=== PATIENT | male | born 1965 | race Caucasian/White ===

== ENCOUNTER 2018-11-30 13:08 | Emergency (ER) | payer OTHER ==
--- OUTSIDE RECORDS SUMMARY | 2018-11-30 13:11 | XMS REPORT | Continuity of Care Document ---
:1965 Author Organization [employer] Care Team Providers Name Role Phone [employer] Unavailable Unavailable Problems Problem Status Onset Classification Date Comments Source Date Reported SPONTANEOUS Active [facility] RIGHT 9 Medical HEMOTHORAX Center LARGE PLEURAL Active [facility] EFFUSION 9 Medical Center Pleural 10/08/2018 [facility] effusion, not Medical elsewhere Center classified PLEURAL Active [facility] EFFUSION, NOT Medical ELSEWHERE Center CLASSIFI Medications Medication Details Route Status Patient Ordering Order Source Instructions Provider Date naproxen 500 mg 500 mg=1 tab, Active [facility] oral tablet PO, BID, PRN 2019 Medical Pain, X 10 day, Center # 20 tab, 0 Refill(s), Pharmacy: [place] [id number] Acetaminophen 1,000 mg=2 tab, Active [place] 500 MG Oral PO, Q6H, 0 2018 Medical Tablet Refill(s) [place] Alprazolam 0.5 0.5 mg, 1 tab, No Longer [facility] MG Oral Tablet Route: PO, Drug Active 2018 Medical form: TAB, TID, Center Dosing Weight 90.455, kg, PRN as needed for anxiety, Start date: 10/02/18 13:43:00 CDT, Duration: 30 day, Stop date: 11/01/18 13:42:00 CDTNotes: With food or milk (Same as: Xanax) Naproxen 500 mg, 1 tab, No Longer [facility] Route: PO, Drug Active 2018 Medical form: TAB, Center Q12H, kg, Start date: 10/02/18 9:00:00 CDT, Duration: 30 day, Stop date: 10/31/18 21:00:00 CDTNotes: (Same as: Naprosyn) Take with food. gabapentin 300 mg, 1 cap, No Longer [facility] Route: PO, Drug Active 2018 Medical form: CAP, Q8H, Center kg, Start date: 10/02/18 8:00:00 CDT, Duration: 30 day, Stop date: 11/01/18 0:00:00 CDTNotes: (Same as: Neurontin) Iohexol 100 mL, Route: Inactive [facility] IVP, Drug Form: 2019 Medical SOLN, Dosing Center Weight 90.455, kg, ONCALL, STAT, Start date: 10/01/18 18:50:00 CDT, Duration: 1 doses or times, Dose=2.2ml/kg, Max fivc=150po -- "To be infused by Radiology Staff ONLY" Albuterol 0.833 3 mL, Route: No Longer [facility] MG/ML / NEB, Drug Form: Active 2019 Medical Ipratropium SOLN, Dosing Center [place] 0.167 Weight 90.455, MG/ML Inhalant kg, RQID, STAT, Solution Start date: [DuoNeb] 10/01/18 16:47:00 CDT, Duration: 30 day, Stop date: 10/31/18 15:00:00 CDTNotes: (Same as: Duoneb) Fentanyl 100 microgram, Inactive [facility] Route: IV, 2019 Medical ONCE, Dosing Center Weight 90.455, kg, Start date: 10/01/18 12:32:00 CDT, Stop date: 10/01/18 12:32:00 CDT Versed 4 mg, Route: Inactive [facility] IVP, ONCE, 2019 Medical Dosing Weight Center 90.455, kg, Start date: 10/01/18 12:32:00 CDT, Stop date: 10/01/18 12:32:00 CDT Lovenox 40 mg, 0.4 mL, No Longer [facility] Route: SUB-Q, Active 2019 Medical Drug form: INJ, Center [id number], Dosing Weight 90.455, kg, Start date: 09/30/18 17:00:00 CDT, Duration: 30 day, Stop date: 10/29/18 12:00:00 CDTNotes: (Same as: Lovenox) Albuterol 0.833 3 ml, Route: No Longer [place] MG/ML / NEB, Drug Form: Active 2019 Medical Ipratropium SOLN, Dosing Center [place] 0.167 Weight 90.455, MG/ML Inhalant kg, PRN, PRN Solution Respiratory [DuoNeb] Pathway, Start date: 09/30/18 16:16:00 CDT, Duration: 30 day, Stop date: 10/30/18 16:15:00 CDTNotes: (Same as: Duoneb) remove patch 1 patch, Route: No Longer [facility] TOP, Daily, Active 2018 Medical Drug form: [place] ERFILM, Start date: 09/30/18 13:00:00 CDT, Duration: 30 day, Stop date: 10/29/18 13:00:00 CDTNotes: Remove patch 12 hours after application each day. celecoxib 200 mg, 1 cap, No Longer [place] Route: PO, Drug Active 2019 Medical form: CAP, Center Q12H, kg, For patients LESS than 75 years old. Hold in all patients if CrCl Notes: NSAID. Please check indication. Not for seizure. (Same As: CeleBREX) Acetaminophen 1,000 mg, 2 No Longer [place] tab, Route: PO, Active 2019 Medical Drug form: TAB, Center Q6H, kg, Start date: 09/30/18 6:00:00 CDT, Duration: 30 day, Stop date: 10/30/18 0:00:00 CDTNotes: Max acetaminophen 4000 mg/day (4 gm/day). (Same as: Tylenol Extra Strength) Iohexol 75 mL, Route: Inactive [place] IVP, Drug Form: 2019 Medical SOLN, , Center ONCALL, STAT, Start date: 09/30/18 1:17:00 CDT, Duration: 1 doses or times, Dose=2.2ml/kg, Max chno=384pd -- "To be infused by Radiology Staff ONLY" Lidocaine 1 patch, Route: No Longer [place] Hydrochloride TOP, Q24H, Drug Active 2019 Medical 0.05 MG/MG form: FILM, Center Transdermal Start date: Patch 09/30/18 [Lidoderm] 1:00:00 CDT, Duration: 30 day, Stop date: 10/29/18 1:00:00 CDTNotes: . (Same as: Lidoderm) "Remove old patch before application of new patch" Enoxaparin 30 mg, 0.3 mL, Inactive [facility] Route: SUB-Q, 2019 Medical Drug form: INJ, Center [id number], , Start date: 09/30/18 1:00:00 CDT, Duration: 30 day, Stop date: 10/29/18 13:00:00 CDTNotes: (Same as: Lovenox) pregabalin 100 mg, 1 cap, No Longer [facility] Route: PO, Drug Active 2018 Medical form: CAP, Q8H, [facility], Priority: NOW, Start date: 09/30/18 0:01:00 CDT, Duration: 48 hr, Stop date: 10/02/18 0:00:00 CDTNotes: (Same as: Lyrica) Tramadol 100 mg, 2 tab, No Longer [facility] Route: PO, Drug Active 2018 Medical form: TAB, Q6H, [facility], Priority: NOW, Start date: 09/30/18 0:01:00 CDT, Duration: 30 day, Stop date: 10/30/18 0:00:00 CDTNotes: Not to exceed 400mg/day. (Same As: Ultram) Oxycodone 5 mg, 1 tab, No Longer [facility] Hydrochloride 5 Route: PO, Drug Active 2018 Medical MG Oral Tablet form: TAB, Q4H, [facility], PRN Pain Score 4-6, Start date: 09/30/18 0:01:00 CDT, Duration: 30 day, Stop date: 10/30/18 0:00:00 CDTNotes: (Same as: Roxicodone) Ketorolac 30 mg, Route: Inactive [facility] IVP, ONCE, , 2019 Medical Start date: [place] 09/30/18 0:01:00 CDT, Stop date: 09/30/18 0:01:00 CDT Allergies, Adverse Reactions, Alerts Substance Category Reaction Severity Reaction Status Date Comments Source type Reported No Known Assertion Drug [facility] Medication allergy Medical Allergies Center Immunizations No Data Provided for This Section Results Order Name Results Value Reference Date Interpretation Comments Source Range HEMATOLOGY Hct 35.9 42.0 - 10/03 [facility] 54.0 /2019 Medical Center HEMATOLOGY Hgb 11.9 14.0 - 10/03 [facility] 18.0 /2019 [facility] HEMATOLOGY WBC 12.5 3.7 - 10.4 10/02 [facility] HEMATOLOGY MCHC 33.6 32.0 - 10/02 [place] 36.0 [facility] HEMATOLOGY MCH 31.0 27.0 - 10/02 [place] 31.0 [facility] HEMATOLOGY Hgb 11.6 14.0 - 10/02 [place] 18.0 [facility] HEMATOLOGY RBC 3.76 4.70 - 10/02 [place] 6.10 [facility] HEMATOLOGY MCV 92.1 80.0 - 10/02 [place] 94.0 2019 [facility] HEMATOLOGY Hct 34.6 42.0 - 10/02 [place] 54.0 [facility] HEMATOLOGY Platelet 359 133 - 450 10/02 [facility] HEMATOLOGY RDW 13.1 11.5 - 10/02 [place] 14.5 [facility] HEMATOLOGY MPV 8.2 7.4 - 10.4 10/02 [facility] HEMATOLOGY Eosinophils 1.0 0.0 - 0.5 10/02 [facility] HEMATOLOGY Neutrophils 8.9 1.5 - 8.1 10/02 [facility] HEMATOLOGY Basophils 0.6 0.0 - 1.0 10/02 [facility] HEMATOLOGY Lymphocytes 15.1 20.0 - 10/02 [facility] 40.0 [facility] HEMATOLOGY Segs 71.0 45.0 - 10/02 [place] 75.0 [facility] HEMATOLOGY Monocytes 5.6 2.0 - 12.0 10/02 /2018 [facility] HEMATOLOGY Basophils # 0.1 0.0 - 0.2 10/02 [facility] HEMATOLOGY Monocytes # 0.7 0.0 - 0.8 10/02 /2018 [facility] HEMATOLOGY Lymphocytes 1.9 1.0 - 5.5 10/02 [facility] /2018 [facility] HEMATOLOGY Eosinophils 7.7 0.0 - 4.0 10/02 [facility]2018 [facility] HEMATOLOGY Segs 77.8 45.0 - 10/01 [place] 75.0 2019 [facility] HEMATOLOGY Lymphocytes 13.6 20.0 - 10/01 [place] 40.0 /2019 [facility] HEMATOLOGY Lymphocytes 2.6 1.0 - 5.5 10/01 [facility] /2019 [facility] HEMATOLOGY Basophils 0.4 0.0 - 1.0 10/01 [facility] HEMATOLOGY Eosinophils 2.3 0.0 - 4.0 10/01 [facility] HEMATOLOGY Basophils # 0.1 0.0 - 0.2 10/01 [facility] HEMATOLOGY Eosinophils 0.4 0.0 - 0.5 10/01 [place] # /2018 [facility] HEMATOLOGY Monocytes 5.9 2.0 - 12.0 10/01 [facility] HEMATOLOGY Neutrophils 15.0 1.5 - 8.1 10/01 [place] # /2019 [facility] HEMATOLOGY Monocytes # 1.1 0.0 - 0.8 10/01 [facility] HEMATOLOGY Hct 38.4 42.0 - 10/01 [place] 54.0 [facility] HEMATOLOGY MPV 8.6 7.4 - 10.4 10/01 [facility] HEMATOLOGY Hgb 12.8 14.0 - 10/01 [place] 18.0 [facility] HEMATOLOGY Platelet 443 133 - 450 10/01 [facility] HEMATOLOGY RDW 13.2 11.5 - 10/01 [place] 14.5 [facility] HEMATOLOGY RBC 4.15 4.70 - 10/01 [place] 6.10 [facility] HEMATOLOGY MCHC 33.4 32.0 - 10/01 [place] 36.0 2019 [facility] HEMATOLOGY MCH 30.9 27.0 - 10/01 [place] 31.0 [facility] HEMATOLOGY MCV 92.5 80.0 - 10/01 [place] 94.0 [facility] HEMATOLOGY WBC 19.2 3.7 - 10.4 10/01 [facility] [place] [id number] 09/30 [facility] BODY FLUIDS Nucleated 775 09/30 [facility] Cells BF /2018 [facility] BODY FLUIDS Lymph BF 12 09/30 [facility] BODY FLUIDS Neutrophils 86 09/30 [place] BF [facility] BODY FLUIDS Clarity BF Marked Clear 09/30 [place] *ABN* /2018 [facility] (09/30/18 5:48 AM) Center BODY FLUIDS CellCnt BF Pleural 09/30 [place] Type (09/30/18 5:48 AM) [facility] BODY FLUIDS Color BF Red Colorless 09/30 [place] *ABN* /2018 Medical (09/30/18 5:48 AM) Center BODY FLUIDS Eos BF 1 09/30 [facility] BODY FLUIDS Macrophage 1 09/30 [facility] BF [facility] BODY FLUIDS Supernat BF Red Colorless 09/30 [facility] *ABN* [facility] (09/30/18 5:48 AM) [place] BODY FLUIDS Alb BF Type Pleural 09/30 [facility] *NA* [facility] (09/30/18 5:48 AM) [place] BODY FLUIDS Albumin BF 2.1 09/30 [facility] BODY FLUIDS Prot BF Type Pleural 09/30 [facility] *NA* [facility] (09/30/18 5:48 AM) [place] BODY FLUIDS Protein BF 4.9 09/30 [facility] BODY FLUIDS pH BF 8.00 09/30 [facility] BODY FLUIDS pH BF Type Pleural 09/30 [facility] (09/30/18 5:48 AM) [facility] BODY FLUIDS LDH BF 2891 09/30 [facility] BODY FLUIDS LDH BF Type Pleural 09/30 [facility] (09/30/18 5:48 AM) [facility] BODY FLUIDS Glucose BF 121 09/30 [facility] BODY FLUIDS Gluc BF Type Pleural 09/30 [facility] *NA* [facility] (09/30/18 5:48 AM) [place] Gram Stain Gram Stain 09/30 [facility] Report Medical By: [facility] Culture: No Growth 09/30 [facility] Aspirate/ [facility] Fluid/Tissue CHEM PANEL Total 7.6 6.4 - 8.4 09/30 [facility] CHEM PANEL LDH 433 98 - 192 09/30 [place] [facility] CHEM PANEL eGFR 99 09/30 Result Comment: The Medical eGFR is Center calculated using the CKD-EPI formula. In most young, healthy individuals the eGFR will be >90 mL/min/1.73m2 . The eGFR declines with age. An eGFR of 60-89 may be normal in some populations, particularly the elderly, for whom the CKD-EPI formula has not been extensively validated. Use of the eGFR is not recommended in the following populations:< br/>
Yana viduals with unstable creatinine concentration s, including patients and those with serious co-morbid conditions.<b r/>
Patie nts with extremes in muscle mass or diet.

The data above are obtained from the National Kidney Disease Education Program (NKDEP) which additionally recommends that when the eGFR is used in patients with extremes of body mass index for purposes of drug dosing, the eGFR should be multiplied by the estimated BMI. CHEM PANEL Potassium 4.7 3.5 - 5.1 09/30 [facility] Lvl /2018 [facility] CHEM PANEL Chloride Lvl 105 95 - 109 09/[address] CHEM PANEL CO2 24 24 - 32 09/[address] CHEM PANEL Calcium Lvl 9.0 8.5 - 10.5 09/[address] CHEM PANEL Glucose Lvl 174 70 - 99 09/[address] CHEM PANEL AGAP 15.7 10.0 - 09/30 [facility] 20.0 [facility] CHEM PANEL BUN 16 7 - 22 09/[address] CHEM PANEL Creatinine 0.84 0.50 - 09/30 [facility] Lvl 1.40 [facility] CHEM PANEL Sodium Lvl 140 135 - 145 09/30 [facility]2018 [facility] HEMATOLOGY MCHC 33.6 32.0 - 09/30 [facility] 36.0 [facility] HEMATOLOGY MCH 31.2 27.0 - 09/30 [facility] 31.0 [facility] HEMATOLOGY WBC 18.3 3.7 - 10.4 09/30 [facility]2018 [facility] HEMATOLOGY MCV 92.8 80.0 - 09/30 [facility] 94.0 [facility] HEMATOLOGY RBC 4.31 4.70 - 09/30 [facility] 6.10 [facility] HEMATOLOGY MPV 8.5 7.4 - 10.4 09/[address] HEMATOLOGY Platelet 363 133 - 450 09/[address] HEMATOLOGY RDW 13.1 11.5 - 09/30 [facility] 14.5 [facility] Pathology Reports No Data Provided for This Section Diagnostic Reports Report Value Date Source Chest 1view DX EXAM: XR CHEST 1 VIEW 10/03/2018 [facility] Medical DATE: 10/03/2018 0035 hours Center INDICATION: - CT removal COMPARISON: Chest radiograph 10/02/2018. TECHNIQUE: AP chest. FINDINGS: Lines, tubes and hardware: None. Lungs and pleura: Bilateral hazy airspace opacities. Right pleural effusion. Small right apical pneumothorax, stable. Heart and mediastinum: The heart size is normal for technique. The mediastinal contours are normal. Pulmonary venous hypertension and interstitial pulmonary edema are present. Upper: Abdomen: No abnormally dilated bowel loops are seen in the included portion of the upper abdomen. Bones: No acute abnormality. IMPRESSION: 1. No significant change from prior study. Bilateral hazy opacities which likely represent comminution atelectasis and interstitial pulmonary edema. Superimposed infection cannot be excluded. 2. Small right pleural effusion. 3. Small right apical pneumothorax, stable. Chest 1view DX EXAM: XR CHEST 1 VIEW 10/02/2018 [facility] [place] [facility] DATE: 10/02/2018 4:15 PM CDT Center INDICATION: - 4H post CT removal COMPARISON: 10/02/2018 TECHNIQUE: AP chest FINDINGS/IMPRESSION: Compared to the prior examination there remains a tiny right apical pneumothorax. There is bilateral pulmonary opacities compatible with pneumonia or pulmonary edema. Chest 1view DX EXAM: XR CHEST 1 VIEW 10/02/2018 [facility] [place] [facility] DATE: 10/02/2018 0358 hours. Center INDICATION: Cough. COMPARISON: Chest radiograph 10/01/2018 TECHNIQUE: AP chest. FINDINGS: Lines, tubes and hardware: Chest tube projects over the right hemithorax and is unchanged from prior study. Lungs and pleura: Bilateral patchy and hazy airspace opacities are seen. Trace right apical pneumothorax is unchanged. Heart and mediastinum: The heart size is normal for technique. The mediastinal contours are normal. Pulmonary vascularity is normal. Upper: Abdomen: No abnormally dilated bowel loops are seen in the included portion of the upper abdomen. Bones: No acute abnormality. IMPRESSION: 1. Interval improvement in the bilateral patchy and hazy airspace opacities. These likely represent a combination of atelectasis, pulmonary edema , aspiration, and/or infection. 2. Trace right apical pneumothorax, stable. Chest Pulmonary EXAM: CTA CHEST WITH CONTRAST 10/01/2018 [facility] [place] [facility] Embolism CTA DATE: 10/01/2018 17:56 CDT Center INDICATION: - hypoxia COMPARISON: 09/30/2018 TECHNIQUE: Volumetric CT acquisition of the chest, during pulmonary arterial phase, after intravenous contrast. Axial, sagittal, coronal, and oblique MIP reconstructions are created at the acquisition workstation. IV Contrast: 80 mL of Omnipaque 350 DLP: 720 mGy-cm FINDINGS: Lines, tubes and hardware: A right approach chest tube is seen within the right hemithorax within a small pneumothorax. Lower neck: Mildly enlarged 1.2 cm left supraclavicular lymph node is noted. Axilla: Expected subcutaneous emphysema secondary to chest tube placement in the right chest wall. No enlarged lymph nodes. Airway: Patent. Lungs and pleura: * Moderate paraseptal and centrilobular emphysema left greater than right with an upper lobe predominance. * A 2.5 x 3.0 cm solid, round, well-defined mass with adjacent groundglass opacities is seen in the anterior and inferior aspect of the right upper lobe ( series 7, image 81). * A 1 cm, round, solid pulmonary nodule seen in the lateral aspect of the apical segment of the right upper lobe (series 7, image 45). * And the previously seen large area of heterogeneously enhancing consolidation that occupies a large portion of the right lower lobe and part of the right middle lobe with air bronchograms has improve d compared to the previous study suggestive of improving infectious process. * Diffuse groundglass opacity seen in the left upper and lower lobes which may represent inflammatory or infectious etiology, slightly improved compared to previous study. * Trace right hydropneumothorax is present, increased compared to previous study. Mediastinum, milagros and intrathoracic lymph nodes: Large paratracheal mildly enhancing lymph node that measures 2.2 x 2.2 cm is seen on image 74 of series 7. A 1.6 x 1.5 cm enlarged lymph node in the AP w indow seen on image 73 series 7. Multiple hilar and mediastinal subcentimeter lymph nodes are also seen. Heart, pericardium and great vessels: The heart is normal in size. No pericardial effusion. Ascending aorta is ectatic, the pulmonary trunk is at the upper limits of normal. Minimal aortic and coronary calcifications are seen. Measurements and appearance of the thoracic aorta are normal. At the same level where the ascending aorta measures 3.6 cm the pulmonary trunk measures 3.0 cm. There is no pulmonary embolus. Upper abdomen: Adrenal glands are unremarkable. Bones: No acute abnormality. Age-related degenerative findings. Soft tissues: Normal. IMPRESSION: 1. No pulmonary embolism. No CT evidence of right heart strain. 2. Interval decrease in the size of the small right hydropneumothorax with chest tube in place. 3. Stable right upper lobar solid pulmonary lesions, highly concerning for neoplastic process either primary or secondary. 4. No new lung nodules identified. 5. Interval improvement in the right lung consolidative changes and left lung groundglass opacities suggestive of improving infectious or inflammatory changes. 6. Mediastinal lymphadenopathy is present, with large right paratracheal lymph node measuring up to 2.2 cm in diameter with globular shape. 7. Moderate paraseptal and centrilobular emphysema left greater than right with an upper lobe predominance. 8. Scattered aortic and coronary artery calcifications. Chest 1view DX EXAM: XR CHEST 1 VIEW 10/01/2018 [facility] [place] [facility] DATE: 10/01/2018 16:45 [facility] Center INDICATION: - shortness of breath s/p lung biopsy COMPARISON: 10/01/2018 TECHNIQUE: AP chest. FINDINGS: Sidehole of right chest tube remains overlying the subcutaneous and should be advanced. Stable small right hydropneumothorax. Background of emphysema. Alveolar opacity projecting over the right midlung corresponds right upper lobe mass concerning for malignancy better seen on prior CT. Patchy opacities bilaterally with bibasilar predominance may represent infectious/inflammatory etiology or edema, unchanged. Stable cardiac mediastinal silhouette. IMPRESSION: 1. Overall findings are stable since prior chest radiograph as described above. 2. The sidehole of right chest tube remains overlying subcutaneous and should be advanced. 3. Stable small right hydropneumothorax. Chest 1view DX EXAM: XR CHEST 1 VIEW 10/01/2018 [facility] [place] [facility] DATE: 10/01/2018 10:58 T Center INDICATION: - shortness of breath COMPARISON: 09/30/2018 TECHNIQUE: AP chest. FINDINGS: Sidehole of right chest tube remains overlying the subcutaneous and should be advanced. Small right hydropneumothorax. Low lung volumes. Background of emphysema. Nodular opacity projecting over the right midlung corresponds to right upper lobe mass concerning for malignancy better seen on CT chest 09/30/2018. Patchy opa cities bilaterally with bibasilar predominance may represent infectious/ inflammatory etiology or edema. Stable cardiomediastinal silhouette. Partially imaged subcutaneous emphysema in the right chest wall. IMPRESSION: 1. Stable right upper lobe mass concerning for malignancy. Please refer to prior CT. 2. Patchy opacities bilaterally are stable and may represent infectious/ inflammatory etiology or edema. 3. Sidehole of right chest tube remains overlying the subcutaneous and should be advanced. Small right hydropneumothorax is unchanged. Chest 1view DX EXAM: Chest 1view DX 09/30/2018 [facility] [place] [facility] DATE: 09/30/2018 3:20 CDT Center INDICATION: - pleural effusion with chest tube ADDITIONAL HISTORY: Spontaneous hemothorax. COMPARISON: Chest 1 view 09/29/2018 at 2306 hours. TECHNIQUE: Portable AP semierect chest with a total of 1 image(s). FINDINGS: Lines, tubes, devices: Again seen is a right mid chest tube now with the distal side port just outside of the rib cage level. Lungs: The lung volumes are diminished with patchy and groundglass opacities at the right lung base and throughout the left lung. Pleura: There is a small right pleural effusion/hemothorax. There is a small right apical pneumothorax that is grossly unchanged. Heart and mediastinum: The heart size is normal for technique. The pulmonary vasculature is obscured. The mediastinal contours are normal. Bones: No acute bony abnormality is identified. Soft Tissue: Again seen is subcutaneous emphysema along the right lower lateral chest wall. IMPRESSION: 1. No change in the small right apical pneumothorax. 2. Right mid chest tube position with the distal side port just outside the rib cage level. 3. No change in patchy and groundglass opacities at the right lung base and throughout the left lung. Chest w contrast CT EXAM: CT CHEST WITH CONTRAST 09/30/2018 [facility] [place] [facility] DATE: 09/30/2018 0115 hours Center INDICATION: - Pleural effusion of unknown etiology COMPARISON: Chest radiograph 09/29/2018 at 2306 hours. TECHNIQUE: Volumetric CT of the chest is acquired following intravenous administration of contrast. Axial, coronal and sagittal images are provided. Axial MIPS images are provided. IV Contrast: 75 mL Omnipaque 350. DLP: 734 mGy-cm FINDINGS: Lines, tubes and hardware: A right approach chest tube is seen within the right hemithorax within a small pneumothorax. Lower neck: Mildly enlarged 1.2 cm left supraclavicular lymph node is noted. Axilla: Expected subcutaneous emphysema secondary to chest tube placement in the right chest wall. No enlarged lymph nodes. Airway: Patent. Lungs and pleura: * Moderate paraseptal and centrilobular emphysema left greater than right with an upper lobe predominance. * A 2.5 x 3.0 cm solid, round, well-defined mass with adjacent groundglass opacities is seen in the anterior and inferior aspect of the right upper lobe ( series 4, image 80). * A 1 cm, round, solid pulmonary nodule seen in the lateral aspect of the right upper lobe. * Large area of heterogeneously enhancing consolidation that occupies a large portion of the right lower lobe and part of the right middle lobe with air bronchograms present that likely represents an infectious etiology. * Diffuse groundglass opacity seen in the left upper and lower lobes which may represent inflammatory or infectious etiology. * Small right hydropneumothorax is present. Mediastinum, milagros and intrathoracic lymph nodes: Large paratracheal mildly enhancing lymph node that measures 2.2 x 2.2 cm is seen on image 71 of series 4. A 1.3 x 1.3 cm enlarged lymph node in the AP w indow seen on image 64 series 4. Multiple hilar and mediastinal subcentimeter lymph nodes are also seen. Heart, pericardium and great vessels: The heart is normal in size. No pericardial effusion. Ascending aorta is ectatic, the pulmonary trunk is at the upper limits of normal. Minimal aortic and coronary calcifications are seen. Upper abdomen: Mild hepatomegaly. Adrenal glands are unremarkable. Bones: No acute abnormality. Age-related degenerative findings. Soft tissues: Normal. IMPRESSION: 1. Small right hydropneumothorax with chest tube in place. 2. A 2.5 x 3.0 cm solid, irregular mass with adjacent groundglass opacities is seen in the anterior and inferior aspect of the right upper lobe (series 4, image 80). This is concerning for malignancy. An additional 1 cm round solid pulmonary nodules seen in the lateral aspect of the left upper lobe and is concerning for a primary malignancy or metastases. 3. Mediastinal lymphadenopathy is present, with large right paratracheal lymph node measuring 2.4 x 2.3 cm on series 4 image 67. 4. Large area of heterogeneously enhancing consolidation that occupies a large portion of the right lower lobe and part of the right middle lobe with air bronchograms present that likely represents a c ombination of atelectasis and infectious etiology. Superimposed hemorrhage not excluded. 5. Diffuse groundglass opacity seen in the left upper and lower lobes which is nonspecific but could represent edema, infection and/or pneumonitis. 6. Moderate paraseptal and centrilobular emphysema left greater than right with an upper lobe predominance. 7. Scattered aortic and coronary artery calcifications. Chest 1view DX EXAM: XR CHEST 1 VIEW 09/29/2018 [facility] DATE: 09/29/2018 at 2306 hours Center INDICATION: - SOB, after chest tube placement ADDITIONAL INFORMATION: 'tx from [facility] for spontaneous RIGHT sided hemothorax. chest tube in place since 1644 with total 2500ml output.' COMPARISON: Chest 1 view 09/29/2018 at 1803 hours TECHNIQUE: AP semierect chest with a total of 2 images. UT SECTION: ER FINDINGS: Lines, tubes and hardware: The right-sided chest tube has been advanced medially with the distal side port just inside the rib cage level. Lungs and pleura: A small apical pneumothorax on the right persists. Hazy opacities are seen in the lower lungs bilaterally. There is a small right-sided pleural effusion/hemothorax. Heart and mediastinum: The heart size is normal for technique. The mediastinal contours are normal. Bones: No acute abnormality. Soft tissues: There is subcutaneous emphysema along the right lower lateral chest wall adjacent to the chest tube. IMPRESSION: 1. Persistent small right apical pneumothorax with repositioning of the right-sided chest tube. 2. Hazy opacities in the lower lungs bilaterally may represent any combination of pulmonary contusion, atelectasis, inflammation or edema. Consultation Notes No Data Provided for This Section Discharge Summaries No Data Provided for This Section History and Physicals No Data Provided for This Section Vital Signs Vital Sign Value Date Comments Source Temperature Oral (F) 98.6 F 10/07/2018 [facility] Respitory Rate 18 10/07/2018 [facility] Respitory Rate 18 10/06/2018 [facility] Systolic (mm Hg) 124 10/06/2018 [facility] Diastolic (mm Hg) 86 10/06/2018 [facility] Heart Rate 101 10/06/2018 [facility] Temperature Oral (F) 98.2 F 10/06/2018 [facility] Respitory Rate 17 10/06/2018 [facility] Systolic (mm Hg) 130 10/06/2018 [facility] Diastolic (mm Hg) 88 10/06/2018 [facility] Heart Rate 99 10/06/2018 [facility] Temperature Oral (F) 99.1 F 10/06/2018 [facility] Heart Rate 98 10/06/2018 [facility] Systolic (mm Hg) 152 10/06/2018 [facility] Diastolic (mm Hg) 78 10/06/2018 [facility] Height 185.42 cm 09/30/2018 [facility] Weight 90.455 09/30/2018 [facility] BMI Calculated 26.31 09/30/2018 [facility] Encounters Location Location Encounter Encounter Reason Attending ADM DC Status Source Details Type Number For Provider Date Date Visit [facility] [id number] Josias Chong 09/29 10[facility] Procedures No Data Provided for This Section Assessment and Plan Assessment and Plan Date Source Extracted from:Title: Pulmonology Initital Consult Note 10/07/2018 [facility] Author: Abbey Meyers MD Date: 10/01/18 53 year old male with PMH of lung nodules being followed by PCP, current tobacco use (19 pack year) transferred from OSH for right hemothorax s/p chest tube placement at outside hospital with 2.5 L of s erosanguinous output initially. Denies any trauma other thanrightsided rib pain after picking up heav toolbox [address] Chest with findings of 2.5 x 3.0 cm solid irregular mass as well as additiona l 1 cm round solid pulmonary nodules seen in the lateral aspect of the left upper lobe and mediastinal lymphadenopathy with large right paratracheal lymph node measuring 2.4 x 2.3 cm. Pulmonary team consulted for biopsy. Problem List Right upper lobe mass (2.5 x 3.0 cm) andlymphadenopathy 1 cm pulmonary nodule in lateral right upper lobe Right sided hemothorax s/p chest tube Emphysema on CT Chest Tobacco use Recommendations -Given spontaneous hemothorax + findings of lung mass/nodule + tobacco history , concerning formalignancy.Will proceed with EBUS with biopsy. Patient has been consented. -Management of chest tube per trauma surgery Thank you for this interesting consult. Patient was seen and plan discussed with pulmonology attending, Dr. Ayala. Abbey Meyers MD PGY-2, Internal Medicine [facility] Pulmonary/Critical Care Attending Note I have seen and evaluated the patient. I have reviewed Dr. Meyers's note on and agree with their exam, assessment and plan with exceptions noted below. I have personally reviewed the CXR and labs. 53M with current tobacco dependence, history of pulmonary nodules who presented with hemothorax. CT chest right lung mass, pulmonary nodules and mediastinal lymphadenopathy. Imaging findings are concern ing for malignancy. Will proceed with diagnostic bronchoscopy with interventional service crew supervisor. Extracted from:Title: History and Physical Author: Yaya Frausto MD Date: 09/30/18 1.Hemothorax(J94.2) - s/p chest tube. Poor output, can likely be pulled tomorrow. - Gram stain negative. - Pulm consulted, will see tomorrow. 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 3.Emphysema/COPD(J43.9) - arlette prn - pfts outpt [facility] home Plan of Care No Data Provided for This Section Social History Social History Date Source Social History TypeResponse 09/30/2018 [facility] Smoking Status Never smoker; Exposure to Tobacco Smoke None; Cigarette Smoking Last 365 Days No; Reg Smoking Cessation Counseling No entered on: 09/30/18 Family History No Data Provided for This Section Advance Directives No Data Provided for This Section Functional Status No Data Provided for This Section
--- OUTSIDE RECORDS SUMMARY | 2018-11-30 13:12 | XMS REPORT ---
:1965 [facility] [address] [place] [address] [address]. [address] [place] [address] Care Team Providers Name Role Phone Unavailable Unavailable Unavailable Problems This patient has no known problems. Allergies, Adverse Reactions, Alerts This patient has no known allergies or adverse reactions. Medications This patient has no known medications. Encounters Start End Encounter Admission Attending Care Care Encounter Date/Time Date/Time Type Type Clinicians Facility Department ID 2018-10-02 2018-09-30 Inpatient [facility] [id number] 10:10:00 00:06:00
[2018-11-30] MEDS ORDERED: CEFTRIAXONE/SWI 1gm 1 GM/10 ML SYR ONE (13:46)
[2018-11-30] MEDS ORDERED: NA CHLORIDE 0.9% 1,000 ML ONE ×2 (13:46→16:08)
[2018-11-30] MEDS ORDERED: ACETAMINOPHEN 325 MG TABLET ONE ×2 (13:48→14:15)
[2018-11-30 14:06] LABS: Arterial Blood Carboxyhemoglob 1.7 % (0-1.5); Blood Gas Oxyhemoglobin 95.3 % (94-97); Blood O2 Saturation 97.7 % (92-98.5)
[2018-11-30 14:08] LABS: Urine Bacteria NONE SEEN /HPF (NONE SEEN); Urine Culture Reflex Order NOT NEEDED; Urine RBC <5 /HPF (NONE SEEN)
[2018-11-30 14:09] LABS: Urine Amorphous Sediment 2+ /HPF (NONE SEEN); Urine Mucus LIGHT /HPF (NONE SEEN)
[2018-11-30 14:27] LABS: Absolute Lymphocytes (CBC) 1.6 K/uL (0.7-4.9); Basophils % 0.4 % (0-1.3); Hematocrit 30.3 % (39.6-49.0); Lymphocytes % 6.2 % (15.3-44.8); MPV 7.8 fL (7.6-11.3); RBC Red Blood Cell Count 3.48 M/uL (4.33-5.43)
[2018-11-30 14:30] LABS: Protime INR 1.61
[2018-11-30 14:47] LABS: ALT/SGPT 25 U/L (12-78); AST/SGOT 17 U/L (15-37); Albumin 1.7 g/dL (3.4-5.0); Alkaline Phosphatase 131 U/L (45-117); BUN Blood Urea Nitrogen 13 mg/dL (7-18); Bicarbonate 27 mmol/L (21-32); Bilirubin Direct 0.4 mg/dL (0-0.2); Creatine Phosphokinase 63 U/L (39-308); Glucose Level 152 mg/dL (74-106); Lipase 135 U/L (73-393); Potassium 3.8 mmol/L (3.5-5.1); Protein, Total 7.5 g/dL (6.4-8.2); Sodium Level 137 mmol/L (136-145); Troponin (Emerg Dept Use Only) < 0.02 ng/mL (0.0-0.045)
[2018-11-30 15:20] LABS: Urine Blood NEGATIVE (NEG); Urine Glucose NEGATIVE (NEG); Urine Protein 1+ (NEG)
[2018-11-30 15:38] LABS: Blood Morphology Comment NOT SEEN (NOT SEEN); Platelet Estimate ADEQ
--- NOTE | 2018-11-30 16:04 | RAD REPORT ---
EXAM DESCRIPTION: CT - Head Brain W/Wo Con - 11/30/2018 3:25 pm CLINICAL HISTORY: Seizure COMPARISON: None. TECHNIQUE: Computed axial tomography of the head was obtained. Unenhanced and enhanced images obtain ed. 50 cc Isovue-[address] scans are performed using dose optimization technique as appropriate and may include automated exposure control or mA/KV adjustment according to patient size. FINDINGS: Approximately 20 hemorrhagic lesions within the cerebellum and cerebral bilaterally The lesions vary in size from a few millimeters to 2 centimeters. Moderate vasogenic edema surrounds several lesions. Shift of the midline structures 3 millimeters to the right. The left lateral ventric le is compressed No extra-axial fluid collection is noted. Fluid within the sinuses/ mastoids is not seen. IMPRESSION: Hemorrhagic metastases. Exam discussed with Dr. Burgess in the Emergency Room 3:55 p.m. [facility] 2018
[2018-11-30] MEDS ORDERED: CEFEPIME 1 GM/100 ML BAG IV ONE (16:08)
[2018-11-30] MEDS ORDERED: dexAMETHasone 10 MG/ML VIAL ONE (16:08)
[2018-11-30] MEDS ORDERED: levETIRAcetam 1,500 MG in NA CHLORIDE 0.9% 100 ML IV ONE (16:15)
--- NOTE | 2018-11-30 16:48 | ER ---
Nurse's Notes [facility] Name: Kwadwo Polo Age: 53 yrs Sex: Male : 1965 Arrival Date: 11/30/2018 Time: 13:15 Bed 8 Private MD: Diagnosis: Epilepsy and recurrent seizures;Secondary malignant neoplasm of brain Presentation: 11/30 13:16 Presenting complaint: EMS states: Fever 104, malaise, family on scene reports seizure hb activity x 2. Pt has Stage 3 CA[facility] Transition of care: patient was not received from another setting of care. Onset of symptoms was November 30, 2018. Risk Assessment: Do you want to hurt yourself or someone else? Patient reports no desire to harm self or others. Initial Sepsis Screen: Does the patient meet any 2 criteria? RR > 20 per min. Temp <36.0*C (96.8*F)) or > 38.3*C (100.9*F). HR > 90 bpm. Yes Does the patient have a suspected source of infection? No. Patient's initial sepsis screen is negative. Care prior to arrival: Medication(s) given: Normal saline infusion, 500 mL, IV initiated. 18 GA, in the left antecubital area. 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 - Social history:: Smoking status: Patient/guardian denies using tobacco. - Ebola Screening: : No symptoms or risks identified at this time. Screenin:25 Abuse screen: Denies threats or abuse. Denies injuries from another. Nutritional hb screening: No deficits noted. Tuberculosis screening: No symptoms or risk factors identified. Fall Risk Total Iraheta Fall Scale indicates Low Risk Score (25-44 pts). Fall prevention measures have been instituted. Side Rails Up X 2 Frequent Obs/Assesments occuring Family Present and informed to notify staff if they need to leave bedside As available Patient and Family Educated on Fall Prevention Program and strategies. Assessment: 13:30 General: Appears in no apparent distress. ill, Behavior is calm, cooperative. Pain: hb Pain currently is 6 out of 10 on a pain scale. Neuro: Level of Consciousness is awake, alert, obeys commands, Oriented to person, place, time, situation. Cardiovascular: Heart tones S1 S2 present Capillary refill < 3 seconds Patient's skin is warm and dry. Respiratory: Airway is patent Respiratory effort is even, unlabored, Respiratory pattern is regular, symmetrical, Breath sounds are clear bilaterally. GI: No signs and/or symptoms were reported involving the gastrointestinal system. : No signs and/or symptoms were reported regarding the genitourinary system. EENT: No signs and/or symptoms were reported regarding the EENT system. Derm: Skin is pink, warm \T\ dry. Musculoskeletal: No signs and/or symptoms reported regarding the musculoskeletal system. 14:30 Reassessment: Patient appears in no apparent distress at this time. No changes from previously documented assessment. Patient and/or family updated on plan of care and expected duration. Pain level reassessed. Patient is alert, oriented x 3, equal unlabored respirations, skin warm/dry/pink. 15:30 Reassessment: Patient appears in no apparent distress at this time. Patient and/or hb family updated on plan of care and expected duration. Pain level reassessed. Patient is alert, oriented x 3, equal unlabored respirations, skin warm/dry/pink. 16:30 Reassessment: Patient appears in no apparent distress at this time. No changes from hb previously documented assessment. Patient and/or family updated on plan of care and expected duration. Pain level reassessed. Patient is alert, oriented x 3, equal unlabored respirations, skin warm/dry/pink. 17:05 Reassessment: Report called to Sheri TRAMMELL at [facility]. 17:46 Reassessment: Patient appears in no apparent distress at this time. No changes from previously documented assessment. Patient and/or family updated on plan of care and expected duration. Pain level reassessed. Patient is alert, oriented x 3, equal unlabored respirations, skin warm/dry/pink. 18:15 Reassessment: Patient appears in no apparent distress at this time. Patient and/or hb family updated on plan of care and expected duration. Pain level reassessed. Patient is alert, oriented x 3, equal unlabored respirations, skin warm/dry/pink. Awaiting transport to [facility] at this time. Vital Signs: 13:16 BP 115 / 78; Pulse 131; Resp 33; Temp 102.4(O); Pulse Ox 98% on 3 lpm NC; Weight 81.65 hb kg; Height 6 ft. 1 in. (185.42 cm); Pain 6/10; 14:00 BP 109 / 78; Pulse 130; Resp 30; Pulse Ox 97% on R/A; hb 15:00 BP 106 / 76; Pulse 115; Resp 29; Temp 100.1; Pulse Ox 98% on 3 lpm NC; hb 16:19 BP 117 / 93; Pulse 104; Resp 21; Pulse Ox 96% 3 lpm ; Pain 0/10; hb 17:15 BP 108 / 82; Pulse 99; Resp 29; Pulse Ox 100% on 3 lpm NC; hb 18:16 BP 121 / 90; Pulse 104; Resp 18; Pulse Ox 98% 3 lpm ; hb 18:34 BP 111 / 83; Pulse 97; Resp 22; Pulse Ox 95% ; sv 13:16 Body Mass Index 23.75 (81.65 kg, 185.42 cm) hb ED Course: 13:15 Patient arrived in ED. hb 13:16 Kishor Burgess MD is Attending Physician. gs 13:18 Triage completed. hb 13:18 Arm band placed on. hb 13:30 Patient has correct armband on for positive identification. Placed in gown. Bed in low hb position. Call light in reach. Side rails up X2. 13:45 Ying Ross, RN is Primary Nurse. hb 14:24 Chest Single View XRAY In Process Unspecified. EDMS 15:25 CT completed. Patient tolerated procedure well. Patient moved back from CT. mw3 15:25 Head Brain W/Wo Con In Process Unspecified. EDMS 16:51 CT Chest Wo Con In Process Unspecified. EDMS 18:54 No provider procedures requiring assistance completed. Patient transferred, IV remains hb in place. Administered Medications: 14:13 Drug: NS 0.9% 1000 ml Route: IV; Rate: 1 bolus; Site: left antecubital; hb 14:14 Drug: Tylenol 650 mg Route: PO; hb 14:30 Drug: Rocephin - (cefTRIAXone) 1 grams Route: IVPB; Infused Over: 30 mins; Site: left hb antecubital; 15:56 CANCELLED (Duplicate Order): Keppra 1000 mg IV at 1000 bolus once gs 16:19 Drug: Cefepime 1 grams Route: IVPB; Rate: 200 ml/hr; Infused Over: 30 mins; Site: left hb antecubital; 16:19 Drug: Decadron - Dexamethasone 10 mg Route: IVP; Site: left antecubital; hb 17:03 Drug: Keppra 1500 mg Route: IV; Rate: 1 bolus; Site: left antecubital; hb Outcome: 16:47 ER care complete, transfer ordered by . gs 18:54 Transferred by [facility] to [facility]. hb 18:54 Condition: stable 18:54 Instructed on the need for transfer, Demonstrated understanding of instructions. 18:55 Patient left the ED. hb Signatures: Dispatcher [employer] EDNuvia Bridges RN RN Ying Ross RN RN Kishor Burgess MD MD gs Willis, Michelle mw3 Corrections: (The following items were deleted from the chart) 13:45 13:16 BP 115 / 78; Pulse 131bpm; Resp 33bpm; Pulse Ox 98% 3 lpm Nasal Cannula; sv hb 16:20 14:00 BP 116 / 76; Pulse 115bpm; Resp 29bpm; Pulse Ox 98% 3 lpm Nasal Cannula; hb hb 16:20 16:20 BP 117 / 93; Pulse 107bpm; Resp 26bpm; Pulse Ox 96%; sv hb 16:32 14:00 BP 106 / 76; Pulse 115bpm; Resp 29bpm; Pulse Ox 98% 3 lpm Nasal Cannula; hb hb 16:33 16:19 BP 117 / 93; Pulse 104bpm; Pulse Ox 96% 3 lpm; Temp 37F; Pain 0/10; hb hb 18:16 17:15 BP 108 / 82; Pulse 99bpm; Resp 29bpm; Pulse Ox 100% RA; hb hb
--- NOTE | 2018-11-30 16:48 | EDPHYS ---
Physician Documentation [facility] Name: Kwadwo Polo Age: 53 yrs Sex: Male : 1965 Arrival Date: 11/30/2018 Time: 13:15 Bed 8 Private MD: ED Physician Kishor Burgess HPI: 11/30 16:20 This 53 yrs old Unknown Male presents to ER via EMS with complaints of Fever, Possible gs Seizure. 16:20 Onset: The symptoms/episode began/occurred gradually, 2 day(s) ago. Modifying factors: gs there are no obvious modifying factors. Associated signs and symptoms: Pertinent positives: seizure x 2 one 3 days ago and one today. says 1st was shaking rue extremity only, today shaking all over bit tongue, no confusion. Severity of symptoms: At their worst the symptoms were severe in the emergency department the symptoms are unchanged. The patient has not experienced similar symptoms in the past. 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 - Social history:: Smoking status: Patient/guardian denies using tobacco. - Ebola Screening: : No symptoms or risks identified at this time. ROS: 16:20 Constitutional: Positive for fatigue, fever, malaise. gs 16:30 Respiratory: Positive for cough. gs 16:30 Neuro: Positive for seizure activity. 16:30 All other systems are negative. Exam: 16:30 Head/Face: Normocephalic, atraumatic. Eyes: Pupils equal round and reactive to light, gs extra-ocular motions intact. Lids and lashes normal. Conjunctiva and sclera are non-icteric and not injected. Cornea within normal limits. Periorbital areas with no swelling, redness, or edema. Neck: Trachea midline, no thyromegaly or masses palpated, and no cervical lymphadenopathy. Supple, full range of motion without nuchal rigidity, or vertebral point tenderness. No Meningismus. 16:30 Chest/axilla: Normal chest wall appearance and motion. Nontender with no deformity. No lesions are appreciated. Respiratory: Lungs have equal breath sounds bilaterally, clear to auscultation and percussion. No rales, rhonchi or wheezes noted. No increased work of breathing, no retractions or nasal flaring. 16:30 Constitutional: The patient appears alert, awake, in obvious distress, severely distressed. 16:30 ENT: Mouth: Tongue: has a laceration. 16:30 Cardiovascular: Rate: tachycardic, Rhythm: regular, Pulses: no pulse deficits are appreciated. 16:30 Abdomen/GI: Palpation: abdomen is soft and non-tender. 16:30 Back: pain, is absent. 16:30 Musculoskeletal/extremity: Circulation is intact in all extremities. 16:30 Skin: Appearance: Color: pale. 16:30 Neuro: Orientation: to person, place, time \T\ situation. Cranial nerves: CN II- XII are normal as tested, Motor: moves all fours, Sensation: no obvious gross deficits. Vital Signs: 13:16 BP 115 / 78; Pulse 131; Resp 33; Temp 102.4(O); Pulse Ox 98% on 3 lpm NC; Weight 81.65 hb kg; Height 6 ft. 1 in. (185.42 cm); Pain 6/10; 14:00 BP 109 / 78; Pulse 130; Resp 30; Pulse Ox 97% on R/A; hb 15:00 BP 106 / 76; Pulse 115; Resp 29; Temp 100.1; Pulse Ox 98% on 3 lpm NC; hb 16:19 BP 117 / 93; Pulse 104; Resp 21; Pulse Ox 96% 3 lpm ; Pain 0/10; hb 17:15 BP 108 / 82; Pulse 99; Resp 29; Pulse Ox 100% on 3 lpm NC; hb 18:16 BP 121 / 90; Pulse 104; Resp 18; Pulse Ox 98% 3 lpm ; hb 18:34 BP 111 / 83; Pulse 97; Resp 22; Pulse Ox 95% ; sv 13:16 Body Mass Index 23.75 (81.65 kg, 185.42 cm) hb MDM: 13:34 Patient medically screened. gs 16:30 Differential diagnosis: viral Infection, bacterial infection, sepsis, metastasis. Data gs reviewed: vital signs, nurses notes, lab test result(s), EKG, radiologic studies. Counseling: I had a detailed discussion with the patient and/or guardian regarding: the historical points, exam findings, and any diagnostic results supporting the discharge/admit diagnosis, the need to transfer to another facility. Response to treatment: the patient's symptoms have mildly improved after treatment. 11/30 13:43 Order name: Basic Metabolic Panel; Complete Time: 15:41 11/30 13:43 Order name: Blood Culture Adult (2) 11/30 13:43 Order name: CBC with Diff; Complete Time: 15:41 11/30 13:43 Order name: CPK; Complete Time: 15:41 11/30 13:43 Order name: Lactate; Complete Time: 15:41 11/30 13:43 Order name: LFT's; Complete Time: 15:41 11/30 13:43 Order name: Lipase; Complete Time: 15:41 11/30 13:43 Order name: Procalcitonin; Complete Time: 15:41 11/30 13:43 Order name: Protime (+inr); Complete Time: 15:41 11/30 13:43 Order name: Troponin (emerg Dept Use Only); Complete Time: 15:41 11/30 13:43 Order name: Urine Microscopic Only; Complete Time: 15:41 11/30 13:43 Order name: ABG; Complete Time: 15:41 11/30 15:17 Order name: Urine Dipstick--Ancillary (enter results); Complete Time: 15:41 11/30 13:43 Order name: Chest Single View XRAY; Complete Time: 17:27 11/30 13:43 Order name: Accucheck; Complete Time: 14:13 11/30 13:43 Order name: Cardiac monitoring; Complete Time: 14:13 11/30 13:43 Order name: EKG - Nurse/Tech; Complete Time: 14:13 11/30 13:43 Order name: IV Saline Lock - Large Bore; Complete Time: 14:13 11/30 14:12 Order name: Head Brain W/Wo Con; Complete Time: 16:49 EDMS 11/30 15:38 Order name: Manual Differential; Complete Time: 15:41 EDMS 11/30 15:59 Order name: CT Chest Wo Con; Complete Time: 17:27 11/30 13:43 Order name: Labs collected and sent; Complete Time: 14:13 11/30 13:43 Order name: O2 Per Protocol; Complete Time: 14:13 11/30 13:43 Order name: O2 Sat Monitoring; Complete Time: 14:13 11/30 13:43 Order name: Urine Dipstick-Ancillary (obtain specimen); Complete Time: 14:13 11/30 13:43 Order name: Misc. Order: temp; Complete Time: 14:13 Administered Medications: 14:13 Drug: NS 0.9% 1000 ml Route: IV; Rate: 1 bolus; Site: left antecubital; hb 14:14 Drug: Tylenol 650 mg Route: PO; hb 14:30 Drug: Rocephin - (cefTRIAXone) 1 grams Route: IVPB; Infused Over: 30 mins; Site: left hb antecubital; 15:56 CANCELLED (Duplicate Order): Keppra 1000 mg IV at 1000 bolus once gs 16:19 Drug: Cefepime 1 grams Route: IVPB; Rate: 200 ml/hr; Infused Over: 30 mins; Site: left hb antecubital; 16:19 Drug: Decadron - Dexamethasone 10 mg Route: IVP; Site: left antecubital; hb 17:03 Drug: Keppra 1500 mg Route: IV; Rate: 1 bolus; Site: left antecubital; hb Disposition: 11/30/18 16:47 Transfer ordered to [facility]. Diagnosis are Epilepsy and recurrent seizures, Secondary malignant neoplasm of brain. - Reason for transfer: Higher level of care. - Accepting physician is hanny. - Condition is Stable. - Problem is new. - Symptoms have improved. Critical care time excluding procedures: 16:30 Critical care time: Bedside Care: 20 minutes, Consultation: 10 minutes, Family gs Intervention: 10 minutes. Total time: 40 minutes Signatures: Dispatcher [employer] EDMS Ying Ross RN RN hb Starr, Gregory, MD MD Corrections: (The following items were deleted from the chart) 14:12 13:45 Head Brain W Cont+CT.RAD.BRZ ordered. EDMS EDMS 15:37 14:30 CBC Smear Scan ordered. EDMS EDMS 15:56 15:55 Keppra 1000 mg IV at 1000 bolus once ordered. [facility] 18:55 16:47 11/30/2018 16:47 Transfer ordered to [facility]. Diagnosis is hb Epilepsy and recurrent seizures; Secondary malignant neoplasm of brain. Reason for transfer: Higher level of care. Accepting physician is hanny. Condition is Stable. Problem is new. Symptoms have improved. gs
--- NOTE | 2018-11-30 17:20 | RAD REPORT ---
EXAM DESCRIPTION: CT - Thorax Wo Con - 11/30/2018 4:51 pm CLINICAL HISTORY: Lung cancer COMPARISON: November 13, 2018 pet scan TECHNIQUE: Computed axial tomography of the chest was obtained. Contrast was not requested. All CT scans are performed using dose optimization technique as appropriate and may include automated exposure control or mA/KV adjustment according to patient size. FINDINGS: The evaluation of mediastinum, milagros and vessels is limited secondary to lack of IV contras t administration. Development of mild ground-glass opacities within the left lower lobe Right lung mass, mediastinal lymphadenopathy and pleural masses again demonstrated IMPRESSION: Mild ground-glass opacities within left lower lobe have the appearance of a mild pneumon itis
--- NOTE | 2018-11-30 17:22 | RAD REPORT ---
EXAM DESCRIPTION: [place] Single View11/30/2018 2:22 pm CLINICAL HISTORY: Fever COMPARISON: November 13, 2018 pet scan FINDINGS: Right lung mass, mediastinal lymphadenopathy and right pleural effusion again demonstrated Mild haziness of the left base may indicate pneumonitis.
--- NOTE | 2018-12-01 10:01 | EKG ---
Test Date: 2018-11-30 Test Time: 13:17:28 Sausage Wrapper: [place] MEASUREMENT RESULTS: Intervals: Rate: 129 DE: 132 QRSD: 72 QT: 280 QTc: 410 [place]: P: 5 DE: 132 QRS: 28 T: 20 INTERPRETIVE STATEMENTS: Sinus tachycardia Nonspecific ST abnormality Abnormal ECG No previous ECG available for comparison Electronically Signed On 12-01-18 10:00:11 CDT by Santos Andujar
== END 2018-11-30 18:55 | disposition short-term general hospital (02) ==
LOC: ER 13:08
DX: C79.31 Secondary malignant neoplasm of brain (principal); Z85.89 Personal history of malignant neoplasm of other organs and systems
CPT/HCPCS: 93005; 87040 ×2; 85025; 80048; 36415; 82550; 87205; 85610; 80076; 83605; 84484; 83690; 84145; 71250; 71045; 82805; J1100; J1953; J0696; J0692; J7030 ×2; 81003; 81015

== ENCOUNTER 2018-12-26 17:36 | Inpatient (IN) | payer OTHER ==
--- OUTSIDE RECORDS SUMMARY | 2018-12-26 17:40 | XMS REPORT ---
:1965 [facility] [address] [place] [address] Care Team Providers Name Role Phone RENZO ISIDRO Unavailable Unavailable Problems This patient has no known problems. Allergies, Adverse Reactions, Alerts This patient has no known allergies or adverse reactions. Medications This patient has no known medications. Encounters Start End Encounter Admission Attending Care Care Encounter Date/Time Date/Time Type Type Clinicians Facility Department ID 2018-10-02 2018-09-30 Inpatient [facility] [id number] 10:10:00 00:06:00 Results Test Description Test Time Test Comments Text Results Atomic Results Result Comments BLOOD CULTURE 2018-12-06 02:00:00 Test Item Value Reference Range Comments CULTURE (BEAKER) (test mjjr=5357) No growth in 5 days BLOOD [id number] 02:00:00 Test Item Value Reference Range Comments CULTURE (BEAKER) (test sonp=6434) No growth in 5 days BASIC METABOLIC [id number] 07:07:00 Test Item Value Reference Range Comments SODIUM (BEAKER) (test 137 meq/L 136-145 fgvh=240) POTASSIUM (BEAKER) (test 4.2 meq/L 3.5-5.1 pxmd=340) CHLORIDE (BEAKER) (test 104 meq/L 98-107 spnu=704) CO2 (BEAKER) (test 26 meq/L 22-29 xjyw=310) BLOOD UREA NITROGEN 10 mg/dL 7-21 (BEAKER) (test sjji=126) CREATININE (BEAKER) (test 0.57 mg/dL 0.57-1.25 fbhf=053) GLUCOSE RANDOM (BEAKER) 142 mg/dL 70-105 (test pvvw=949) CALCIUM (BEAKER) (test 9.1 mg/dL 8.4-10.2 ovvb=665) EGFR (BEAKER) (test 148 mL/min/1.73 sq m ESTIMATED GFR IS NOT wdqj=6635) ACCURATE CREATININE CLEARANCE IN PREDICTING GLOMERULAR FILTRATION RATE. ESTIMATED GFR IS NOT APPLICABLE FOR DIALYSIS PATIENTS. VANCOMYCIN LEVEL, [id number] 06:51:00 Test Item Value Reference Range Comments VANCOMYCIN TROUGH (BEAKER) (test dzzb=828) 4.7 ug/mL 10.0-20.0 Draw 30 min prior to scheduled dose, HOLD if level > 20 mcg/mL, inform MD.CBC W/PLT COUNT & AUTO [id number] 05:15:00 Test Item Value Reference Range Comments WHITE BLOOD CELL COUNT (BEAKER) (test waqt=277) 35.1 K/ L 3.5-10.5 RED BLOOD CELL COUNT (BEAKER) (test wrid=801) 3.25 M/ L 4.63-6.08 HEMOGLOBIN (BEAKER) (test bldw=248) 9.1 GM/DL 13.7-17.5 HEMATOCRIT (BEAKER) (test edoa=243) 29.8 % 40.1-51.0 MEAN CORPUSCULAR VOLUME (BEAKER) (test lvdo=926) 91.7 fL 79.0-92.2 MEAN CORPUSCULAR HEMOGLOBIN (BEAKER) (test 28.0 pg 25.7-32.2 sxrc=903) MEAN CORPUSCULAR HEMOGLOBIN CONC (BEAKER) (test 30.5 GM/DL 32.3-36.5 qmew=523) RED CELL DISTRIBUTION WIDTH (BEAKER) (test 13.9 % 11.6-14.4 bbrm=363) PLATELET COUNT (BEAKER) (test pcbb=465) 518 K/CU MM 150-450 MEAN PLATELET VOLUME (BEAKER) (test kamz=424) 9.8 fL 9.4-12.4 NUCLEATED RED BLOOD CELLS (BEAKER) (test 0 /100 WBC 0-0 cory=190) NEUTROPHILS RELATIVE PERCENT (BEAKER) (test 87 % utvd=682) LYMPHOCYTES RELATIVE PERCENT (BEAKER) (test 6 % khxu=375) MONOCYTES RELATIVE PERCENT (BEAKER) (test 4 % adqz=151) EOSINOPHILS RELATIVE PERCENT (BEAKER) (test 0 % wqtt=357) BASOPHILS RELATIVE PERCENT (BEAKER) (test 0 % jmis=649) NEUTROPHILS ABSOLUTE COUNT (BEAKER) (test 30.59 K/ L 1.78-5.38 cvcu=771) LYMPHOCYTES ABSOLUTE COUNT (BEAKER) (test 2.14 K/ L 1.32-3.57 awcy=974) MONOCYTES ABSOLUTE COUNT (BEAKER) (test 1.38 K/ L 0.30-0.82 eutz=818) EOSINOPHILS ABSOLUTE COUNT (BEAKER) (test 0.02 K/ L 0.04-0.54 mrwd=924) BASOPHILS ABSOLUTE COUNT (BEAKER) (test 0.06 K/ L 0.01-0.08 bgue=246) IMMATURE GRANULOCYTES-RELATIVE PERCENT (BEAKER) 3 % 0-1 (test erqq=0321) POCT-GLUCOSE [id number] 21:41:00 Test Item Value Reference Range Comments POC-GLUCOSE METER (BEAKER) 243 mg/dL 70-110 TESTED AT [facility] [address] (test hshy=3968) [facility] [address] BASIC METABOLIC [id number] 06:17:00 Test Item Value Reference Range Comments SODIUM (BEAKER) (test 138 meq/L 136-145 ttop=025) POTASSIUM (BEAKER) (test 4.1 meq/L 3.5-5.1 iyil=261) CHLORIDE (BEAKER) (test 105 meq/L 98-107 coae=079) CO2 (BEAKER) (test 26 meq/L 22-29 bkoi=856) BLOOD UREA NITROGEN 11 mg/dL 7-21 (BEAKER) (test afgh=478) CREATININE (BEAKER) (test 0.58 mg/dL 0.57-1.25 cvtk=991) GLUCOSE RANDOM (BEAKER) 122 mg/dL 70-105 (test qart=490) CALCIUM (BEAKER) (test 8.8 mg/dL 8.4-10.2 cckl=763) EGFR (BEAKER) (test 145 mL/min/1.73 sq m ESTIMATED GFR IS NOT lbbo=8150) ACCURATE CREATININE CLEARANCE IN PREDICTING GLOMERULAR FILTRATION RATE. ESTIMATED GFR IS NOT APPLICABLE FOR DIALYSIS PATIENTS. CBC W/PLT COUNT & AUTO [id number] 05:35:00 Test Item Value Reference Range Comments WHITE BLOOD CELL COUNT (BEAKER) (test lqyj=298) 32.3 K/ L 3.5-10.5 RED BLOOD CELL COUNT (BEAKER) (test hvcm=929) 3.28 M/ L 4.63-6.08 HEMOGLOBIN (BEAKER) (test wyrk=580) 9.2 GM/DL 13.7-17.5 HEMATOCRIT (BEAKER) (test wwqz=063) 29.9 % 40.1-51.0 MEAN CORPUSCULAR VOLUME (BEAKER) (test ypdj=151) 91.2 fL 79.0-92.2 MEAN CORPUSCULAR HEMOGLOBIN (BEAKER) (test 28.0 pg 25.7-32.2 etfx=677) MEAN CORPUSCULAR HEMOGLOBIN CONC (BEAKER) (test 30.8 GM/DL 32.3-36.5 fbzb=538) RED CELL DISTRIBUTION WIDTH (BEAKER) (test 13.7 % 11.6-14.4 fvte=033) PLATELET COUNT (BEAKER) (test jabx=535) 506 K/CU MM 150-450 MEAN PLATELET VOLUME (BEAKER) (test qubi=877) 9.7 fL 9.4-12.4 NUCLEATED RED BLOOD CELLS (BEAKER) (test 0 /100 WBC 0-0 iidv=913) NEUTROPHILS RELATIVE PERCENT (BEAKER) (test 90 % okhf=111) LYMPHOCYTES RELATIVE PERCENT (BEAKER) (test 5 % ihgv=395) MONOCYTES RELATIVE PERCENT (BEAKER) (test 3 % tguu=998) EOSINOPHILS RELATIVE PERCENT (BEAKER) (test 0 % snjt=840) BASOPHILS RELATIVE PERCENT (BEAKER) (test 0 % wish=183) NEUTROPHILS ABSOLUTE COUNT (BEAKER) (test 29.05 K/ L 1.78-5.38 zusq=464) LYMPHOCYTES ABSOLUTE COUNT (BEAKER) (test 1.65 K/ L 1.32-3.57 vqkw=326) MONOCYTES ABSOLUTE COUNT (BEAKER) (test 0.93 K/ L 0.30-0.82 pbji=335) EOSINOPHILS ABSOLUTE COUNT (BEAKER) (test 0.01 K/ L 0.04-0.54 fknf=210) BASOPHILS ABSOLUTE COUNT (BEAKER) (test 0.05 K/ L 0.01-0.08 okve=088) IMMATURE GRANULOCYTES-RELATIVE PERCENT (BEAKER) 2 % 0-1 (test nfch=2585) POCT-GLUCOSE [id number] 21:13:00 Test Item Value Reference Range Comments POC-GLUCOSE METER (BEAKER) 167 mg/dL 70-110 TESTED AT [address] (test ggwu=4559) [facility] [address] RAD, SHOULDER, COMPLETE (MIN 2 VIEWS), [id number] 14:32:00Reason for exam:-& gt;concern for rotator cuff injuryFINAL REPORT RAD, SHOULDER, COMPLETE (MIN 2 VIEWS), LEFT INDICATION: concern for rotator cuff injury COMPARISON: None TECHNIQUE: AP, lateral and oblique radiographs of the left shoulder FINDINGS/IMPRESSION:Increased distance and sclerosis at the acromioclavicular joint, which may indicate prior infection and/or prior sprain. No elevation of the clavicle to suggest AC separation. Minimal glenohumeral joint space narrowing. Signed: Mandi Mahoney MDReport Verified Date/Time: 12/02/2018 14:32:19 Reading Location: [facility] Radiology Reading Room Electronically signed by: MANDI MAHONEY MD on 2018 02:32 PMPOCT-GLUCOSE [id number] 12:29:00 Test Item Value Reference Range Comments POC-GLUCOSE METER (BEAKER) 178 mg/dL 70-110 TESTED AT [address] (test almo=4912) [place] [id number] POCT-GLUCOSE [id number] 12:29:00 Test Item Value Reference Range Comments POC-GLUCOSE METER (BEAKER) 185 mg/dL 70-110 TESTED AT [address] (test hwuj=8214) [place] [address] VANCOMYCIN LEVEL, [id number] 12:22:00 Test Item Value Reference Range Comments VANCOMYCIN TROUGH (BEAKER) (test gsmi=149) 7.4 ug/mL 10.0-20.0 Draw 30 min prior to scheduled dose, HOLD if level > 20 mcg/mL, inform .CBC W/PLT COUNT & AUTO [id number] 10:34:00 Test Item Value Reference Range Comments WHITE BLOOD CELL COUNT (BEAKER) (test gzng=284) 33.1 K/ L 3.5-10.5 RED BLOOD CELL COUNT (BEAKER) (test gbis=879) 3.32 M/ L 4.63-6.08 HEMOGLOBIN (BEAKER) (test ncdb=500) 9.2 GM/DL 13.7-17.5 HEMATOCRIT (BEAKER) (test gyiz=960) 30.2 % 40.1-51.0 MEAN CORPUSCULAR VOLUME (BEAKER) (test gsri=661) 91.0 fL 79.0-92.2 MEAN CORPUSCULAR HEMOGLOBIN (BEAKER) (test 27.7 pg 25.7-32.2 bcji=031) MEAN CORPUSCULAR HEMOGLOBIN CONC (BEAKER) (test 30.5 GM/DL 32.3-36.5 gdmd=807) RED CELL DISTRIBUTION WIDTH (BEAKER) (test 13.7 % 11.6-14.4 isvu=942) PLATELET COUNT (BEAKER) (test takp=932) 525 K/CU MM 150-450 MEAN PLATELET VOLUME (BEAKER) (test olhq=018) 9.5 fL 9.4-12.4 NUCLEATED RED BLOOD CELLS (BEAKER) (test 0 /100 WBC 0-0 ljxd=737) (CELLAVISION MANUAL DIFF)2018-12-02 10:34:00 Test Item Value Reference Range Comments NEUTROPHILS - REL (CELLAVISION)(BEAKER) (test 95 % pazx=2807) LYMPHOCYTES - REL (CELLAVISION)(BEAKER) (test 5 % knps=8531) NEUTROPHILS - ABS (CELLAVISION)(BEAKER) (test 31.45 K/ul 1.78-5.38 pulv=5125) LYMPHOCYTES - ABS (CELLAVISION)(BEAKER) (test 1.66 K/ul 1.32-3.57 gusu=9089) TOTAL COUNTED (BEAKER) (test sjwd=0438) 100 WBC MORPHOLOGY (BEAKER) (test ajds=751) Normal LARGE PLT(BEAKER) (test reqd=4741) Present ANISOCYTOSIS (BEAKER) (test erql=384) 1+ few MICROCYTES (BEAKER) (test ktea=623) 1+ few POIKILOCYTES (BEAKER) (test fmjn=387) 1+ few SPHEROCYTES (BEAKER) (test gdqs=934) 1+ few ELLIPTOCYTES (BEAKER) (test tmoz=647) 1+ few OVALOCYTES (BEAKER) (test xtsu=601) 1+ few ARTIFACT (CELLAVISION)(BEAKER) (test ullz=6454) Present PLATELET CONCENTRATION (CELLAVISION)(BEAKER) Increased (test lrvw=2722) Received comment: User comments: Slide comments:URINALYSIS W/ REFLEX URINE [id number] 09:54:00 Test Item Value Reference Range Comments COLOR (BEAKER) (test cysd=295) Yellow CLARITY (BEAKER) (test wcls=205) Clear SPECIFIC GRAVITY UA (BEAKER) (test ycmt=688) 1.016 1.001-1.035 PH UA (BEAKER) (test lwtr=259) 6.5 5.0-8.0 PROTEIN UA (BEAKER) (test foic=671) Negative Negative GLUCOSE UA (BEAKER) (test kdwe=576) Negative Negative KETONES UA (BEAKER) (test pmwt=530) Negative Negative BILIRUBIN UA (BEAKER) (test vmdi=805) Negative Negative BLOOD UA (BEAKER) (test mqry=626) Negative Negative NITRITE UA (BEAKER) (test meyn=871) Negative Negative LEUKOCYTE ESTERASE UA (BEAKER) (test dnmt=096) Negative Negative UROBILINOGEN UA (BEAKER) (test xmuc=391) 2.0 mg/dL 0.2-1.0 RBC UA (BEAKER) (test xfrs=782) 0 /HPF WBC UA (BEAKER) (test ukwk=378) 1 /HPF MUCUS (BEAKER) (test hjqe=5500) Occasional SOURCE(BEAKER) (test wrnb=3693) MR, BRAIN, [id number] 09:26:00FINAL REPORT MR, BRAIN , WITH \T\ WITHOUT CONTRAST INDICATION: Neoplasm: head,metastatic TECHNIQUE: Multiplanar, multisequence MR imaging of the brain was obtained before and after uneventful administration of gadolinium contrast. COMPARISON: None FINDINGS:There are innumerable partially hemorrhagic metastases throughout the brain parenchyma involving all lobes and both cerebellar hemispheres as well as the vermis. Contrast enhancement is relatively heterogeneous and predominantly peripheral in location. The brainstem, cerebral and cerebellar peduncles are spared. Larger lesions are associated with vasogenic edema. Mild mass effect is present without midline shift or effacement of the ventricular CSF spaces. No recent infarct or extra-axial hemorrhage is detected. Referencelesions are as follows:*Left occipital lobe 24 x 28 x 31 mm;*Right superior frontal gyrus posteriorly 17 x 15 x 11 mm; right cerebellar hemisphere 13 x 11 x 12 mm. No abnormal signal characteristics are detected within the calvarium or skull base. There are no cerebral erosive changes. No layering fluid is present in the paranasal sinuses. Orbital contents are unremarkable. IMPRESSION: Extensive intracranial metastatic disease with innumerable heterogeneously enhancing and partially hemorrhagic foci as described. Signed: JR Gokul , Silvia Laura Verified Date/Time: 12/02/2018 09:26:37 Reading Location: [address] Neuro Reading Room BASIC METABOLIC [id number] 05:00:00 Test Item Value Reference Range Comments SODIUM (BEAKER) (test 138 meq/L 136-145 xeek=579) POTASSIUM (BEAKER) (test 4.0 meq/L 3.5-5.1 jouo=677) CHLORIDE (BEAKER) (test 105 meq/L 98-107 nudd=480) CO2 (BEAKER) (test 24 meq/L 22-29 xeoq=502) BLOOD UREA NITROGEN 12 mg/dL 7-21 (BEAKER) (test czfd=665) CREATININE (BEAKER) (test 0.60 mg/dL 0.57-1.25 gfej=120) GLUCOSE RANDOM (BEAKER) 137 mg/dL 70-105 (test qlfg=735) CALCIUM (BEAKER) (test 8.6 mg/dL 8.4-10.2 kwtf=047) EGFR (BEAKER) (test 140 mL/min/1.73 sq m ESTIMATED GFR IS NOT tmko=5227) ACCURATE CREATININE CLEARANCE IN PREDICTING GLOMERULAR FILTRATION RATE. ESTIMATED GFR IS NOT APPLICABLE FOR DIALYSIS PATIENTS. POCT-GLUCOSE [id number] 21:48:00 Test Item Value Reference Range Comments POC-GLUCOSE METER (BEAKER) 175 mg/dL 70-110 TESTED AT [facility] [address] (test lfhl=2140) [facility] [address] POCT-GLUCOSE [id number] 17:34:00 Test Item Value Reference Range Comments POC-GLUCOSE METER (BEAKER) 130 mg/dL 70-110 TESTED AT [facility] [address] (test mgbk=9091) [facility] [address] CBC W/PLT COUNT & AUTO [id number] 11:37:00 Test Item Value Reference Range Comments WHITE BLOOD CELL COUNT (BEAKER) (test vmcw=520) 28.7 K/ L 3.5-10.5 RED BLOOD CELL COUNT (BEAKER) (test ymbo=802) 3.24 M/ L 4.63-6.08 HEMOGLOBIN (BEAKER) (test jitk=016) 9.1 GM/DL 13.7-17.5 HEMATOCRIT (BEAKER) (test csys=789) 29.8 % 40.1-51.0 MEAN CORPUSCULAR VOLUME (BEAKER) (test eswe=780) 92.0 fL 79.0-92.2 MEAN CORPUSCULAR HEMOGLOBIN (BEAKER) (test 28.1 pg 25.7-32.2 clga=830) MEAN CORPUSCULAR HEMOGLOBIN CONC (BEAKER) (test 30.5 GM/DL 32.3-36.5 drgp=598) RED CELL DISTRIBUTION WIDTH (BEAKER) (test 13.7 % 11.6-14.4 lphb=784) PLATELET COUNT (BEAKER) (test kofs=476) 443 K/CU MM 150-450 MEAN PLATELET VOLUME (BEAKER) (test hwrl=916) 9.5 fL 9.4-12.4 NUCLEATED RED BLOOD CELLS (BEAKER) (test 0 /100 WBC 0-0 schw=060) (CELLAVISION MANUAL DIFF)2018-12-01 11:37:00 Test Item Value Reference Range Comments NEUTROPHILS - REL (CELLAVISION)(BEAKER) (test 83 % exiu=2726) LYMPHOCYTES - REL (CELLAVISION)(BEAKER) (test 13 % ublk=3081) MONOCYTES - REL (CELLAVISION)(BEAKER) (test 3 % zemt=6024) BANDS - REL (CELLAVISION)(BEAKER) (test 1 % 0-10 urjy=1528) NEUTROPHILS - ABS (CELLAVISION)(BEAKER) (test 23.82 K/ul 1.78-5.38 ytku=7939) LYMPHOCYTES - ABS (CELLAVISION)(BEAKER) (test 3.73 K/ul 1.32-3.57 whte=3922) MONOCYTES - ABS (CELLAVISION)(BEAKER) (test 0.86 K/uL 0.30-0.82 kaxa=9010) BANDS - ABS (CELLAVISION)(BEAKER) (test 0.29 K/uL 0.00-0.80 yjte=1516) TOTAL COUNTED (BEAKER) (test tddm=1600) 100 WBC MORPHOLOGY (BEAKER) (test nivv=277) Normal PLT MORPHOLOGY (BEAKER) (test nqxc=023) Normal ANISOCYTOSIS (BEAKER) (test xngf=621) 1+ few MICROCYTES (BEAKER) (test sxoy=367) 1+ few ARTIFACT (CELLAVISION)(BEAKER) (test juyu=3453) Present PLATELET CONCENTRATION (CELLAVISION)(BEAKER) Adequate (test uaye=5722) Received comment: User comments: Slide comments:RAD, CHEST, 1 VIEW, NON [id number] 09:38:00Reason for exam:->PneumoniaShould this be performed at the bedside?->YesFINAL REPORT INDICATION: Pneumonia COMPARISON: None TECHNIQUE: Single frontalview of the chest. FINDINGS: Lungs and pleura: Platelike atelectasis within the right midlung. Obscuration of the right hemidiaphragm at the CP angle, raising the possibility of a tiny right effusion. Heart and mediastinum: Normal heart size. Unremarkable mediastinal contours.Osseous structures: Noacute abnormality.Other: None. IMPRESSION: Platelike atelectasis within the right midlung. Trace effusion on the right. Signed: Mandi Mahoney MDRmike Verified Date/Time: 12/01/2018 09:38:12 Reading Location: [facility] Radiology Reading Room POCT-GLUCOSE [id number] 07:57:00 Test Item Value Reference Range Comments POC-GLUCOSE METER (BEAKER) 114 mg/dL 70-110 TESTED AT [facility] [address] (test qjsg=0861) [facility] [address] BASIC METABOLIC [id number] 06:35:00 Test Item Value Reference Range Comments SODIUM (BEAKER) (test 138 meq/L 136-145 idpd=705) POTASSIUM (BEAKER) (test 4.3 meq/L 3.5-5.1 siwb=913) CHLORIDE (BEAKER) (test 107 meq/L 98-107 buhy=997) CO2 (BEAKER) (test 25 meq/L 22-29 giqk=829) BLOOD UREA NITROGEN 13 mg/dL 7-21 (BEAKER) (test ptvc=271) CREATININE (BEAKER) (test 0.59 mg/dL 0.57-1.25 lyjc=374) GLUCOSE RANDOM (BEAKER) 137 mg/dL 70-105 (test eehm=065) CALCIUM (BEAKER) (test 8.5 mg/dL 8.4-10.2 kusy=688) EGFR (BEAKER) (test 143 mL/min/1.73 sq m ESTIMATED GFR IS NOT wqrn=3589) ACCURATE CREATININE CLEARANCE IN PREDICTING GLOMERULAR FILTRATION RATE. ESTIMATED GFR IS NOT APPLICABLE FOR DIALYSIS PATIENTS. COMPREHENSIVE METABOLIC [id number] 01:01:00 Test Item Value Reference Range Comments TOTAL PROTEIN (BEAKER) 7.5 gm/dL 6.0-8.3 (test qxun=324) ALBUMIN (BEAKER) (test 2.7 g/dL 3.5-5.0 bdqw=9470) ALKALINE PHOSPHATASE 129 U/L 40-150 (BEAKER) (test wxam=635) BILIRUBIN TOTAL (BEAKER) 0.8 mg/dL 0.2-1.2 (test qyga=683) SODIUM (BEAKER) (test 139 meq/L 136-145 xoso=897) POTASSIUM (BEAKER) (test 4.3 meq/L 3.5-5.1 davj=696) CHLORIDE (BEAKER) (test 104 meq/L 98-107 fejo=167) CO2 (BEAKER) (test 27 meq/L 22-29 uuug=575) BLOOD UREA NITROGEN 12 mg/dL 7-21 (BEAKER) (test iodm=974) CREATININE (BEAKER) (test 0.68 mg/dL 0.57-1.25 dkny=165) GLUCOSE RANDOM (BEAKER) 138 mg/dL 70-105 (test hmel=520) CALCIUM (BEAKER) (test 9.2 mg/dL 8.4-10.2 wkcn=318) AST (SGOT) (BEAKER) (test 15 U/L 5-34 dxbq=043) ALT (SGPT) (BEAKER) (test 19 U/L 6-55 ksad=540) EGFR (BEAKER) (test 121 mL/min/1.73 sq ESTIMATED GFR IS NOT gpza=9371) m ACCURATE CREATININE CLEARANCE IN PREDICTING GLOMERULAR FILTRATION RATE. ESTIMATED GFR IS NOT APPLICABLE FOR DIALYSIS PATIENTS.
--- OUTSIDE RECORDS SUMMARY | 2018-12-26 17:40 | XMS REPORT | Continuity of Care Document ---
:1965 Author Organization [email or web address] Care Team Providers Name Role Phone [email or web address] Unavailable Unavailable Problems Problem Status Onset Classification Date Comments Source Date Reported SPONTANEOUS Active [facility] RIGHT 9 Medical HEMOTHORAX Center LARGE PLEURAL Active [facility] EFFUSION 9 Medical Center Pleural 10/08/2018 [facility] effusion, not Medical elsewhere Center classified PLEURAL Active [facility] EFFUSION, NOT Medical ELSEWHERE Center CLASSIFI Medications Medication Details Route Status Patient Ordering Order Source Instructions Provider Date naproxen 500 mg 500 mg=1 tab, Active [facility] oral tablet PO, BID, PRN 2019 Medical Pain, X 10 day, Center # 20 tab, 0 Refill(s), Pharmacy: [place] [id number] Acetaminophen 1,000 mg=2 tab, Active [place] 500 MG Oral PO, Q6H, 0 2018 Medical Tablet Refill(s) [facility] Alprazolam 0.5 0.5 mg, 1 tab, No Longer [facility] MG Oral Tablet Route: PO, Drug Active 2018 Medical form: TAB, TID, Center Dosing Weight 90.455, kg, PRN as needed for anxiety, Start date: 10/02/18 13:43:00 CDT, Duration: 30 day, Stop date: 11/01/18 13:42:00 CDTNotes: With food or milk (Same as: Xanax) Naproxen 500 mg, 1 tab, No Longer [facility] Route: PO, Drug Active 2018 Medical form: TAB, Center Q12H, kg, Start date: 10/02/18 9:00:00 CDT, Duration: 30 day, Stop date: 10/31/18 21:00:00 CDTNotes: (Same as: Naprosyn) Take with food. gabapentin 300 mg, 1 cap, No Longer [facility] Route: PO, Drug Active 2018 Medical form: CAP, Q8H, Center kg, Start date: 10/02/18 8:00:00 CDT, Duration: 30 day, Stop date: 11/01/18 0:00:00 CDTNotes: (Same as: Neurontin) Iohexol 100 mL, Route: Inactive [facility] IVP, Drug Form: 2019 Medical SOLN, Dosing Center Weight 90.455, kg, ONCALL, STAT, Start date: 10/01/18 18:50:00 CDT, Duration: 1 doses or times, Dose=2.2ml/kg, Max [id number] -- "To be infused by Radiology Staff ONLY" Albuterol 0.833 3 mL, Route: No Longer [facility] MG/ML / NEB, Drug Form: Active 2019 Medical Ipratropium SOLN, Dosing Center [place] 0.167 Weight 90.455, MG/ML Inhalant kg, RQID, STAT, Solution Start date: [DuoNeb] 10/01/18 16:47:00 CDT, Duration: 30 day, Stop date: 10/31/18 15:00:00 CDTNotes: (Same as: Duoneb) Fentanyl 100 microgram, Inactive [facility] Route: IV, 2019 Medical ONCE, Dosing Center Weight 90.455, kg, Start date: 10/01/18 12:32:00 CDT, Stop date: 10/01/18 12:32:00 CDT Versed 4 mg, Route: Inactive [facility] IVP, ONCE, 2019 Medical Dosing Weight Center 90.455, kg, Start date: 10/01/18 12:32:00 CDT, Stop date: 10/01/18 12:32:00 CDT Lovenox 40 mg, 0.4 mL, No Longer [facility] Route: SUB-Q, Active 2019 Medical Drug form: INJ, Center [id number], Dosing Weight 90.455, kg, Start date: 09/30/18 17:00:00 CDT, Duration: 30 day, Stop date: 10/29/18 12:00:00 CDTNotes: (Same as: Lovenox) Albuterol 0.833 3 ml, Route: No Longer [facility] MG/ML / NEB, Drug Form: Active 2019 Medical Ipratropium SOLN, Dosing Center [place] 0.167 Weight 90.455, MG/ML Inhalant kg, PRN, PRN Solution Respiratory [DuoNeb] Pathway, Start date: 09/30/18 16:16:00 CDT, Duration: 30 day, Stop date: 10/30/18 16:15:00 CDTNotes: (Same as: Duoneb) remove patch 1 patch, Route: No Longer [facility] TOP, Daily, Active 2018 Medical Drug form: [facility] ERFILM, Start date: 09/30/18 13:00:00 CDT, Duration: 30 day, Stop date: 10/29/18 13:00:00 CDTNotes: Remove patch 12 hours after application each day. celecoxib 200 mg, 1 cap, No Longer [place] Route: PO, Drug Active 2019 Medical form: CAP, Center Q12H, kg, For patients LESS than 75 years old. Hold in all patients if CrCl Notes: NSAID. Please check indication. Not for seizure. (Same As: CeleBREX) Acetaminophen 1,000 mg, 2 No Longer [place] tab, Route: PO, Active 2019 Medical Drug form: TAB, Center Q6H, kg, Start date: 09/30/18 6:00:00 CDT, Duration: 30 day, Stop date: 10/30/18 0:00:00 CDTNotes: Max acetaminophen 4000 mg/day (4 gm/day). (Same as: Tylenol Extra Strength) Iohexol 75 mL, Route: Inactive [place] IVP, Drug Form: 2019 Medical SOLN, , Center ONCALL, STAT, Start date: 09/30/18 1:17:00 CDT, Duration: 1 doses or times, Dose=2.2ml/kg, Max [id number] -- "To be infused by Radiology Staff ONLY" Lidocaine 1 patch, Route: No Longer [place] Hydrochloride TOP, Q24H, Drug Active 2019 Medical 0.05 MG/MG form: FILM, Center Transdermal Start date: Patch 09/30/18 [Lidoderm] 1:00:00 CDT, Duration: 30 day, Stop date: 10/29/18 1:00:00 CDTNotes: . (Same as: Lidoderm) "Remove old patch before application of new patch" Enoxaparin 30 mg, 0.3 mL, Inactive [facility] Route: SUB-Q, 2019 Medical Drug form: INJ, Center [id number], , Start date: 09/30/18 1:00:00 CDT, Duration: 30 day, Stop date: 10/29/18 13:00:00 CDTNotes: (Same as: Lovenox) pregabalin 100 mg, 1 cap, No Longer [facility] Route: PO, Drug Active 2018 Medical form: CAP, Q8H, [facility], Priority: NOW, Start date: 09/30/18 0:01:00 CDT, Duration: 48 hr, Stop date: 10/02/18 0:00:00 CDTNotes: (Same as: Lyrica) Tramadol 100 mg, 2 tab, No Longer [facility] Route: PO, Drug Active 2018 Medical form: TAB, Q6H, [facility], Priority: NOW, Start date: 09/30/18 0:01:00 CDT, Duration: 30 day, Stop date: 10/30/18 0:00:00 CDTNotes: Not to exceed 400mg/day. (Same As: Ultram) Oxycodone 5 mg, 1 tab, No Longer [facility] Hydrochloride 5 Route: PO, Drug Active 2018 Medical MG Oral Tablet form: TAB, Q4H, [facility], PRN Pain Score 4-6, Start date: 09/30/18 0:01:00 CDT, Duration: 30 day, Stop date: 10/30/18 0:00:00 CDTNotes: (Same as: Roxicodone) Ketorolac 30 mg, Route: Inactive [facility] IVP, ONCE, , 2019 Medical Start date: [facility] 09/30/18 0:01:00 CDT, Stop date: 09/30/18 0:01:00 CDT Allergies, Adverse Reactions, Alerts Substance Category Reaction Severity Reaction Status Date Comments Source type Reported No Known Assertion Drug [facility] Medication allergy Medical Allergies Center Immunizations No Data Provided for This Section Results Order Name Results Value Reference Date Interpretation Comments Source Range HEMATOLOGY Hct 35.9 42.0 - 10/03 [facility] 54.0 /2019 Medical Center HEMATOLOGY Hgb 11.9 14.0 - 10/03 [facility] 18.0 /2019 [facility] HEMATOLOGY WBC 12.5 3.7 - 10.4 10/02 [facility] HEMATOLOGY MCHC 33.6 32.0 - 10/02 [place] 36.0 [facility] HEMATOLOGY MCH 31.0 27.0 - 10/02 [place] 31.0 [facility] HEMATOLOGY Hgb 11.6 14.0 - 10/02 [place] 18.0 [facility] HEMATOLOGY RBC 3.76 4.70 - 10/02 [place] 6.10 [facility] HEMATOLOGY MCV 92.1 80.0 - 10/02 [place] 94.0 2019 [facility] HEMATOLOGY Hct 34.6 42.0 - 10/02 [place] 54.0 [facility] HEMATOLOGY Platelet 359 133 - 450 10/02 [facility] HEMATOLOGY RDW 13.1 11.5 - 10/02 [place] 14.5 [facility] HEMATOLOGY MPV 8.2 7.4 - 10.4 10/02 [facility] HEMATOLOGY Eosinophils 1.0 0.0 - 0.5 10/02 [facility] HEMATOLOGY Neutrophils 8.9 1.5 - 8.1 10/02 [facility] HEMATOLOGY Basophils 0.6 0.0 - 1.0 10/02 [facility] HEMATOLOGY Lymphocytes 15.1 20.0 - 10/02 [facility] 40.0 [facility] HEMATOLOGY Segs 71.0 45.0 - 10/02 [place] 75.0 [facility] HEMATOLOGY Monocytes 5.6 2.0 - 12.0 10/02 /2018 [facility] HEMATOLOGY Basophils # 0.1 0.0 - 0.2 10/02 [facility] HEMATOLOGY Monocytes # 0.7 0.0 - 0.8 10/02 /2018 [facility] HEMATOLOGY Lymphocytes 1.9 1.0 - 5.5 10/02 [facility] /2018 [facility] HEMATOLOGY Eosinophils 7.7 0.0 - 4.0 10/02 [facility]2018 [facility] HEMATOLOGY Segs 77.8 45.0 - 10/01 [place] 75.0 2019 [facility] HEMATOLOGY Lymphocytes 13.6 20.0 - 10/01 [place] 40.0 /2019 [facility] HEMATOLOGY Lymphocytes 2.6 1.0 - 5.5 10/01 [facility] /2019 [facility] HEMATOLOGY Basophils 0.4 0.0 - 1.0 10/01 [facility] HEMATOLOGY Eosinophils 2.3 0.0 - 4.0 10/01 [facility] HEMATOLOGY Basophils # 0.1 0.0 - 0.2 10/01 [facility] HEMATOLOGY Eosinophils 0.4 0.0 - 0.5 10/01 [place] # /2018 [facility] HEMATOLOGY Monocytes 5.9 2.0 - 12.0 10/01 [facility] HEMATOLOGY Neutrophils 15.0 1.5 - 8.1 10/01 [place] # /2019 [facility] HEMATOLOGY Monocytes # 1.1 0.0 - 0.8 10/01 [facility] HEMATOLOGY Hct 38.4 42.0 - 10/01 [place] 54.0 [facility] HEMATOLOGY MPV 8.6 7.4 - 10.4 10/01 [facility] HEMATOLOGY Hgb 12.8 14.0 - 10/01 [place] 18.0 [facility] HEMATOLOGY Platelet 443 133 - 450 10/01 [facility] HEMATOLOGY RDW 13.2 11.5 - 10/01 [place] 14.5 [facility] HEMATOLOGY RBC 4.15 4.70 - 10/01 [place] 6.10 [facility] HEMATOLOGY MCHC 33.4 32.0 - 10/01 [place] 36.0 2019 [facility] HEMATOLOGY MCH 30.9 27.0 - 10/01 [place] 31.0 [facility] HEMATOLOGY MCV 92.5 80.0 - 10/01 [place] 94.0 [facility] HEMATOLOGY WBC 19.2 3.7 - 10.4 10/01 [facility] [place] [address] 09/30 [facility] BODY FLUIDS Nucleated 775 09/30 [facility] Cells BF /2018 [facility] BODY FLUIDS Lymph BF 12 09/30 [facility] BODY FLUIDS Neutrophils 86 09/30 [place] BF [facility] BODY FLUIDS Clarity BF Marked Clear 09/30 [place] *ABN* /2018 [facility] (09/30/18 5:48 AM) Center BODY FLUIDS CellCnt BF Pleural 09/30 [place] Type (09/30/18 5:48 AM) [facility] BODY FLUIDS Color BF Red Colorless 09/30 [place] *ABN* /2018 Medical (09/30/18 5:48 AM) Center BODY FLUIDS Eos BF 1 09/30 [facility] BODY FLUIDS Macrophage 1 09/30 [facility] BF [facility] BODY FLUIDS Supernat BF Red Colorless 09/30 [facility] *ABN* [facility] (09/30/18 5:48 AM) [facility] BODY FLUIDS Alb BF Type Pleural 09/30 [facility] *NA* [facility] (09/30/18 5:48 AM) [facility] BODY FLUIDS Albumin BF 2.1 09/30 [facility] BODY FLUIDS Prot BF Type Pleural 09/30 [facility] *NA* [facility] (09/30/18 5:48 AM) [facility] BODY FLUIDS Protein BF 4.9 09/30 [facility] BODY FLUIDS pH BF 8.00 09/30 [facility] BODY FLUIDS pH BF Type Pleural 09/30 [facility] (09/30/18 5:48 AM) [facility] BODY FLUIDS LDH BF 2891 09/30 [facility] BODY FLUIDS LDH BF Type Pleural 09/30 [facility] (09/30/18 5:48 AM) [facility] BODY FLUIDS Glucose BF 121 09/30 [facility] BODY FLUIDS Gluc BF Type Pleural 09/30 [facility] *NA* [facility] (09/30/18 5:48 AM) [facility] Gram Stain Gram Stain 09/30 [facility] Report Medical By: [facility] Culture: No Growth 09/30 [facility]/ [facility] Fluid/Tissue CHEM PANEL Total 7.6 6.4 - 8.4 09/30 [facility] CHEM PANEL LDH 433 98 - 192 09/30 [place] [facility] CHEM PANEL eGFR 99 09/30 Result Comment: [...] PANEL Potassium 4.7 3.5 - 5.1 09/30 [facility] Lvl /2018 [facility] CHEM PANEL Chloride Lvl 105 95 - 109 09/[address] CHEM PANEL CO2 24 24 - 32 09/[address] CHEM PANEL Calcium Lvl 9.0 8.5 - 10.5 09/[address] CHEM PANEL Glucose Lvl 174 70 - 99 09/[address] CHEM PANEL AGAP 15.7 10.0 - 09/30 [facility] 20.0 [facility] CHEM PANEL BUN 16 7 - 22 09/[address] CHEM PANEL Creatinine 0.84 0.50 - 09/30 [facility] Lvl 1.40 [facility] CHEM PANEL Sodium Lvl 140 135 - 145 09/30 [facility]2018 [facility] HEMATOLOGY MCHC 33.6 32.0 - 09/30 [facility] 36.0 [facility] HEMATOLOGY MCH 31.2 27.0 - 09/30 [facility] 31.0 [facility] HEMATOLOGY WBC 18.3 3.7 - 10.4 09/30 [facility]2018 [facility] HEMATOLOGY MCV 92.8 80.0 - 09/30 [facility] 94.0 [facility] HEMATOLOGY RBC 4.31 4.70 - 09/30 [facility] 6.10 [facility] HEMATOLOGY MPV 8.5 7.4 - 10.4 09/[address] HEMATOLOGY Platelet 363 133 - 450 09/[address] HEMATOLOGY RDW 13.1 11.5 - 09/30 [facility] 14.5 [facility] Pathology Reports No Data Provided for This Section Diagnostic Reports Report Value Date Source Chest 1view DX EXAM: XR CHEST 1 VIEW 10/03/2018 [facility] Medical DATE: 10/03/2018 0035 hours Center [...] DX EXAM: XR CHEST 1 VIEW 10/02/2018 [facility] DATE: 10/02/2018 4:15 PM CDT Center INDICATION: - 4H post CT removal COMPARISON: 10/02/2018 TECHNIQUE: AP chest FINDINGS/IMPRESSION: Compared to the prior examination there remains a tiny right apical pneumothorax. There is bilateral pulmonary opacities compatible with pneumonia or pulmonary edema. Chest 1view DX EXAM: XR CHEST 1 VIEW 10/02/2018 [facility] DATE: 10/02/2018 0358 hours. Center INDICATION: Cough. [...] Pulmonary EXAM: CTA CHEST WITH CONTRAST 10/01/2018 [facility] Embolism CTA DATE: 10/01/2018 17:56 CDT Center [...] DX EXAM: XR CHEST 1 VIEW 10/01/2018 [facility] DATE: 10/01/2018 16:45 [facility] Center INDICATION: - shortness of breath s/p [...] DX EXAM: XR CHEST 1 VIEW 10/01/2018 [facility] DATE: 10/01/2018 10:58 T Center INDICATION: - [...] 1view DX EXAM: Chest 1view DX 09/30/2018 [facility] DATE: 09/30/2018 3:20 CDT Center INDICATION: - [...] CT EXAM: CT CHEST WITH CONTRAST 09/30/2018 [facility] DATE: 09/30/2018 0115 hours Center INDICATION: - [...] DX EXAM: XR CHEST 1 VIEW 09/29/2018 [facility] Medical DATE: 09/29/2018 at 2306 hours Center INDICATION: - SOB, after chest tube placement ADDITIONAL INFORMATION: 'tx from [facility] for spontaneous RIGHT sided hemothorax. chest [...] Source Temperature Oral (F) 98.6 F 10/07/2018 [facility] Respitory Rate 18 10/07/2018 [facility] Respitory Rate 18 10/06/2018 [facility] Systolic (mm Hg) 124 10/06/2018 [facility] Diastolic (mm Hg) 86 10/06/2018 [facility] Heart Rate 101 10/06/2018 [facility] Temperature Oral (F) 98.2 F 10/06/2018 [facility] Respitory Rate 17 10/06/2018 [facility] Systolic (mm Hg) 130 10/06/2018 [facility] Diastolic (mm Hg) 88 10/06/2018 [facility] Heart Rate 99 10/06/2018 [facility] Temperature Oral (F) 99.1 F 10/06/2018 [facility] Heart Rate 98 10/06/2018 [facility] Systolic (mm Hg) 152 10/06/2018 [facility] Diastolic (mm Hg) 78 10/06/2018 [facility] Height 185.42 cm 09/30/2018 [facility] Weight 90.455 09/30/2018 [facility] BMI Calculated 26.31 09/30/2018 [facility] Encounters Location Location Encounter Encounter Reason Attending ADM DC Status Source Details Type Number For Provider Date Date Visit [facility] [id number] [facility] Procedures No Data Provided for This Section Assessment and Plan Assessment and Plan Date Source Extracted from:Title: Pulmonology Initital Consult Note 10/07/2018 [facility] Author: Abbey Meyers MD Date: 10/01/18 53 [...] Ayala. Abbey Meyers MD PGY-2, Internal Medicine [facility] Pulmonary/Critical Care Attending Note I have seen [...] Will proceed with diagnostic bronchoscopy with interventional job coaching. Extracted from:Title: History and Physical Author: Yaya [...] History Date Source Social History TypeResponse 09/30/2018 [facility] Smoking Status Never smoker; Exposure to Tobacco Smoke None; Cigarette Smoking Last 365 Days No; Reg Smoking Cessation Counseling No entered on: 09/30/18 Family History No Data Provided for This Section Advance Directives No Data Provided for This Section Functional Status No Data Provided for This Section
[2018-12-26 17:56] LABS: Arterial Blood Carboxyhemoglob 2.8 % (0-1.5); Blood Gas Oxyhemoglobin 83.3 % (94-97); Blood O2 Saturation 86.6 % (92-98.5)
[2018-12-26] MEDS ORDERED: NA CHLORIDE 0.9% 1,000 ML ONE ×2 (17:56→18:18)
[2018-12-26] MEDS ORDERED: ACETAMINOPHEN 500 MG TAB ONE (17:57)
[2018-12-26] MEDS ORDERED: LEVALBUTEROL 1.25 MG/3 ML NEB ONE (18:17)
[2018-12-26] MEDS ORDERED: MORPHINE 4 MG/ML SYR ONE (18:18)
[2018-12-26 18:20] LABS: Hematocrit 27.6 % (39.6-49.0); Lymphocytes % 3.5 % (15.3-44.8); MPV 8.5 fL (7.6-11.3); RBC Red Blood Cell Count 3.12 M/uL (4.33-5.43)
[2018-12-26] MEDS ORDERED: ACETAMINOPHEN 650MG/RECT SUPP PR ONE (18:29)
[2018-12-26 18:48] LABS: ALT/SGPT 38 U/L (12-78); AST/SGOT 48 U/L (15-37); Albumin 1.3 g/dL (3.4-5.0); Alkaline Phosphatase 204 U/L (45-117); BUN Blood Urea Nitrogen 32 mg/dL (7-18); Bicarbonate 22 mmol/L (21-32); Bilirubin Direct 1.5 mg/dL (0-0.2); Bilirubin Total 2.7 mg/dL (0.2-1.0); Glucose Level 252 mg/dL (74-106); Lipase 154 U/L (73-393); Potassium 5.4 mmol/L (3.5-5.1); Protein, Total 5.9 g/dL (6.4-8.2); Sodium Level 132 mmol/L (136-145); Troponin (Emerg Dept Use Only) < 0.02 ng/mL (0.0-0.045)
--- NOTE | 2018-12-26 18:56 | RAD REPORT ---
EXAM DESCRIPTION: RAD - Chest Single View - 12/26/2018 6:44 pm CLINICAL HISTORY: dyspnea, lung cancer Chest pain. COMPARISON: Chest Single View dated 11/30/2018 FINDINGS: Portable technique limits examination quality. Moderate bilateral pulmonary opacities are present compatible with pulmonary edema or pneumonia. Righ t hilar mass lesion again noted, unchanged. The heart is mildly enlarged in size.
--- NOTE | 2018-12-26 19:14 | ER ---
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 Transition of care: patient was not received from another setting of care. Onset of symptoms was December 26, 2018. Risk Assessment: Do you want to hurt yourself or someone else? Patient reports no desire to harm self or others. Initial Sepsis Screen: Does the patient meet any 2 criteria? No. Patient's initial sepsis screen is negative. Does the patient have a suspected source of infection? No. Patient's initial sepsis screen is negative. Care prior to arrival: Medication(s) given: Fentanyl, 100 mcg IVP IV initiated. 20 GA, in the right antecubital area, Oxygen administered. via nasal cannula. 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 - Social history:: Smoking status: unknown. - Ebola Screening: : No symptoms or risks identified at this time. - Family history:: not pertinent. - Hospitalizations: : Patient was recently seen at. Screenin:06 Abuse screen: Denies threats or abuse. Denies injuries from another. Nutritional ph screening: No deficits noted. Tuberculosis screening: No symptoms or risk factors identified. Fall Risk No fall in past 12 months (0 pts). Secondary diagnosis (15 points) impaired mobility, IV access (20 points). Ambulatory Aid- None/Bed Rest/Nurse Assist (0 pts). Gait- Weak (10 pts.). Mental Status- Overestimates/Forgets Limitations (15 pts.). Total Iraheta Fall Scale indicates High Risk Score (45 or more points). Fall prevention measures have been instituted. Side Rails Up X 2 Placed Close to Nursing Station Frequent Obs/Assessments Occuring Family Present and informed to notify staff if the need to leave the bedside As available patient and family educated on Fall Prevention Program and Strategies. Assessment: 18:05 Reassessment: Pt cleaned of stool, placed in clean brief, blood work drawn and sent to ph lab, Xray at bedside. 18:07 General: Appears uncomfortable, ill, slender, Behavior is cooperative, anxious, drowsy, ph listless. Pain: Complains of pain in "all over". Neuro: Level of Consciousness is awake, obeys commands, confused, listless, Oriented to person, place. Cardiovascular: Reports fatigue, shortness of breath, Capillary refill is sluggish in bilateral fingers Patient's skin is warm and dry. Rhythm is sinus tachycardia. Respiratory: Reports shortness of breath at rest labored breathing Airway is patent Respiratory effort is labored, gasping, with retractions, shallow, Respiratory pattern is tachypnea. GI: Reports diarrhea, Patient currently denies abdominal pain, nausea, vomiting. Derm: Skin is fragile, is thin, with poor turgor Skin is dusky, mottled, pale. Musculoskeletal: Circulation, motion, and sensation intact. Range of motion: intact in all extremities. 18:19 Reassessment: Pt anxious, unable to tolerate Bi-Pap mask, ERP notified will leave on NE.ph 19:30 Reassessment: Patient appears in no apparent distress at this time. Patient and/or aa1 family updated on plan of care and expected duration. Pain level reassessed. Neuro: Level of Consciousness is awake, obeys commands, confused, listless, Oriented to person, place, Facial symmetry appears normal, Pupils are PERRLA. Cardiovascular: Heart tones S1 S2 present Rhythm is regular. Respiratory: Airway is patent Respiratory effort is labored, gasping, Respiratory pattern is symmetrical, tachypnea Breath sounds are coarse bilaterally. the patient has moderate shortness of breath. GI: No signs and/or symptoms were reported involving the gastrointestinal system. : No signs and/or symptoms were reported regarding the genitourinary system. EENT: No signs and/or symptoms were reported regarding the EENT system. Derm: Skin is intact, is thin, with poor turgor Skin is dry, Skin is pale, Skin temperature is warm. Musculoskeletal: Circulation, motion, and sensation intact. Capillary refill < 3 seconds. 20:18 Reassessment: Patient appears in no apparent distress at this time. No changes from aa1 previously documented assessment. Patient and/or family updated on plan of care and expected duration. Pain level reassessed. Report given to Alan Everett RN. Vital Signs: 17:38 BP 98 / 56; Pulse 103; Resp 24; Temp 99.9(TE); Pulse Ox 95% on 6 lpm NC; Weight 68.04 ph kg; Height 6 ft. 1 in. (185.42 cm); 18:07 Pulse 143; Resp 28; Temp 100.8(R); ph 18:52 BP 104 / 71; Pulse 127; Resp 38; Pulse Ox 99% on 55% BiPAP; ph 19:30 BP 98 / 72; Pulse 125; Resp 38; Temp 97.2; Pulse Ox 98% on 50% BiPAP; aa1 20:11 BP 110 / 82; Pulse 122; Resp 38; Temp 98; Pulse Ox 98% on 50% BiPAP; aa1 17:38 Body Mass Index 19.79 (68.04 kg, 185.42 cm) ph ED Course: 17:31 Patient arrived in ED. ph 17:33 Chaim Bynum MD is Attending Physician. rn 17:38 Triage completed. ph 17:57 Flu Sent. jp3 17:58 Flu and/or RSV swab sent to lab. jp3 17:58 Patient has correct armband on for positive identification. Placed in gown. Bed in low jp3 position. Call light in reach. Side rails up X 1. Side rails up X2. Adult w/ patient. Warm blanket given. Verbal reassurance given. quality assurance monitor body on. Pulse ox on. NIBP on. 17:59 No provider procedures requiring assistance completed. Maintain EMS IV. Dressing mg2 intact. Good blood return noted. Site clean \\T\\ dry. Gauge \\T\\ site: 22 \\T\\ RAC. 18:06 Arm band placed on Patient placed in an exam room, on a stretcher, on oxygen, on ph cardiac catheterization technologist, on pulse oximetry. 18:19 Mel Doe, RN is Primary Nurse. ph 18:30 Radiology exam delayed due to per Nurse pt not ready to come down at this time. nj 18:44 Chest Single View XRAY In Process Unspecified. EDMS 18:51 Straight cath inserted, using sterile technique, 16 Fr. Specimen obtained. Returned ph danilo urine. Patient tolerated well. Patient admitted, IV remains in place. 19:03 CT Abd/Pelvis - Without Contrast In Process Unspecified. EDMS 19:12 Pauline Herzog MD is Hospitalizing Provider. rn 19:21 Attending Physician role handed off by Chaim Bynum MD [facility] 19:21 French Hoang MD is Attending Physician. lydia Administered Medications: 17:58 Drug: NS 0.9% 1000 ml Route: IV; Rate: 1000 ml; Site: right antecubital; mg2 20:38 Follow up: IV Status: Infusion continued upon admission; IV Intake: 800ml aa1 18:09 Drug: NS 0.9% 1000 ml Route: IV; Rate: 1000 ml; Site: right antecubital; mg2 20:38 Follow up: IV Status: Infusion continued upon admission; IV Intake: 600ml aa1 18:35 Drug: morphine 4 mg Route: IVP; Site: right antecubital; mg2 19:17 Follow up: Response: No adverse reaction; Pain is decreased; RASS: Drowsy (-1) ph 18:35 Drug: Xopenex 1.25 mg Route: Inhalation; mg2 19:17 Follow up: Response: No adverse reaction ph 18:51 Drug: Tylenol Suppository 650 mg Route: DC; ph 19:18 Follow up: Response: No adverse reaction ph 19:30 Drug: vancoMYCIN 1 grams Route: IVPB; Infused Over: 2 hrs; Site: right antecubital; aa1 20:38 Follow up: IV Status: Infusion continued upon admission aa1 20:54 Not Given (Vancomycin still infusing at time of admission to ICU; Zosyn given to ICU aa1 nurse to administer once vanc completed): Zosyn 3.375 grams IVPB once over 60 mins; (mix in NS 100 mL) Intake: 20:38 IV: 600ml; Total: 600ml. aa1 20:38 IV: 800ml; Total: 1400ml. aa1 Outcome: 19:13 Decision to Hospitalize by Provider. rn 20:38 Admitted to ICU accompanied by nurse, accompanied by tech, family with patient, via aa1 stretcher, room 1, with oxygen, on monitor, with chart, Report called to Alan Everett RN 20:38 Condition: stable 20:38 Discharge instructions given to patient, family, friend, Instructed on the need for admit, Demonstrated understanding of instructions. 20:39 Patient left the ED. mg2 Signatures: Dispatcher [employer] EDMS Celia Peres RN RN aa1 French Hoang MD MD cha Nieto, Roman, MD MD rn Hall, Patricia, RN RN ph Ignacio, Isaías Olivier RN RN mg2 Darin Alas jp3 Corrections: (The following items were deleted from the chart) 18:03 17:32 Acuity: TAPAN 3 ph ph
--- NOTE | 2018-12-26 19:14 | EDPHYS ---
Physician Documentation [facility] Name: Kwadwo Polo Age: 53 yrs Sex: Male : 1965 Arrival Date: 12/26/2018 Time: 17:31 Bed 2 Private MD: LINDSEY Physician French Hoang HPI: 12/26 17:50 This 53 yrs old Unknown Male presents to ER via EMS with complaints of Pain All Over. rn 17:50 The patient has shortness of breath at rest. Onset: The symptoms/episode began/occurred rn today. Duration: The symptoms are continuous. The patient's shortness of breath is aggravated by nothing, is alleviated by nothing. Severity of symptoms: At their worst the symptoms were moderate in the emergency department the symptoms are unchanged. The patient has not experienced similar symptoms in the past. Family member reports increased dyspnea, fever, began today. 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 Was supposed to start immunotherapy here at [facility], just finished radiation at [facility]. Is DNR/DNI. Not on hospice.. 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 - Social history:: Smoking status: unknown. - Ebola Screening: : No symptoms or risks identified at this time. - Family history:: not pertinent. - Hospitalizations: : Patient was recently seen at. ROS: 17:50 Constitutional: + fever Eyes: Negative for injury, pain, redness, and discharge, Neck: rn Negative for injury, pain, and swelling, Cardiovascular: Negative for chest pain, palpitations, and edema, Respiratory: + sob, negative for cough Abdomen/GI: + loose stool and abd pain MS/Extremity: Negative for injury and deformity, Skin: Negative for injury, rash, and discoloration, Neuro: Negative for headache, numbness, tingling, and seizure. Exam: 17:53 Constitutional: Thin male, + respiratory distress Head/Face: Normocephalic, rn atraumatic. ENT: dry MM, no stridor Cardiovascular: Tachycardic, regular, no murmur Respiratory: + diminished bilateral lung carreon with tachypnea and retractions. Abdomen/GI: soft, + mild periumbilical tenderness MS/ Extremity: Pulses equal, no cyanosis. Neuro: Awake, appears somnolent but awakens easily and answers shortly Vital Signs: 17:38 BP 98 / 56; Pulse 103; Resp 24; Temp 99.9(TE); Pulse Ox 95% on 6 lpm NC; Weight 68.04 ph kg; Height 6 ft. 1 in. (185.42 cm); 18:07 Pulse 143; Resp 28; Temp 100.8(R); ph 18:52 BP 104 / 71; Pulse 127; Resp 38; Pulse Ox 99% on 55% BiPAP; ph 19:30 BP 98 / 72; Pulse 125; Resp 38; Temp 97.2; Pulse Ox 98% on 50% BiPAP; aa1 20:11 BP 110 / 82; Pulse 122; Resp 38; Temp 98; Pulse Ox 98% on 50% BiPAP; aa1 17:38 Body Mass Index 19.79 (68.04 kg, 185.42 cm) ph MDM: 17:33 Patient medically screened. rn 18:45 Differential diagnosis: pneumonia, Sepsis UTI, urosepsis. Data reviewed: vital signs, rn nurses notes, lab test result(s), EKG, radiologic studies, plain films, and as a result, I will admit patient. 18:57 ED course: Pt with some improvement with fluids, getting 2L, and BIPAP, which he rn tolerated better after morphine. Pt is DNR/DNI, and pending CT abdomen given abd pain. Very little UOP on cath. . 19:11 Counseling: I had a detailed discussion with the patient and/or guardian regarding: the rn historical points, exam findings, and any diagnostic results supporting the discharge/admit diagnosis, lab results, radiology results, the need for further work-up and treatment in the hospital. Response to treatment: the patient's symptoms have mildly improved after treatment, and as a result, I will admit patient. 19:21 Patient medically screened. [facility] 12/26 17:47 Order name: ABG; Complete Time: 18:20 rn 12/26 17:47 Order name: Urine Culture rn 12/26 17:47 Order name: Basic Metabolic Panel; Complete Time: 19:13 rn 12/26 17:47 Order name: Blood Culture Adult (2) rn 12/26 17:47 Order name: CBC with Diff rn 12/26 17:47 Order name: Lactate; Complete Time: 18:44 rn 12/26 17:47 Order name: LFT's; Complete Time: 19:13 rn 12/26 17:47 Order name: Lipase; Complete Time: 19:13 rn 12/26 17:47 Order name: Procalcitonin; Complete Time: 19:13 rn 12/26 17:47 Order name: Troponin (emerg Dept Use Only); Complete Time: 19:13 rn 12/26 17:47 Order name: Urine Microscopic Only rn 12/26 17:48 Order name: Flu; Complete Time: 18:20 rn 12/26 18:29 Order name: Manual Differential EDMS 12/26 18:49 Order name: Urine Dipstick--Ancillary (enter results) ms 12/26 17:47 Order name: Chest Single View XRAY; Complete Time: 19:13 rn 12/26 19:28 Order name: CBC with Automated Diff EDMS 12/26 19:28 Order name: CBC with Automated Diff EDMS 12/26 19:29 Order name: Comprehensive Metabolic Panel EDMS 12/26 19:29 Order name: Comprehensive Metabolic Panel EDMS 12/26 19:29 Order name: Lipid Profile EDMS 12/26 19:29 Order name: Lipid Profile EDMS 12/26 19:29 Order name: Magnesium EDMS 12/26 19:29 Order name: Magnesium EDMS 12/26 19:29 Order name: Phosphorus EDMS 12/26 19:29 Order name: Phosphorus EDMS 12/26 19:29 Order name: Protime (+INR) EDMS 12/26 19:29 Order name: Protime (+INR) EDMS 12/26 19:29 Order name: PTT, Activated Partial Thromb EDMS 12/26 19:29 Order name: PTT, Activated Partial Thromb EDMS 12/26 20:22 Order name: Lactate aa1 12/26 17:47 Order name: Accucheck; Complete Time: 17:58 rn 12/26 17:47 Order name: Cardiac monitoring; Complete Time: 17:58 rn 12/26 17:47 Order name: EKG - Nurse/Tech; Complete Time: 18:11 rn 12/26 17:47 Order name: IV Saline Lock - Large Bore; Complete Time: 17:58 rn 12/26 17:47 Order name: Labs collected and sent; Complete Time: 17:58 rn 12/26 17:47 Order name: O2 Per Protocol; Complete Time: 17:58 rn 12/26 17:47 Order name: O2 Sat Monitoring; Complete Time: 17:58 rn 12/26 17:47 Order name: Urine Dipstick-Ancillary (obtain specimen); Complete Time: 18:50 rn 12/26 17:56 Order name: CT Abd/Pelvis - Without Contrast rn 12/26 18:08 Order name: BIPAP rn 12/26 19:28 Order name: NPO EDMS Administered Medications: 17:58 Drug: NS 0.9% 1000 ml Route: IV; Rate: 1000 ml; Site: right antecubital; mg2 20:38 Follow up: IV Status: Infusion continued upon admission; IV Intake: 800ml aa1 18:09 Drug: NS 0.9% 1000 ml Route: IV; Rate: 1000 ml; Site: right antecubital; mg2 20:38 Follow up: IV Status: Infusion continued upon admission; IV Intake: 600ml aa1 18:35 Drug: morphine 4 mg Route: IVP; Site: right antecubital; mg2 19:17 Follow up: Response: No adverse reaction; Pain is decreased; RASS: Drowsy (-1) ph 18:35 Drug: Xopenex 1.25 mg Route: Inhalation; mg2 19:17 Follow up: Response: No adverse reaction ph 18:51 Drug: Tylenol Suppository 650 mg Route: MA; ph 19:18 Follow up: Response: No adverse reaction ph 19:30 Drug: vancoMYCIN 1 grams Route: IVPB; Infused Over: 2 hrs; Site: right antecubital; aa1 20:38 Follow up: IV Status: Infusion continued upon admission aa1 20:54 Not Given (Vancomycin still infusing at time of admission to ICU; Zosyn given to ICU aa1 nurse to administer once vanc completed): Zosyn 3.375 grams IVPB once over 60 mins; (mix in NS 100 mL) Disposition: 12/26/18 19:13 Hospitalization ordered by Pauline Herzog for Inpatient Admission. Preliminary diagnosis are Pneumonia, Sepsis, Acute respiratory failure with hypoxia. - Bed requested for Intensive Care Unit. - Status is Inpatient Admission. mg2 - Condition is Serious. - Problem is new. - Symptoms have improved. UTI on Admission? No Signatures: Dispatcher [employer] [facility] Leida Hightower, RN RN Celia Peres RN RN aa1 French Hoang MD MD cha Nieto, Roman, MD MD rn Hall, Patricia, RN RN Isaías Townsend, VALERI RN mg2 Corrections: (The following items were deleted from the chart) 18:03 17:54 Abdomen 1 View (KUB)+RAD.RAD.BRZ ordered. [facility] 19:44 19:13 Hospitalization Ordered by Pauline Herzog MD for Inpatient Admission. Preliminary dw diagnosis is Pneumonia; Sepsis; Acute respiratory failure with hypoxia. Bed requested for Intensive Care Unit. Status is Inpatient Admission. Condition is Serious. Problem is new. Symptoms have improved. UTI on Admission? No. rn 20:39 19:44 12/26/2018 19:13 Hospitalization Ordered by Pauline Herzog MD for Inpatient mg2 Admission. Preliminary diagnosis is Pneumonia; Sepsis; Acute respiratory failure with hypoxia. Bed requested for Intensive Care Unit. Status is Inpatient Admission. Condition is Serious. Problem is new. Symptoms have improved. UTI on Admission? No. dw
--- NOTE | 2018-12-26 19:18 | RAD REPORT ---
EXAM DESCRIPTION: CT - Abdomen Pelvis Wo Contrast - 12/26/2018 6:59 pm CLINICAL HISTORY: Abdominal pain. ABD PAIN COMPARISON: Thorax Wo Con dated 11/30/2018; Ct Skull/Thigh dated 11/13/2018; Head Brain W/Wo Con dated 11/30/2018 TECHNIQUE: CT imaging of the abdomen and pelvis was performed without contrast. Solid organ, bowel a nd vascular assessment is limited due to lack of IV and oral contrast. All CT scans are performed using dose optimization technique as appropriate and may include automated exposure control or mA/KV adjustment according to patient size. FINDINGS: Small right pleural effusion is seen with airspace opacity in both lower lobes. Noncontrast assessment of the liver shows no focal mass or biliary dilatation. The spleen, pancreas a re unremarkable. Large 5 cm left adrenal mass noted. 3 cm right adrenal mass present, compatible with metastasis. No bowel obstruction, free air, free fluid or abscess. Moderate retained stool in the colon. The appe ndix is normal. The osseous structures are within normal limits. IMPRESSION: No acute intra-abdominal or pelvic findings. Bilateral adrenal masses compatible with metastases. A limited non-contrast examination was performed as detailed.
[2018-12-26 19:19] LABS: Anisocytosis SLIGHT; Blood Morphology Comment NOTED (NOT SEEN); Hypochromasia 1+; Platelet Estimate ADEQ; Platelets, Giant NOTED; Polychromasia 1+
[2018-12-26] MEDS ORDERED: ACETAMINOPHEN 500 MG TAB PO PRN (19:19)
[2018-12-26 19:23] LABS: Urine Amorphous Sediment 1+ /HPF (NONE SEEN); Urine Bacteria <20 /HPF (NONE SEEN); Urine Culture Reflex Order NOT NEEDED; Urine Mucus 2+ /HPF (NONE SEEN); Urine RBC 20-50 /HPF (NONE SEEN)
[2018-12-26 19:23] LABS: Urine Blood 2+ (NEG); Urine Glucose NEGATIVE (NEG); Urine Protein 1+ (NEG); Urine pH 5.5 (5.0-7.0)
[2018-12-26] MEDS ORDERED: VANCOMYCIN 1 GM/VIAL ONE (19:29)
[2018-12-26] MEDS ORDERED: NA CHLORIDE 0.9% 250 ML ONE (19:29)
[2018-12-26] MEDS ORDERED: Levofloxacin500mg IV 500 MG/100 ML BAG IV SCH (20:00)
[2018-12-26] MEDS: NA CHLORIDE 0.9% 1,000 ML IV SCH (20:00)
[2018-12-26] MEDS ORDERED: ALBUTEROL 2.5 MG/3 ML NEB SOL NEB SCH (20:00)
[2018-12-26] MEDS: IPRATROPIUM BROM 0.5MG/2.5ML NEB SCH (20:00)
[2018-12-26] MEDS: levETIRAcetam 500 MG TAB PO SCH (22:26)
[2018-12-26] MEDS ORDERED: FENTANYL CITR 100 MCG/2 ML IV PRN (23:20)
[2018-12-26] MEDS: PIPER/TAZO/NS 3.375gm 3.375 GM/100 ML BAG IVPB SCH (23:31)
[2018-12-27] MEDS: FENTANYL CITR 100 MCG/2 ML IV PRN ×3 (01:51→07:29)
[2018-12-27] MEDS ORDERED: LORazepam 2 MG/ML VIAL IV ONE (03:20)
[2018-12-27] MEDS: IPRATROPIUM BROM 0.5MG/2.5ML NEB SCH ×5 (04:00→14:59)
[2018-12-27] MEDS ORDERED: PIPERACIL/TAZO 3.375 GM VIAL IV ONE (04:36)
[2018-12-27] MEDS ORDERED: NA CHLORIDE 0.9% 100 ML ONE (04:36)
[2018-12-27] MEDS: PIPER/TAZO/NS 3.375gm 3.375 GM/100 ML BAG IVPB SCH (05:23)
[2018-12-27 05:29] VITALS: BMI 21.4
[2018-12-27] MEDS ORDERED: HYDROMORPHONE HCL 1 MG/ML INJ IV ONE ×2 (05:41→08:45)
[2018-12-27 06:05] LABS: Basophils % 0.2 % (0-1.3); Hematocrit 25.2 % (39.6-49.0); Lymphocytes % 4.4 % (15.3-44.8); MPV 8.9 fL (7.6-11.3); RBC Red Blood Cell Count 2.85 M/uL (4.33-5.43)
[2018-12-27 06:06] LABS: ALT/SGPT 43 U/L (12-78); AST/SGOT 52 U/L (15-37); Albumin 1.3 g/dL (3.4-5.0); Alkaline Phosphatase 192 U/L (45-117); BUN Blood Urea Nitrogen 34 mg/dL (7-18); Bicarbonate 22 mmol/L (21-32); Bilirubin Total 2.6 mg/dL (0.2-1.0); Glucose Level 215 mg/dL (74-106); HDL Cholesterol 40 mg/dL (40-60); LDL Cholesterol, Calculated 53 (<130); Magnesium 2.3 mg/dL (1.8-2.4); Phosphorus 4.7 mg/dL (2.5-4.9); Potassium 5.4 mmol/L (3.5-5.1); Protein, Total 5.4 g/dL (6.4-8.2); Sodium Level 137 mmol/L (136-145)
[2018-12-27 06:15] LABS: Protime INR 1.61
--- NOTE | 2018-12-27 08:02 | P.HP ---
Certification for Inpatient Patient admitted to: Inpatient With expected LOS: >2 Midnights Patient will require the following post-hospital care: None Practitioner: I am a practitioner with admitting privileges, knowledge of patient current condition, hospital course, and medical plan of care. Services: Services provided to patient in accordance with Admission requirements found in Title 42 Section 412.3 of the Code of Federal Regulations Patient History Date of Service: 12/26/18 Reason for admission: Metastatic lung disease History of Present Illness: Patient is a 53-year-old gentleman with a history of metastatic lung cancer. Patient has metastasis to the brain. Patient recently completed radiation therapy at the [facility] According to was he had 10 courses. He left but was still having extreme amount of pain. He was given hydrocodone at discharge. Patient states that he started becoming more short of breath and restless. She brought him into the hospital for further evaluation. In the ER the patient was placed on BiPAP. It was felt that he may have a pneumonia. Patient was admitted to the ICU. After admissions, I had a long discussion with the and she decided that she wants palliative care. Plan to do comfort measures only at this time. Will go ahead and transfer to general medical floor so family can stay with the patient. Patient's prognosis is poor and in my opinion patient is unexpected to survive no more than 48 hrs. Allergies No Known Allergies Allergy (Verified 12/26/18 21:01) Home Medications: Albuterol Neb [Proventil 0.083% Neb Soln] 2.5 mg IH Q4HP PRN 12/26/18 Albuterol Sulfate [Albuterol Sulfate Hfa] 2 puff IH Q4HP PRN 12/26/18 Hydrocodone Bit/Acetaminophen [Hydrocodon-Acetaminophn 10-325] 1 each PO Q6HP PRN 12/26/18 Ipratropium Neb [Atrovent Neb] 0.5 mg IH Q4HP PRN 12/26/18 Levetiracetam [Keppra] 2 tab PO Q12H 12/26/18 Omeprazole 20 mg PO ACB 12/26/18 dexAMETHasone [Dexamethasone] 4 mg PO Q6H 12/26/18 hydrOXYzine HCl [Atarax] 50 mg PO TIDP PRN 12/26/18 - Past Medical/Surgical History Has patient received pneumonia vaccine in the past: No Diabetic: Yes -: IDDM but recently stopped Insulin by doctors -: Lung Cancer with mets to the brain and bone, recent radiation 11/23 -: Htn -: Back Sx - Family History Father Family History: Reviewed- Non-Contributory - Social History Smoking Status: Former smoker Alcohol use: No CD- Drugs: No Caffeine use: Yes Place of Residence: Home Review of Systems 10-point ROS is otherwise unremarkable Physical Examination - Vital Signs Temperature: 99.8 F Blood Pressure: 98/57 Pulse: 127 Respirations: 38 Pulse Ox (%): 93 - Physical Exam General: Alert HEENT: Atraumatic, PERRLA, Mucous membr. moist/pink, EOMI, Sclerae nonicteric Neck: Supple, 2+ carotid pulse no bruit, No LAD, Without JVD or thyroid abnormality Respiratory: Diminished, Expiratory wheezes, Rhonchi/gurgles Cardiovascular: Regular rate/rhythm, Normal S1 S2, Systolic murmur Gastrointestinal: Normal bowel sounds, Soft and benign, Non-distended, No tenderness Musculoskeletal: No clubbing, No swelling, No tenderness Integumentary: No rashes Neurological: Sensation intact, Cranial nerves 3-12 intact, Normal affect, Abnormal gait, Abnormal speech, Abnormal strength Lymphatics: No axilla or inguinal lymphadenopathy - Studies Laboratory Data (last 24 hrs) 12/26/18 18:00: WBC 57.4 H*, Hgb 8.7 L, Hct 27.6 L, Plt Count 204 12/26/18 18:00: Sodium 132 L, Potassium 5.4 H, BUN 32 H, Creatinine 0.75, Glucose 252 H, Total Bilirubin 2.7 H, AST 48 H, ALT 38, Alkaline Phosphatase 204 H, Lipase 154 Microbiology Data (last 24 hrs): 12/26/18 17:52 Nasopharnyx Influenza Type A Antigen Screen - Final 12/26/18 17:52 Nasopharnyx Influenza Type B Antigen Screen - Final Assessment & Plan - Problems (Diagnosis) (1) Lung cancer metastatic to brain Current Visit: Yes Status: Acute (2) Postobstructive pneumonia Current Visit: Yes Status: Acute (3) Leukocytosis Current Visit: Yes Status: Acute (4) Hyperkalemia Current Visit: Yes Status: Acute (5) Hypoalbuminemia due to protein-calorie malnutrition Current Visit: Yes Status: Acute - Plan 1. Continue with IV antibiotics 2. Palliative care 3. Continue with nebs as needed 4. O2 per protocol 5. Continue with gentle hydration 6. GI and DVT prophylaxis Discharge Plan: Other (Palliative care) Plan to discharge in: 48 Hours - Advance Directives Does patient have a Living Will: Yes Does patient have a Durable POA for Healthcare: No - Code Status/Comfort Care Comfort Measures: Palliative Care Critical Care: No Time Spent Managing PTS Care (In Minutes): 50
[2018-12-27] MEDS ORDERED: ENOXAPARIN 40 MG/0.4 ML SQ SCH (09:00)
[2018-12-27] MEDS: levETIRAcetam 500 MG TAB PO SCH (09:00)
[2018-12-27] MEDS: NA CHLORIDE 0.9% 1,000 ML IV SCH ×2 (09:20→15:32)
[2018-12-27] MEDS: LORazepam 2 MG/ML VIAL IV PRN ×2 (10:11→15:23)
[2018-12-27] MEDS ORDERED: levETIRAcetam 1,500 MG in NA CHLORIDE 0.9% 100 ML IV SCH (10:30)
--- NOTE | 2018-12-27 11:53 | P.PN ---
Subjective Date of Service: 12/27/18 Chief Complaint: Metastatic lung disease Subjective: No new changes Patient seen and examined at bedside. No family at bedside. Chart reviewed and case discussed with nursing staff. Currently on palliative/comfort care Review of Systems 10-point ROS is otherwise unremarkable Physical Examination - Vital Signs Temperature: 99.8 F Blood Pressure: 167/67 Pulse: 130 Respirations: 31 Pulse Ox (%): 95 - Physical Exam General: Cachectic, Mild distress HEENT: Atraumatic, PERRLA, EOMI Neck: Supple, JVD not distended Respiratory: Other (Agonal breathing) Cardiovascular: Normal S1 S2 Gastrointestinal: Normal bowel sounds, No tenderness Musculoskeletal: No tenderness Integumentary: No rashes - Studies Laboratory Data (last 24 hrs) 12/26/18 18:00: WBC 57.4 H*, Hgb 8.7 L, Hct 27.6 L, Plt Count 204 12/26/18 18:00: Sodium 132 L, Potassium 5.4 H, BUN 32 H, Creatinine 0.75, Glucose 252 H, Total Bilirubin 2.7 H, AST 48 H, ALT 38, Alkaline Phosphatase 204 H, Lipase 154 Microbiology Data (last 24 hrs): 12/26/18 17:52 Nasopharnyx Influenza Type A Antigen Screen - Final 12/26/18 17:52 Nasopharnyx Influenza Type B Antigen Screen - Final Assessment And Plan - Current Problems (Diagnosis) (1) Hyperkalemia Current Visit: Yes Status: Acute (2) Hypoalbuminemia due to protein-calorie malnutrition Current Visit: Yes Status: Acute (3) Leukocytosis Current Visit: Yes Status: Acute (4) Lung cancer metastatic to brain Current Visit: Yes Status: Acute (5) Postobstructive pneumonia Current Visit: Yes Status: Acute - Plan Patient is currently comfort/palliative care. Will continue that. Patient has very poor prognosis and is expected to pass in 24-48 hr, in my opinion. Discussed with family regarding hospice care. Family agrees. Criss with a med contacted, she will talk to the family today. Patient currently pending a bed on the floor to be transferred out of the ICU. - Code Status/Comfort Care Code Status: Do Not Attempt Resuscitat Comfort Measures: Palliative Care Time Spent Managing PTS Care (In Minutes): 45
[2018-12-27] MEDS ORDERED: HYDROMORPHONE HCL 1 MG/ML INJ ONE (11:56)
[2018-12-27] MEDS: HYDROMORPHONE HCL 1 MG/ML INJ IV PRN ×3 (12:06→16:46)
[2018-12-27 12:58] VITALS: TEMP 100.2
[2018-12-27] MEDS ORDERED: PIPER/TAZO/NS 3.375gm 3.375 GM/100 ML BAG IVPB SCH (17:00)
--- NOTE | 2018-12-27 17:39 | P.DS ---
Admission Date: 12/26/18 Discharge Date: 12/27/18 Disposition: HOSPICE-MEDICAL FACILITY Reason for Admission: Metastatic lung disease - Problems (1) Hyperkalemia Status: Acute (2) Hypoalbuminemia due to protein-calorie malnutrition Status: Acute (3) Leukocytosis Status: Acute (4) Lung cancer metastatic to brain Status: Acute (5) Postobstructive pneumonia Status: Acute Brief History of Present Illness: Patient is a 53-year-old gentleman with a history of metastatic lung cancer. Patient has metastasis to the brain. Patient recently completed radiation therapy at the [facility]. According to was he had 10 courses. He left but was still having extreme amount of pain. He was given hydrocodone at discharge. Patient states that he started becoming more short of breath and restless. She brought him into the hospital for further evaluation. In the ER the patient was placed on BiPAP. It was felt that he may have a pneumonia. Patient was admitted to the ICU. After admissions, I had a long discussion with the and she decided that she wants palliative care. Plan to do comfort measures only at this time. Will go ahead and transfer to general medical floor so family can stay with the patient. Patient's prognosis is poor and in my opinion patient is unexpected to survive no more than 48 hrs. Hospital Course: Patient is currently comfort/palliative care. Will continue that. Patient has very poor prognosis and is expected to pass in 24-48 hr, in my opinion. Discussed with family regarding hospice care. Family agrees. Criss with [facility] contacted, family chose hospice care. Patient was transferred to inpatient hospice Vital Signs/Physical Exam: Temp Pulse Resp BP Pulse Ox 100.2 F 131 H 30 H 132/94 H 98 12/27/18 12:00 12/27/18 12:00 12/27/18 16:46 12/27/18 12:00 12/27/18 16:46 Laboratory Data at Discharge: WBC 45.0 K/uL (4.3-10.9) H* D 12/27/18 05:21 Hgb 8.2 g/dL (13.6-17.9) L 12/27/18 05:21 Hct 25.2 % (39.6-49.0) L 12/27/18 05:21 Plt Count 171 K/uL (152-406) 12/27/18 05:21 PT 18.7 SECONDS (9.5-12.5) H 12/27/18 05:21 INR 1.61 12/27/18 05:21 APTT 25.1 SECONDS (24.3-36.9) 12/27/18 05:21 Sodium 137 mmol/L (136-145) 12/27/18 05:21 Potassium 5.4 mmol/L (3.5-5.1) H 12/27/18 05:21 BUN 34 mg/dL (7-18) H 12/27/18 05:21 Creatinine 0.67 mg/dL (0.55-1.3) 12/27/18 05:21 Glucose 215 mg/dL (74-106) H 12/27/18 05:21 Phosphorus 4.7 mg/dL (2.5-4.9) 12/27/18 05:21 Magnesium 2.3 mg/dL (1.8-2.4) 12/27/18 05:21 Total Bilirubin 2.6 mg/dL (0.2-1.0) H 12/27/18 05:21 AST 52 U/L (15-37) H 12/27/18 05:21 ALT 43 U/L (12-78) 12/27/18 05:21 Alkaline Phosphatase 192 U/L (45-117) H 12/27/18 05:21 Triglycerides 143 mg/dL (<150) 12/27/18 05:21 Cholesterol 122 mg/dL (<200) 12/27/18 05:21 HDL Cholesterol 40 mg/dL (40-60) 12/27/18 05:21 Cholesterol/HDL Ratio 3.05 12/27/18 05:21 Lipase 154 U/L (73-393) 12/26/18 18:00 Home Medications: Albuterol Neb [Proventil 0.083% Neb Soln] 2.5 mg IH Q4HP PRN 12/26/18 Albuterol Sulfate [Albuterol Sulfate Hfa] 2 puff IH Q4HP PRN 12/26/18 Hydrocodone Bit/Acetaminophen [Hydrocodon-Acetaminophn 10-325] 1 each PO Q6HP PRN 12/26/18 Ipratropium Neb [Atrovent Neb] 0.5 mg IH Q4HP PRN 12/26/18 Levetiracetam [Keppra] 2 tab PO Q12H 12/26/18 Omeprazole 20 mg PO ACB 12/26/18 dexAMETHasone [Dexamethasone] 4 mg PO Q6H 12/26/18 hydrOXYzine HCl [Atarax] 50 mg PO TIDP PRN 12/26/18
[2018-12-27 18:36] VITALS: BP 151/64; O2SAT 99
--- NOTE | 2018-12-28 18:28 | EKG ---
Test Date: 2018-12-26 Test Time: 18:07:46 Crew Leader: MG MEASUREMENT RESULTS: Intervals: Rate: 141 NE: 122 QRSD: 78 QT: 280 QTc: 428 [place]: P: 16 NE: 122 QRS: 48 T: 91 INTERPRETIVE STATEMENTS: Sinus tachycardia Nonspecific ST and T wave abnormality Abnormal ECG Compared to ECG 11/30/2018 13:17:28 No significant changes Electronically Signed On 12-28-18 18:23:22 CDT by Nam Barrett
== END 2018-12-27 16:44 | disposition hospice, inpatient (51) | DRG 194 ==
LOC: ER 17:36 → ERHOLD 19:52 → 3RD-ICU 20:20 → 2ND 12-27 12:50
PROVIDERS: ADMIT Hospitalist; ATTEND Hospitalist
PROC: 5A09357 Assistance with Respiratory Ventilation, Less than 24 Consecutive Hours, Continuous Positive Airway Pressure (ICD-10-PCS; principal; 2018-12-26)
DX: J18.9 Pneumonia, unspecified organism (principal); C34.90 Malignant neoplasm of unspecified part of unspecified bronchus or lung; C79.31 Secondary malignant neoplasm of brain; E46 Unspecified protein-calorie malnutrition; E87.5 Hyperkalemia; E88.09 Other disorders of plasma-protein metabolism, not elsewhere classified; Z68.21 Body mass index [BMI] 21.0-21.9, adult; E11.9 Type 2 diabetes mellitus without complications; I10 Essential (primary) hypertension
CPT/HCPCS: 36415; 51702; 71045; 74176; 80048; 80053; 80061; 80076; 81003; 81015; 82805; 82962; 83605; 83690; 83735; 84100; 84145; 84484; 85025; 85610; 85730; 87040; 87086; 87088; 87493; 87804; 93005; 94640; 94660; 96361; 96365; 96375; 99285; J1170; J1953; J2543; J3010; J7030

== ENCOUNTER 2018-12-27 16:41 | Inpatient (IN) | payer OTHER ==
--- OUTSIDE RECORDS SUMMARY | 2018-12-27 16:59 | XMS REPORT | Clinical Summary ---
:1965 Author Organization [facility] Address [address] [place] [address] Care Team Providers Name Role Phone Unavailable Primary Care Provider Unavailable Allergies No Known Allergies Medications Medication Sig Dispensed Refills Start Date End Date Status albuterol HFA Inhale 2 1 Inhaler 0 12/03/2018 12/03/2019 Active (VENTOLIN HFA) 90 puffs by mcg/actuation mouth via inhaler inhaler every 6 (six) hours as needed for Wheezing. levETIRAcetam Take 1 tablet 60 tablet 2 12/03/2018 12/03/2019 Active (KEPPRA) 500 MG (500 mg tablet total) by mouth 2 (two) times daily. omeprazole Take 1 10 capsule 0 12/04/2018 12/04/2019 Active (PRILOSEC) 20 MG capsule (20 capsule mg total) by mouth every morning before breakfast. budesonide-formoter Inhale 2 1 Inhaler 12 12/03/2018 12/03/2019 Active ol (SYMBICORT) puffs by 80-4.5 mouth via mcg/actuation inhaler 2 inhaler (two) times daily. ALPRAZolam (XANAX) Take 1 tablet 30 tablet 0 12/05/2018 01/04/2019 Active 0.5 MG tablet (0.5 mg total) by mouth every night as needed for Anxiety for up to 30 days. Max Daily Amount: 0.5 mg predniSONE Take 10 mg by 0 12/03/2018 Discontinued (DELTASONE) 10 MG mouth 2 (two) tablet times daily. metoprolol Take 12.5 mg 0 12/03/2018 Discontinued (TOPROL-XL) 25 MG by mouth 24 hr daily. tabletIndications: hypertension dexAMETHasone Take 1 tablet 30 tablet 0 12/03/2018 12/13/2018 (DECADRON) 4 MG (4 mg total) tablet by mouth every 6 (six) hours for 5 days, THEN 1 tablet (4 mg total) every 12 (twelve) hours for 5 days. levoFLOXacin Take 1 tablet 3 tablet 0 12/03/2018 12/06/2018 (LEVAQUIN) 500 MG (500 mg tablet total) by mouth daily for 3 days. HYDROcodone-acetami Take 1 tablet 30 tablet 0 12/03/2018 12/13/2018 nophen (NORCO by mouth 5-325) 5-325 mg per every 6 (six) tablet hours as needed for Pain for up to 10 days. Max Daily Amount: 4 tablets HYDROcodone-acetami Take 1 tablet 30 tablet 0 12/05/2018 12/15/2018 nophen (NORCO by mouth 10-325) 10-325 mg every 6 (six) per tablet hours as needed for Pain for up to 10 days. Max Daily Amount: 4 tablets Active Problems Problem Noted Date Physical deconditioning 12/04/2018 COPD (chronic obstructive pulmonary disease) 12/03/2018 Malignant neoplasm of overlapping sites of right lung 12/01/2018 Brain metastases 12/01/2018 Cerebral edema 12/01/2018 Brain compression 12/01/2018 Resolved Problems Problem Noted Date Resolved Date Acute encephalopathy 12/01/2018 12/01/2018 Seizures 11/30/2018 12/01/2018 Encounters Date Type Specialty Care Team Description 12/01/2018 Travel 11/30/2018 - Hospital Encounter General Internal Hitesh Alba Chronic obstructive pulmonary disease, unspecified COPD type (HCC) (Primary Dx); 12/04/2018 Joaquin Pitts MD Seizures (HCC); Merchant Malignant neoplasm of overlapping sites of right lung (HCC); MD Alfonso Cerebral edema (HCC); Brain metastases (HCC); Brain compression (HCC); Acute encephalopathy; Pain; Adjustment disorder with anxious mood; Advance care planning; DNR (do not resuscitate); Palliative care by specialist after 12/26/2017 Immunizations Name Dates Previously Given Next Due Pneumococcal Conjugate (Prevnar) 13-Valent 12/01/2018 (Deferred: ) Family History Medical History Relation Name Comments Lung cancer Father Lung cancer Paternal Grandmother Relation Name Status Comments Father Paternal Grandmother Social History Tobacco Use Types Packs/Day Years Used Date Current Every Day Smoker Cigarettes Smokeless Tobacco: Never Used Alcohol Use Drinks/Week oz/Week Comments Yes Alcohol Habits Answer Date Recorded How often do you have a drink containing 4 or more times a week 12/01/2018 alcohol? How many drinks containing alcohol do you have 7 to 9 12/01/2018 on a typical day when you are drinking? How often do you have six or more drinks on one Not asked occasion? Sex Assigned at Date Recorded Not on file Job Start Date Occupation Industry Not on file Not on file Not on file Travel History Travel Start Travel End No recent travel history available. Last Filed Vital Signs Vital Sign Reading Time Taken Blood Pressure 124/83 12/04/2018 8:42 AM CDT Pulse 96 12/04/2018 8:42 AM CDT Temperature 36.4 C (97.6 F) 12/04/2018 8:42 AM CDT Respiratory Rate 16 12/04/2018 11:08 AM CDT Oxygen Saturation 93% 12/04/2018 8:42 AM CDT Inhaled Oxygen Concentration - - Weight 78.5 kg (173 lb 1 oz) 12/01/2018 1:15 AM CDT Height 185.4 cm (6' 1") 12/01/2018 1:15 AM CDT Body Mass Index 22.83 12/01/2018 1:15 AM CDT Plan of Treatment Not on file Procedures Procedure Name Priority Date/Time Associated Comments Diagnosis RHYTHM STRIP - SCAN 12/05/2018 1:40 PM CDT CBC W/PLT COUNT & AUTO Routine 12/04/2018 3:04 Results for this DIFFERENTIAL AM CDT procedure are in the results section. VANCOMYCIN LEVEL, Timed 12/04/2018 3:04 Results for this TROUGH AM CDT procedure are in the results section. BASIC METABOLIC PANEL Routine 12/04/2018 3:04 Results for this (7) AM CDT procedure are in the results section. CBC W/PLT COUNT & AUTO Routine 12/04/2018 3:04 Results for this DIFFERENTIAL AM CDT procedure are in the results section. POCT-GLUCOSE METER Routine 12/03/2018 9:39 Results for this PM CDT procedure are in the results section. CBC W/PLT COUNT & AUTO Routine 12/03/2018 4:35 Results for this DIFFERENTIAL AM CDT procedure are in the results section. BASIC METABOLIC PANEL Routine 12/03/2018 4:35 Results for this (7) AM CDT procedure are in the results section. CBC W/PLT COUNT & AUTO Routine 12/03/2018 4:35 Results for this DIFFERENTIAL AM CDT procedure are in the results section. POCT-GLUCOSE METER Routine 12/02/2018 9:11 Results for this PM CDT procedure are in the results section. XR SHOULDER LEFT Routine 12/02/2018 2:10 Results for this COMPLETE MIN 2 VIEWS PM CDT procedure are in the results section. POCT-GLUCOSE METER Routine 12/02/2018 11:48 Results for this AM CDT procedure are in the results section. VANCOMYCIN LEVEL, Timed 12/02/2018 11:35 Results for this TROUGH AM CDT procedure are in the results section. URINALYSIS W/ REFLEX Routine 12/02/2018 9:40 Results for this URINE CULTURE AM CDT procedure are in the results section. POCT-GLUCOSE METER Routine 12/02/2018 9:31 Results for this AM CDT procedure are in the results section. MR BRAIN WITHOUT & Routine 12/02/2018 9:16 Results for this WITH IV CONTRAST AM CDT procedure are in the results section. BASIC METABOLIC PANEL Routine 12/02/2018 3:50 Results for this (7) AM CDT procedure are in the results section. (CELLAVISION MANUAL Routine 12/02/2018 3:49 Results for this DIFF) AM CDT procedure are in the results section. CBC W/PLT COUNT & AUTO Routine 12/02/2018 3:49 Results for this DIFFERENTIAL AM CDT procedure are in the results section. CBC W/PLT COUNT & AUTO Routine 12/02/2018 3:49 Results for this DIFFERENTIAL AM CDT procedure are in the results section. POCT-GLUCOSE METER Routine 12/01/2018 9:43 Results for this PM CDT procedure are in the results section. POCT-GLUCOSE METER Routine 12/01/2018 5:32 Results for this PM CDT procedure are in the results section. XR CHEST 1 VIEW Routine 12/01/2018 9:22 Results for this PORTABLE/BEDSIDE AM CDT procedure are in the results section. POCT-GLUCOSE METER Routine 12/01/2018 7:55 Results for this AM CDT procedure are in the results section. (CELLAVISION MANUAL Routine 12/01/2018 5:29 Results for this DIFF) AM CDT procedure are in the results section. CBC W/PLT COUNT & AUTO Routine 12/01/2018 5:29 Results for this DIFFERENTIAL AM CDT procedure are in the results section. CBC W/PLT COUNT & AUTO Routine 12/01/2018 5:29 Results for this DIFFERENTIAL AM CDT procedure are in the results section. BASIC METABOLIC PANEL Routine 12/01/2018 5:29 Results for this (7) AM CDT procedure are in the results section. COMPREHENSIVE Routine 11/30/2018 11:26 Results for this METABOLIC PANEL PM CDT procedure are in the results section. BLOOD CULTURE Routine 11/30/2018 11:26 Results for this PM CDT procedure are in the results section. BLOOD CULTURE Routine 11/30/2018 11:25 Results for this PM CDT procedure are in the results section. after 12/26/2017 Results RHYTHM STRIP - SCAN (12/05/2018 1:40 PM CDT) Narrative Performed At CBC with platelet count + automated diff (12/04/2018 3:04 AM CDT)Only the most recent of4 resultswithin the time period is included. WBC 35.1 (H) 3.5 - 10.5 K/L [facility] RBC 3.25 (L) 4.63 - 6.08 M/L [facility] Hemoglobin 9.1 (L) 13.7 - 17.5 GM/DL [facility] Hematocrit 29.8 (L) 40.1 - 51.0 % [facility] MCV 91.7 79.0 - 92.2 fL [facility] MCH 28.0 25.7 - 32.2 pg [facility] MCHC 30.5 (L) 32.3 - 36.5 GM/DL [facility] RDW 13.9 11.6 - 14.4 % [facility] Platelets 518 (H) 150 - 450 K/CU MM [facility] MPV 9.8 9.4 - 12.4 fL [facility] nRBC 0 0 - 0 /100 WBC [facility] % Neutros 87 % [facility] % Lymphs 6 % [facility] % Monos 4 % [facility] % Eos 0 % [facility] % Baso 0 % [facility] # Neutros 30.59 (H) 1.78 - 5.38 K/L [facility] # Lymphs 2.14 1.32 - 3.57 K/L [facility] # Monos 1.38 (H) 0.30 - 0.82 K/L [facility] # Eos 0.02 (L) 0.04 - 0.54 K/L [facility] # Baso 0.06 0.01 - 0.08 K/L [facility] Immature 3 (H) 0 - 1 % [facility] Granulocytes-[facility] Specimen Blood Performing Organization Address City/[facility]/Zipcode Phone Number [address] [address] [place] Vancomycin level, trough (12/04/2018 3:04 AM CDT)Only the most recent of2 resultswithin the time period is included. Vancomycin Tr 4.7 (L) 10.0 - 20.0 ug/mL [facility] Specimen Blood Narrative Performed At Draw 30 min prior to scheduled dose, HOLD if [facility] level > 20 mcg/mL, tico [place] Performing Organization Address City/[facility]/Zipcode Phone Number [address] [address] CENTER Basic metabolic panel (12/04/2018 3:04 AM CDT)Only the most recent of4 resultswithin the time period is included. Sodium 137 136 - 145 meq/L [facility] Potassium 4.2 3.5 - 5.1 meq/L [facility] Chloride 104 98 - 107 meq/L [facility] CO2 26 22 - 29 meq/L [facility] BUN 10 7 - 21 mg/dL [facility] Creatinine 0.57 0.57 - 1.25 mg/dL [facility] Glucose 142 (H) 70 - 105 mg/dL [facility] Calcium 9.1 8.4 - 10.2 mg/dL [facility] EGFR 148Comment: ESTIMATED GFR IS mL/min/1.73 sq m [facility] NOT ACCURATE [facility] CLEARANCE IN PREDICTING GLOMERULAR FILTRATION RATE. ESTIMATED GFR IS NOT APPLICABLE FOR DIALYSIS PATIENTS. Specimen Blood Performing Organization Address City/State/Zipcode Phone Number [address] [address] [place] POC-Glucose meter (12/03/2018 9:39 PM CDT)Only the most recent of7 resultswithin the time period is included. POC-Glucose Meter 243 (H)Comment: TESTED AT 70 - 110 mg/dL [address] [address] Specimen Blood Performing Organization Address City/State/Zipcode Phone Number [address] [phone] CENTER XR shoulder complete 2 views min left (12/02/2018 2:10 PM CDT) Specimen Narrative Performed At FINAL REPORT [facility] RAD, SHOULDER, COMPLETE (MIN 2 VIEWS), LEFT INDICATION: concern for rotator cuff injury COMPARISON: None TECHNIQUE: AP, lateral and oblique radiographs of the left shoulder FINDINGS/IMPRESSION: Increased distance and sclerosis at the acromioclavicular joint, which may indicate prior infection and/or prior sprain. No elevation of the clavicle to suggest AC separation. Minimal glenohumeral joint space narrowing. Signed: Mandi Mahoney MD Report Verified Date/Time:12/02/2018 14:32:19 Reading Location: [facility] Reading Room Procedure Note Interface, External Ris In - 12/02/2018 2:34 PM CDT FINAL REPORT RAD, SHOULDER, COMPLETE (MIN 2 VIEWS), LEFT INDICATION: concern for rotator cuff injury COMPARISON: None TECHNIQUE: AP, lateral and oblique radiographs of the left shoulder FINDINGS/IMPRESSION: Increased distance and sclerosis at the acromioclavicular joint, which may indicate prior infection and/or prior sprain. No elevation of the clavicle to suggest AC separation. Minimal glenohumeral joint space narrowing. Signed: Mandi Mahoney MD Report Verified Date/Time: 12/02/2018 14:32:19 Reading Location: [facility] Radiology Reading Room Performing Organization Address City/State/Zipcode Phone Number [facility] Urinalysis w/Microscopic + Reflex to Culture (12/02/2018 9:40 AM CDT) Color, UA Yellow [facility] Clarity, UA Clear [facility] Specific [place], UA 1.016 1.001 - 1.035 [facility] pH, UA 6.5 5.0 - 8.0 [facility] Protein, UA Negative Negative [facility] Glucose, UA Negative Negative [facility] Ketones, UA Negative Negative [facility] Bilirubin, UA Negative Negative [facility] Blood, UA Negative Negative [facility] Nitrite, UA Negative Negative [facility] Leukocytes, UA Negative Negative [facility] Urobilinogen, UA 2.0 (H) 0.2 - 1.0 mg/dL [facility] RBC, UA 0 /HPF [facility] WBC, UA 1 /HPF [facility] Mucus Occasional [facility] Specimen Source [facility] Specimen Urine Performing Organization Address City/State/Zipcode Phone Number [facility] [address] [place] [address] CENTER MR brain without & with IV contrast (12/02/2018 9:16 AM CDT) Specimen Narrative Performed At FINAL REPORT [facility] MR, BRAIN, WITH \\T\\ WITHOUT CONTRAST INDICATION: Neoplasm: head, metastatic TECHNIQUE: Multiplanar, multisequence MR imaging of the brain was obtained before and after uneventful administration of gadolinium contrast. COMPARISON: None FINDINGS: There are innumerable partially hemorrhagic metastases throughout the [...] recent infarct or extra-axial hemorrhage is detected. Reference lesions are as follows: *Left occipital lobe 24 x 28 x 31 mm; *Right superior frontal gyrus posteriorly 17 x 15 [...] partially hemorrhagic foci as described. Signed: JR Hodgson Robert MD Report Verified Date/Time:12/02/2018 09:26:37 Reading Location: [facility] C013V Neuro Reading Room Procedure Note Interface, External Ris In - 12/02/2018 9:28 AM CDT FINAL REPORT MR, BRAIN, WITH \\T\\ WITHOUT CONTRAST INDICATION: Neoplasm: head, metastatic TECHNIQUE: Multiplanar, multisequence MR imaging of the brain was obtained before and after uneventful administration of gadolinium contrast. COMPARISON: None FINDINGS: There are innumerable partially hemorrhagic metastases throughout the [...] recent infarct or extra-axial hemorrhage is detected. Reference lesions are as follows: *Left occipital lobe 24 x 28 x 31 mm; *Right superior frontal gyrus posteriorly 17 x 15 [...] partially hemorrhagic foci as described. Signed: JR Gokul, Silvia GARCIA Report Verified Date/Time: 12/02/2018 09:26:37 Reading Location: [facility] B1 C013V Neuro Reading Room Performing Organization Address City/State/Zipcode Phone Number [facility] Manual Differential (12/02/2018 3:49 AM CDT)Only the most recent of2 resultswithin the time period is included. % Neutros 95 % [facility] % Lymphs 5 % [facility] # Neutros 31.45 (H) 1.78 - 5.38 K/ul [facility] # Lymphs 1.66 1.32 - 3.57 K/ul [facility] Total Counted 100 [facility] WBC Morphology Normal [facility] Large Platelet Present [facility] Anisocytosis 1+ few [facility] Microcytes 1+ few [facility] Poikilocytes 1+ few [facility] Spherocytes 1+ few [facility] Elliptocytes 1+ few [facility] Ovalocytes 1+ few [facility] Artifact Present [facility] Platelet Conc Increased [facility] Specimen Blood Narrative Performed At Received comment: [facility] User comments: Slide comments: Performing Organization Address City/State/Zipcode Phone Number [facility] [address] [place] [address] CENTER XR chest 1 view portable / bedside (12/01/2018 9:22 AM CDT) Specimen Narrative Performed At FINAL REPORT [facility] INDICATION: Pneumonia COMPARISON: None TECHNIQUE: Single frontal view of the chest. FINDINGS: Lungs and pleura: Platelike atelectasis within the right midlung. Obscuration of the right hemidiaphragm at the CP angle, raising the possibility of a tiny right effusion. Heart and mediastinum: Normal heart size. Unremarkable mediastinal contours. Osseous structures: No acute abnormality. Other: None. IMPRESSION: Platelike atelectasis within the right midlung. Trace effusion on the right. Signed: Mandi Mahoney MD Report Verified Date/Time:12/01/2018 09:38:12 Reading Location: [facility] Radiology Reading Room Procedure Note Interface, External Ris In - 12/01/2018 9:40 AM CDT FINAL REPORT INDICATION: Pneumonia COMPARISON: None TECHNIQUE: Single frontal view of the chest. FINDINGS: Lungs and pleura: Platelike atelectasis within the right midlung. Obscuration of the right hemidiaphragm at the CP angle, raising the possibility of a tiny right effusion. Heart and mediastinum: Normal heart size. Unremarkable mediastinal contours. Osseous structures: No acute abnormality. Other: None. IMPRESSION: Platelike atelectasis within the right midlung. Trace effusion on the right. Signed: Mandi Mahoney MD Report Verified Date/Time: 12/01/2018 09:38:12 Reading Location: [facility] Radiology Reading Room Performing Organization Address City/State/Zipcode Phone Number [facility] Blood Culture - Routine (Right Venipuncture) (11/30/2018 11:26 PM CDT)Only the most recent of2 resultswithin the time period is included. Result No growth in 5 days [facility] Specimen Blood Performing Organization Address City/State/Zipcode Phone Number [facility] [address] [place] [address] CENTER Comprehensive metabolic panel (11/30/2018 11:26 PM CDT) Protein, Total 7.5 6.0 - 8.3 gm/dL [facility] Albumin 2.7 (L) 3.5 - 5.0 g/dL [facility] Alkaline Phosphatase 129 40 - 150 U/L [facility] Total Bilirubin 0.8 0.2 - 1.2 mg/dL [facility] Sodium 139 136 - 145 meq/L [facility] Potassium 4.3 3.5 - 5.1 meq/L [facility] Chloride 104 98 - 107 meq/L [facility] CO2 27 22 - 29 meq/L [facility] BUN 12 7 - 21 mg/dL [facility] Creatinine 0.68 0.57 - 1.25 mg/dL [facility] Glucose 138 (H) 70 - 105 mg/dL [facility] Calcium 9.2 8.4 - 10.2 mg/dL [facility] AST 15 5 - 34 U/L [facility] ALT 19 6 - 55 U/L [facility] EGFR 121Comment: ESTIMATED mL/min/1.73 sq m [facility] GFR IS NOT ACCURATE [facility] CREATININE CLEARANCE IN PREDICTING GLOMERULAR FILTRATION RATE. ESTIMATED GFR IS NOT APPLICABLE FOR DIALYSIS PATIENTS. Specimen Blood Performing Organization Address City/State/Zipcode Phone Number [facility] [address] [place] [address] CENTER after 12/26/2017 Insurance Payer Benefit Plan / Group Subscriber ID Type Phone Address [employer] AND [employer] xxxxxxxxx MEDICAID MEDICAID [facility] xxxxxxxxx Medicaid Advance Directives For more information, please contact:[facility] [place], [place] [phone] Code Status Date Activated Date Inactivated Comments Partial Code 12/03/2018 11:00 AM 12/04/2018 3:18 PM DNR but intubation OK for respiratory failure This code status was determined by: Patient Drug Protocol After Arrest Occurs? No Mechanical Ventilation with Intubation? Yes Bag/Mask? Yes Internal/External Pacemaker? No Transfer to Critical Care? Yes Chest Compressions? No Defibrillation/Cardioversion? No Full Code 11/30/2018 8:20 PM 12/03/2018 11:00 AM This code status was determined by: Patient
--- OUTSIDE RECORDS SUMMARY | 2018-12-27 16:59 | XMS REPORT | Continuity of Care Document ---
:1965 Author Organization [employer] Care Team Providers Name Role Phone [employer] Unavailable Unavailable Problems Problem Status Onset Classification Date Comments Source Date Reported SPONTANEOUS Active [facility] RIGHT 9 Medical HEMOTHORAX Center LARGE PLEURAL Active [facility] EFFUSION 9 Medical Center Pleural 10/08/2018 [facility] effusion, not Medical elsewhere Center classified PLEURAL Active [facility] EFFUSION, NOT Medical ELSEWHERE Center CLASSIFI Medications Medication Details Route Status Patient Ordering Order Source Instructions Provider Date naproxen 500 mg 500 mg=1 tab, Active [facility] oral tablet PO, BID, PRN 2019 Medical Pain, X 10 day, Center # 20 tab, 0 Refill(s), Pharmacy: [place] [id number] Acetaminophen 1,000 mg=2 tab, Active [place] 500 MG Oral PO, Q6H, 0 2018 Medical Tablet Refill(s) [place] Alprazolam 0.5 0.5 mg, 1 tab, No Longer [facility] MG Oral Tablet Route: PO, Drug Active 2018 Medical form: TAB, TID, Center Dosing Weight 90.455, kg, PRN as needed for anxiety, Start date: 10/02/18 13:43:00 CDT, Duration: 30 day, Stop date: 11/01/18 13:42:00 CDTNotes: With food or milk (Same as: Xanax) Naproxen 500 mg, 1 tab, No Longer [facility] Route: PO, Drug Active 2018 Medical form: TAB, Center Q12H, kg, Start date: 10/02/18 9:00:00 CDT, Duration: 30 day, Stop date: 10/31/18 21:00:00 CDTNotes: (Same as: Naprosyn) Take with food. gabapentin 300 mg, 1 cap, No Longer [facility] Route: PO, Drug Active 2018 Medical form: CAP, Q8H, Center kg, Start date: 10/02/18 8:00:00 CDT, Duration: 30 day, Stop date: 11/01/18 0:00:00 CDTNotes: (Same as: Neurontin) Iohexol 100 mL, Route: Inactive [facility] IVP, Drug Form: 2019 Medical SOLN, Dosing Center Weight 90.455, kg, ONCALL, STAT, Start date: 10/01/18 18:50:00 CDT, Duration: 1 doses or times, Dose=2.2ml/kg, Max [id number] -- "To be infused by Radiology Staff ONLY" Albuterol 0.833 3 mL, Route: No Longer [facility] MG/ML / NEB, Drug Form: Active 2019 Medical Ipratropium SOLN, Dosing Center [place] 0.167 Weight 90.455, MG/ML Inhalant kg, RQID, STAT, Solution Start date: [DuoNeb] 10/01/18 16:47:00 CDT, Duration: 30 day, Stop date: 10/31/18 15:00:00 CDTNotes: (Same as: Duoneb) Fentanyl 100 microgram, Inactive [facility] Route: IV, 2019 Medical ONCE, Dosing Center Weight 90.455, kg, Start date: 10/01/18 12:32:00 CDT, Stop date: 10/01/18 12:32:00 CDT Versed 4 mg, Route: Inactive [facility] IVP, ONCE, 2019 Medical Dosing Weight Center 90.455, kg, Start date: 10/01/18 12:32:00 CDT, Stop date: 10/01/18 12:32:00 CDT Lovenox 40 mg, 0.4 mL, No Longer [facility] Route: SUB-Q, Active 2019 Medical Drug form: INJ, Center [id number], Dosing Weight 90.455, kg, Start date: 09/30/18 17:00:00 CDT, Duration: 30 day, Stop date: 10/29/18 12:00:00 CDTNotes: (Same as: Lovenox) Albuterol 0.833 3 ml, Route: No Longer [place] MG/ML / NEB, Drug Form: Active 2019 Medical Ipratropium SOLN, Dosing Center [place] 0.167 Weight 90.455, MG/ML Inhalant kg, PRN, PRN Solution Respiratory [DuoNeb] Pathway, Start date: 09/30/18 16:16:00 CDT, Duration: 30 day, Stop date: 10/30/18 16:15:00 CDTNotes: (Same as: Duoneb) remove patch 1 patch, Route: No Longer [facility] TOP, Daily, Active 2018 Medical Drug form: [place] ERFILM, Start date: 09/30/18 13:00:00 CDT, Duration: 30 day, Stop date: 10/29/18 13:00:00 CDTNotes: Remove patch 12 hours after application each day. celecoxib 200 mg, 1 cap, No Longer [place] Route: PO, Drug Active 2019 Medical form: CAP, Center Q12H, kg, For patients LESS than 75 years old. Hold in all patients if CrCl Notes: NSAID. Please check indication. Not for seizure. (Same As: CeleBREX) Acetaminophen 1,000 mg, 2 No Longer [place] tab, Route: PO, Active 2019 Medical Drug form: TAB, Center Q6H, kg, Start date: 09/30/18 6:00:00 CDT, Duration: 30 day, Stop date: 10/30/18 0:00:00 CDTNotes: Max acetaminophen 4000 mg/day (4 gm/day). (Same as: Tylenol Extra Strength) Iohexol 75 mL, Route: Inactive [place] IVP, Drug Form: 2019 Medical SOLN, , Center ONCALL, STAT, Start date: 09/30/18 1:17:00 CDT, Duration: 1 doses or times, Dose=2.2ml/kg, Max [id number] -- "To be infused by Radiology Staff ONLY" Lidocaine 1 patch, Route: No Longer [place] Hydrochloride TOP, Q24H, Drug Active 2019 Medical 0.05 MG/MG form: FILM, Center Transdermal Start date: Patch 09/30/18 [Lidoderm] 1:00:00 CDT, Duration: 30 day, Stop date: 10/29/18 1:00:00 CDTNotes: . (Same as: Lidoderm) "Remove old patch before application of new patch" Enoxaparin 30 mg, 0.3 mL, Inactive [facility] Route: SUB-Q, 2019 Medical Drug form: INJ, Center [id number], , Start date: 09/30/18 1:00:00 CDT, Duration: 30 day, Stop date: 10/29/18 13:00:00 CDTNotes: (Same as: Lovenox) pregabalin 100 mg, 1 cap, No Longer [facility] Route: PO, Drug Active 2018 Medical form: CAP, Q8H, [facility], Priority: NOW, Start date: 09/30/18 0:01:00 CDT, Duration: 48 hr, Stop date: 10/02/18 0:00:00 CDTNotes: (Same as: Lyrica) Tramadol 100 mg, 2 tab, No Longer [facility] Route: PO, Drug Active 2018 Medical form: TAB, Q6H, [facility], Priority: NOW, Start date: 09/30/18 0:01:00 CDT, Duration: 30 day, Stop date: 10/30/18 0:00:00 CDTNotes: Not to exceed 400mg/day. (Same As: Ultram) Oxycodone 5 mg, 1 tab, No Longer [facility] Hydrochloride 5 Route: PO, Drug Active 2018 Medical MG Oral Tablet form: TAB, Q4H, [facility], PRN Pain Score 4-6, Start date: 09/30/18 0:01:00 CDT, Duration: 30 day, Stop date: 10/30/18 0:00:00 CDTNotes: (Same as: Roxicodone) Ketorolac 30 mg, Route: Inactive [facility] IVP, ONCE, , 2019 Medical Start date: [place] 09/30/18 0:01:00 CDT, Stop date: 09/30/18 0:01:00 CDT Allergies, Adverse Reactions, Alerts Substance Category Reaction Severity Reaction Status Date Comments Source type Reported No Known Assertion Drug [facility] Medication allergy Medical Allergies Center Immunizations No Data Provided for This Section Results Order Name Results Value Reference Date Interpretation Comments Source Range HEMATOLOGY Hct 35.9 42.0 - 10/03 [facility] 54.0 /2019 Medical Center HEMATOLOGY Hgb 11.9 14.0 - 10/03 [facility] 18.0 /2019 [facility] HEMATOLOGY WBC 12.5 3.7 - 10.4 10/02 [facility] HEMATOLOGY MCHC 33.6 32.0 - 10/02 [place] 36.0 [facility] HEMATOLOGY MCH 31.0 27.0 - 10/02 [place] 31.0 [facility] HEMATOLOGY Hgb 11.6 14.0 - 10/02 [place] 18.0 [facility] HEMATOLOGY RBC 3.76 4.70 - 10/02 [place] 6.10 [facility] HEMATOLOGY MCV 92.1 80.0 - 10/02 [place] 94.0 2019 [facility] HEMATOLOGY Hct 34.6 42.0 - 10/02 [place] 54.0 [facility] HEMATOLOGY Platelet 359 133 - 450 10/02 [facility] HEMATOLOGY RDW 13.1 11.5 - 10/02 [place] 14.5 [facility] HEMATOLOGY MPV 8.2 7.4 - 10.4 10/02 [facility] HEMATOLOGY Eosinophils 1.0 0.0 - 0.5 10/02 [facility] HEMATOLOGY Neutrophils 8.9 1.5 - 8.1 10/02 [facility] HEMATOLOGY Basophils 0.6 0.0 - 1.0 10/02 [facility] HEMATOLOGY Lymphocytes 15.1 20.0 - 10/02 [facility] 40.0 [facility] HEMATOLOGY Segs 71.0 45.0 - 10/02 [place] 75.0 [facility] HEMATOLOGY Monocytes 5.6 2.0 - 12.0 10/02 /2018 [facility] HEMATOLOGY Basophils # 0.1 0.0 - 0.2 10/02 [facility] HEMATOLOGY Monocytes # 0.7 0.0 - 0.8 10/02 /2018 [facility] HEMATOLOGY Lymphocytes 1.9 1.0 - 5.5 10/02 [facility] /2018 [facility] HEMATOLOGY Eosinophils 7.7 0.0 - 4.0 10/02 [facility]2018 [facility] HEMATOLOGY Segs 77.8 45.0 - 10/01 [place] 75.0 2019 [facility] HEMATOLOGY Lymphocytes 13.6 20.0 - 10/01 [place] 40.0 /2019 [facility] HEMATOLOGY Lymphocytes 2.6 1.0 - 5.5 10/01 [facility] /2019 [facility] HEMATOLOGY Basophils 0.4 0.0 - 1.0 10/01 [facility] HEMATOLOGY Eosinophils 2.3 0.0 - 4.0 10/01 [facility] HEMATOLOGY Basophils # 0.1 0.0 - 0.2 10/01 [facility] HEMATOLOGY Eosinophils 0.4 0.0 - 0.5 10/01 [place] # /2018 [facility] HEMATOLOGY Monocytes 5.9 2.0 - 12.0 10/01 [facility] HEMATOLOGY Neutrophils 15.0 1.5 - 8.1 10/01 [place] # /2019 [facility] HEMATOLOGY Monocytes # 1.1 0.0 - 0.8 10/01 [facility] HEMATOLOGY Hct 38.4 42.0 - 10/01 [place] 54.0 [facility] HEMATOLOGY MPV 8.6 7.4 - 10.4 10/01 [facility] HEMATOLOGY Hgb 12.8 14.0 - 10/01 [place] 18.0 [facility] HEMATOLOGY Platelet 443 133 - 450 10/01 [facility] HEMATOLOGY RDW 13.2 11.5 - 10/01 [place] 14.5 [facility] HEMATOLOGY RBC 4.15 4.70 - 10/01 [place] 6.10 [facility] HEMATOLOGY MCHC 33.4 32.0 - 10/01 [place] 36.0 2019 [facility] HEMATOLOGY MCH 30.9 27.0 - 10/01 [place] 31.0 [facility] HEMATOLOGY MCV 92.5 80.0 - 10/01 [place] 94.0 [facility] HEMATOLOGY WBC 19.2 3.7 - 10.4 10/01 [facility] [place] [id number] 09/30 [facility] BODY FLUIDS Nucleated 775 09/30 [facility] Cells BF /2018 [facility] BODY FLUIDS Lymph BF 12 09/30 [facility] BODY FLUIDS Neutrophils 86 09/30 [place] BF [facility] BODY FLUIDS Clarity BF Marked Clear 09/30 [place] *ABN* /2018 [facility] (09/30/18 5:48 AM) Center BODY FLUIDS CellCnt BF Pleural 09/30 [place] Type (09/30/18 5:48 AM) [facility] BODY FLUIDS Color BF Red Colorless 09/30 [place] *ABN* /2018 Medical (09/30/18 5:48 AM) Center BODY FLUIDS Eos BF 1 09/30 [facility] BODY FLUIDS Macrophage 1 09/30 [facility] BF [facility] BODY FLUIDS Supernat BF Red Colorless 09/30 [facility] *ABN* [facility] (09/30/18 5:48 AM) [place] BODY FLUIDS Alb BF Type Pleural 09/30 [facility] *NA* [facility] (09/30/18 5:48 AM) [place] BODY FLUIDS Albumin BF 2.1 09/30 [facility] BODY FLUIDS Prot BF Type Pleural 09/30 [facility] *NA* [facility] (09/30/18 5:48 AM) [place] BODY FLUIDS Protein BF 4.9 09/30 [facility] BODY FLUIDS pH BF 8.00 09/30 [facility] BODY FLUIDS pH BF Type Pleural 09/30 [facility] (09/30/18 5:48 AM) [facility] BODY FLUIDS LDH BF 2891 09/30 [facility] BODY FLUIDS LDH BF Type Pleural 09/30 [facility] (09/30/18 5:48 AM) [facility] BODY FLUIDS Glucose BF 121 09/30 [facility] BODY FLUIDS Gluc BF Type Pleural 09/30 [facility] *NA* [facility] (09/30/18 5:48 AM) [place] Gram Stain Gram Stain 09/30 [facility] Report Medical By: [facility] Culture: No Growth 09/30 [facility] Aspirate/ [facility] Fluid/Tissue CHEM PANEL Total 7.6 6.4 - 8.4 09/30 [facility] CHEM PANEL LDH 433 98 - 192 09/30 [place] [facility] CHEM PANEL eGFR 99 09/30 Result [...] PANEL Potassium 4.7 3.5 - 5.1 09/30 [facility] Lvl /2018 [facility] CHEM PANEL Chloride Lvl 105 95 - 109 09/[address] CHEM PANEL CO2 24 24 - 32 09/[address] CHEM PANEL Calcium Lvl 9.0 8.5 - 10.5 09/[address] CHEM PANEL Glucose Lvl 174 70 - 99 09/[address] CHEM PANEL AGAP 15.7 10.0 - 09/30 [facility] 20.0 [facility] CHEM PANEL BUN 16 7 - 22 09/[address] CHEM PANEL Creatinine 0.84 0.50 - 09/30 [facility] Lvl 1.40 [facility] CHEM PANEL Sodium Lvl 140 135 - 145 09/30 [facility]2018 [facility] HEMATOLOGY MCHC 33.6 32.0 - 09/30 [facility] 36.0 [facility] HEMATOLOGY MCH 31.2 27.0 - 09/30 [facility] 31.0 [facility] HEMATOLOGY WBC 18.3 3.7 - 10.4 09/30 [facility]2018 [facility] HEMATOLOGY MCV 92.8 80.0 - 09/30 [facility] 94.0 [facility] HEMATOLOGY RBC 4.31 4.70 - 09/30 [facility] 6.10 [facility] HEMATOLOGY MPV 8.5 7.4 - 10.4 09/[address] HEMATOLOGY Platelet 363 133 - 450 09/[address] HEMATOLOGY RDW 13.1 11.5 - 09/30 [facility] 14.5 [facility] Pathology Reports No Data Provided for This Section Diagnostic Reports Report Value Date Source Chest 1view DX EXAM: XR CHEST 1 VIEW 10/03/2018 [facility] Medical DATE: 10/03/2018 0035 hours Center INDICATION: [...] DX EXAM: XR CHEST 1 VIEW 10/02/2018 [facility] DATE: 10/02/2018 4:15 PM CDT Center INDICATION: - 4H post CT removal COMPARISON: 10/02/2018 TECHNIQUE: AP chest FINDINGS/IMPRESSION: Compared to the prior examination there remains a tiny right apical pneumothorax. There is bilateral pulmonary opacities compatible with pneumonia or pulmonary edema. Chest 1view DX EXAM: XR CHEST 1 VIEW 10/02/2018 [facility] DATE: 10/02/2018 0358 hours. Center INDICATION: Cough. [...] Pulmonary EXAM: CTA CHEST WITH CONTRAST 10/01/2018 [facility] Embolism CTA DATE: 10/01/2018 17:56 CDT Center [...] DX EXAM: XR CHEST 1 VIEW 10/01/2018 [facility] DATE: 10/01/2018 16:45 [facility] Center INDICATION: - shortness of [...] DX EXAM: XR CHEST 1 VIEW 10/01/2018 [facility] DATE: 10/01/2018 10:58 T Center INDICATION: - [...] 1view DX EXAM: Chest 1view DX 09/30/2018 [facility] DATE: 09/30/2018 3:20 CDT Center INDICATION: - [...] CT EXAM: CT CHEST WITH CONTRAST 09/30/2018 [facility] DATE: 09/30/2018 0115 hours Center INDICATION: - [...] DX EXAM: XR CHEST 1 VIEW 09/29/2018 [facility] Medical DATE: 09/29/2018 at 2306 hours Center INDICATION: - SOB, after chest tube placement ADDITIONAL INFORMATION: 'tx from [facility] for spontaneous RIGHT sided hemothorax. chest [...] Source Temperature Oral (F) 98.6 F 10/07/2018 [facility] Respitory Rate 18 10/07/2018 [facility] Respitory Rate 18 10/06/2018 [facility] Systolic (mm Hg) 124 10/06/2018 [facility] Diastolic (mm Hg) 86 10/06/2018 [facility] Heart Rate 101 10/06/2018 [facility] Temperature Oral (F) 98.2 F 10/06/2018 [facility] Respitory Rate 17 10/06/2018 [facility] Systolic (mm Hg) 130 10/06/2018 [facility] Diastolic (mm Hg) 88 10/06/2018 [facility] Heart Rate 99 10/06/2018 [facility] Temperature Oral (F) 99.1 F 10/06/2018 [facility] Heart Rate 98 10/06/2018 [facility] Systolic (mm Hg) 152 10/06/2018 [facility] Diastolic (mm Hg) 78 10/06/2018 [facility] Height 185.42 cm 09/30/2018 [facility] Weight 90.455 09/30/2018 [facility] BMI Calculated 26.31 09/30/2018 [facility] Encounters Location Location Encounter Encounter Reason Attending ADM DC Status Source Details Type Number For Provider Date Date Visit [facility] [id number] [facility]ias Chong 09/29 [facility] Procedures No Data Provided for This Section Assessment and Plan Assessment and Plan Date Source Extracted from:Title: Pulmonology Initital Consult Note 10/07/2018 [facility] Author: Abbey Meyers MD Date: 10/01/18 53 [...] Ayala. Abbey Meyers MD PGY-2, Internal Medicine [facility] Pulmonary/Critical Care Attending Note I have seen [...] Will proceed with diagnostic bronchoscopy with interventional classification and treatment director. Extracted from:Title: History and Physical Author: Yaya [...] History Date Source Social History TypeResponse 09/30/2018 [facility] Smoking Status Never smoker; Exposure to Tobacco Smoke None; Cigarette Smoking Last 365 Days No; Reg Smoking Cessation Counseling No entered on: 09/30/18 Family History No Data Provided for This Section Advance Directives No Data Provided for This Section Functional Status No Data Provided for This Section
--- OUTSIDE RECORDS SUMMARY | 2018-12-27 17:00 | XMS REPORT ---
:1965 [facility] [address] [place] [address] Care Team Providers Name Role Phone RENZO ISIDRO Unavailable Unavailable Problems This patient has no known problems. Allergies, Adverse Reactions, Alerts This patient has no known allergies or adverse reactions. Medications This patient has no known medications. Encounters Start End Encounter Admission Attending Care Care Encounter Date/Time Date/Time Type Type Clinicians Facility Department ID 2018-10-02 2018-09-30 Inpatient [facility] [id number] 10:10:00 00:06:00 Results Test Description Test Time Test Comments Text Results Atomic Results Result Comments BLOOD CULTURE 2018-12-06 02:00:00 Test Item Value Reference Range Comments CULTURE (BEAKER) (test adxk=7010) No growth in 5 days BLOOD [id number] 02:00:00 Test Item Value Reference Range Comments CULTURE (BEAKER) (test tsbp=1708) No growth in 5 days BASIC METABOLIC [id number] 07:07:00 Test Item Value Reference Range Comments SODIUM (BEAKER) (test 137 meq/L 136-145 hwch=942) POTASSIUM (BEAKER) (test 4.2 meq/L 3.5-5.1 uwng=041) CHLORIDE (BEAKER) (test 104 meq/L 98-107 ulkp=997) CO2 (BEAKER) (test 26 meq/L 22-29 fezv=117) BLOOD UREA NITROGEN 10 mg/dL 7-21 (BEAKER) (test mmru=843) CREATININE (BEAKER) (test 0.57 mg/dL 0.57-1.25 mijn=286) GLUCOSE RANDOM (BEAKER) 142 mg/dL 70-105 (test ipce=516) CALCIUM (BEAKER) (test 9.1 mg/dL 8.4-10.2 yotn=602) EGFR (BEAKER) (test 148 mL/min/1.73 sq m ESTIMATED GFR IS NOT beeq=8942) ACCURATE CREATININE CLEARANCE IN PREDICTING GLOMERULAR FILTRATION RATE. ESTIMATED GFR IS NOT APPLICABLE FOR DIALYSIS PATIENTS. VANCOMYCIN LEVEL, [id number] 06:51:00 Test Item Value Reference Range Comments VANCOMYCIN TROUGH (BEAKER) (test zfyx=275) 4.7 ug/mL 10.0-20.0 Draw 30 min prior to scheduled dose, HOLD if level > 20 mcg/mL, inform MD.CBC W/PLT COUNT & AUTO [id number] 05:15:00 Test Item Value Reference Range Comments WHITE BLOOD CELL COUNT (BEAKER) (test ddgn=612) 35.1 K/ L 3.5-10.5 RED BLOOD CELL COUNT (BEAKER) (test ptsf=522) 3.25 M/ L 4.63-6.08 HEMOGLOBIN (BEAKER) (test fcpv=352) 9.1 GM/DL 13.7-17.5 HEMATOCRIT (BEAKER) (test ahfo=620) 29.8 % 40.1-51.0 MEAN CORPUSCULAR VOLUME (BEAKER) (test jpus=860) 91.7 fL 79.0-92.2 MEAN CORPUSCULAR HEMOGLOBIN (BEAKER) (test 28.0 pg 25.7-32.2 geic=698) MEAN CORPUSCULAR HEMOGLOBIN CONC (BEAKER) (test 30.5 GM/DL 32.3-36.5 lzxa=041) RED CELL DISTRIBUTION WIDTH (BEAKER) (test 13.9 % 11.6-14.4 uzmq=169) PLATELET COUNT (BEAKER) (test pdjk=813) 518 K/CU MM 150-450 MEAN PLATELET VOLUME (BEAKER) (test wwes=282) 9.8 fL 9.4-12.4 NUCLEATED RED BLOOD CELLS (BEAKER) (test 0 /100 WBC 0-0 mnpr=437) NEUTROPHILS RELATIVE PERCENT (BEAKER) (test 87 % ebdc=695) LYMPHOCYTES RELATIVE PERCENT (BEAKER) (test 6 % tcsm=168) MONOCYTES RELATIVE PERCENT (BEAKER) (test 4 % mvld=763) EOSINOPHILS RELATIVE PERCENT (BEAKER) (test 0 % kezt=661) BASOPHILS RELATIVE PERCENT (BEAKER) (test 0 % afia=576) NEUTROPHILS ABSOLUTE COUNT (BEAKER) (test 30.59 K/ L 1.78-5.38 jiqj=176) LYMPHOCYTES ABSOLUTE COUNT (BEAKER) (test 2.14 K/ L 1.32-3.57 mexk=536) MONOCYTES ABSOLUTE COUNT (BEAKER) (test 1.38 K/ L 0.30-0.82 jerc=724) EOSINOPHILS ABSOLUTE COUNT (BEAKER) (test 0.02 K/ L 0.04-0.54 jxgs=479) BASOPHILS ABSOLUTE COUNT (BEAKER) (test 0.06 K/ L 0.01-0.08 qqce=353) IMMATURE GRANULOCYTES-RELATIVE PERCENT (BEAKER) 3 % 0-1 (test jjfw=2018) POCT-GLUCOSE [id number] 21:41:00 Test Item Value Reference Range Comments POC-GLUCOSE METER (BEAKER) 243 mg/dL 70-[address] [facility] [address] [facility] (test wnyd=0594) [facility] [address] BASIC METABOLIC [id number] 06:17:00 Test Item Value Reference Range Comments SODIUM (BEAKER) (test 138 meq/L 136-145 unmm=703) POTASSIUM (BEAKER) (test 4.1 meq/L 3.5-5.1 eoya=862) CHLORIDE (BEAKER) (test 105 meq/L 98-107 spuj=706) CO2 (BEAKER) (test 26 meq/L 22-29 wads=876) BLOOD UREA NITROGEN 11 mg/dL 7-21 (BEAKER) (test cxhx=425) CREATININE (BEAKER) (test 0.58 mg/dL 0.57-1.25 rbyp=028) GLUCOSE RANDOM (BEAKER) 122 mg/dL 70-105 (test ldvh=804) CALCIUM (BEAKER) (test 8.8 mg/dL 8.4-10.2 kcrf=514) EGFR (BEAKER) (test 145 mL/min/1.73 sq m ESTIMATED GFR IS NOT awai=5733) ACCURATE CREATININE CLEARANCE IN PREDICTING GLOMERULAR FILTRATION RATE. ESTIMATED GFR IS NOT APPLICABLE FOR DIALYSIS PATIENTS. CBC W/PLT COUNT & AUTO [id number] 05:35:00 Test Item Value Reference Range Comments WHITE BLOOD CELL COUNT (BEAKER) (test pjrf=191) 32.3 K/ L 3.5-10.5 RED BLOOD CELL COUNT (BEAKER) (test gupq=980) 3.28 M/ L 4.63-6.08 HEMOGLOBIN (BEAKER) (test wkqy=535) 9.2 GM/DL 13.7-17.5 HEMATOCRIT (BEAKER) (test oxdw=585) 29.9 % 40.1-51.0 MEAN CORPUSCULAR VOLUME (BEAKER) (test bflw=646) 91.2 fL 79.0-92.2 MEAN CORPUSCULAR HEMOGLOBIN (BEAKER) (test 28.0 pg 25.7-32.2 axzr=672) MEAN CORPUSCULAR HEMOGLOBIN CONC (BEAKER) (test 30.8 GM/DL 32.3-36.5 pimf=260) RED CELL DISTRIBUTION WIDTH (BEAKER) (test 13.7 % 11.6-14.4 syva=587) PLATELET COUNT (BEAKER) (test kbli=661) 506 K/CU MM 150-450 MEAN PLATELET VOLUME (BEAKER) (test xnpr=107) 9.7 fL 9.4-12.4 NUCLEATED RED BLOOD CELLS (BEAKER) (test 0 /100 WBC 0-0 gcvk=202) NEUTROPHILS RELATIVE PERCENT (BEAKER) (test 90 % umcf=614) LYMPHOCYTES RELATIVE PERCENT (BEAKER) (test 5 % ltbk=263) MONOCYTES RELATIVE PERCENT (BEAKER) (test 3 % tiay=746) EOSINOPHILS RELATIVE PERCENT (BEAKER) (test 0 % wnez=364) BASOPHILS RELATIVE PERCENT (BEAKER) (test 0 % bghq=441) NEUTROPHILS ABSOLUTE COUNT (BEAKER) (test 29.05 K/ L 1.78-5.38 xmeu=347) LYMPHOCYTES ABSOLUTE COUNT (BEAKER) (test 1.65 K/ L 1.32-3.57 nbwy=625) MONOCYTES ABSOLUTE COUNT (BEAKER) (test 0.93 K/ L 0.30-0.82 epna=075) EOSINOPHILS ABSOLUTE COUNT (BEAKER) (test 0.01 K/ L 0.04-0.54 azem=818) BASOPHILS ABSOLUTE COUNT (BEAKER) (test 0.05 K/ L 0.01-0.08 rrxv=068) IMMATURE GRANULOCYTES-RELATIVE PERCENT (BEAKER) 2 % 0-1 (test pkgb=2466) POCT-GLUCOSE [id number] 21:13:00 Test Item Value Reference Range Comments POC-GLUCOSE METER (BEAKER) 167 mg/dL 70-110 TESTED AT [address] (test espb=9882) [facility] [address] RAD, SHOULDER, COMPLETE (MIN 2 VIEWS), [id number] 14:32:00Reason for exam:-& gt;concern for rotator cuff [...] MDReport Verified Date/Time: 12/02/2018 14:32:19 Reading Location: [facility] Radiology Reading Room Electronically signed by: MANDI MAHONEY MD on 2018 02:32 PMPOCT-GLUCOSE [id number] 12:29:00 Test Item Value Reference Range Comments POC-GLUCOSE METER (BEAKER) 178 mg/dL 70-110 TESTED AT [address] (test mkoz=3887) [place] [id number] POCT-GLUCOSE [id number] 12:29:00 Test Item Value Reference Range Comments POC-GLUCOSE METER (BEAKER) 185 mg/dL 70-110 TESTED AT [address] (test bhsf=4933) [place] [id number] VANCOMYCIN LEVEL, [id number] 12:22:00 Test Item Value Reference Range Comments VANCOMYCIN TROUGH (BEAKER) (test eadu=995) 7.4 ug/mL 10.0-20.0 Draw 30 min prior to scheduled dose, HOLD if level > 20 mcg/mL, inform .CBC W/PLT COUNT & AUTO [id number] 10:34:00 Test Item Value Reference Range Comments WHITE BLOOD CELL COUNT (BEAKER) (test pzls=695) 33.1 K/ L 3.5-10.5 RED BLOOD CELL COUNT (BEAKER) (test nooo=265) 3.32 M/ L 4.63-6.08 HEMOGLOBIN (BEAKER) (test qjrp=777) 9.2 GM/DL 13.7-17.5 HEMATOCRIT (BEAKER) (test pwxb=148) 30.2 % 40.1-51.0 MEAN CORPUSCULAR VOLUME (BEAKER) (test ctwh=450) 91.0 fL 79.0-92.2 MEAN CORPUSCULAR HEMOGLOBIN (BEAKER) (test 27.7 pg 25.7-32.2 dvvr=799) MEAN CORPUSCULAR HEMOGLOBIN CONC (BEAKER) (test 30.5 GM/DL 32.3-36.5 zydp=676) RED CELL DISTRIBUTION WIDTH (BEAKER) (test 13.7 % 11.6-14.4 qtws=183) PLATELET COUNT (BEAKER) (test hmip=368) 525 K/CU MM 150-450 MEAN PLATELET VOLUME (BEAKER) (test nrxz=899) 9.5 fL 9.4-12.4 NUCLEATED RED BLOOD CELLS (BEAKER) (test 0 /100 WBC 0-0 cxgc=421) (CELLAVISION MANUAL DIFF)2018-12-02 10:34:00 Test Item Value Reference Range Comments NEUTROPHILS - REL (CELLAVISION)(BEAKER) (test 95 % ctbn=1335) LYMPHOCYTES - REL (CELLAVISION)(BEAKER) (test 5 % tbns=1381) NEUTROPHILS - ABS (CELLAVISION)(BEAKER) (test 31.45 K/ul 1.78-5.38 mqad=4913) LYMPHOCYTES - ABS (CELLAVISION)(BEAKER) (test 1.66 K/ul 1.32-3.57 fflz=4455) TOTAL COUNTED (BEAKER) (test bcdg=3094) 100 WBC MORPHOLOGY (BEAKER) (test xyzm=891) Normal LARGE PLT(BEAKER) (test faux=3512) Present ANISOCYTOSIS (BEAKER) (test pstb=400) 1+ few MICROCYTES (BEAKER) (test kayd=552) 1+ few POIKILOCYTES (BEAKER) (test zffw=660) 1+ few SPHEROCYTES (BEAKER) (test tkay=407) 1+ few ELLIPTOCYTES (BEAKER) (test bsow=932) 1+ few OVALOCYTES (BEAKER) (test htjo=181) 1+ few ARTIFACT (CELLAVISION)(BEAKER) (test qkuw=5737) Present PLATELET CONCENTRATION (CELLAVISION)(BEAKER) Increased (test sbhc=1214) Received comment: User comments: Slide comments:URINALYSIS W/ REFLEX URINE [id number] 09:54:00 Test Item Value Reference Range Comments COLOR (BEAKER) (test ilpr=243) Yellow CLARITY (BEAKER) (test uybd=560) Clear SPECIFIC GRAVITY UA (BEAKER) (test vrau=915) 1.016 1.001-1.035 PH UA (BEAKER) (test wvtr=146) 6.5 5.0-8.0 PROTEIN UA (BEAKER) (test mktt=734) Negative Negative GLUCOSE UA (BEAKER) (test rzkl=359) Negative Negative KETONES UA (BEAKER) (test nsze=604) Negative Negative BILIRUBIN UA (BEAKER) (test xbas=364) Negative Negative BLOOD UA (BEAKER) (test brbp=296) Negative Negative NITRITE UA (BEAKER) (test bmwm=266) Negative Negative LEUKOCYTE ESTERASE UA (BEAKER) (test udkr=315) Negative Negative UROBILINOGEN UA (BEAKER) (test glgz=814) 2.0 mg/dL 0.2-1.0 RBC UA (BEAKER) (test btsa=722) 0 /HPF WBC UA (BEAKER) (test fogp=538) 1 /HPF MUCUS (BEAKER) (test iibf=1733) Occasional SOURCE(BEAKER) (test bhff=5178) MR, BRAIN, [id number] 09:26:00FINAL REPORT MR, BRAIN , WITH \T\ [...] Laura Verified Date/Time: 12/02/2018 09:26:37 Reading Location: [address] Neuro Reading Room BASIC METABOLIC [id number] 05:00:00 Test Item Value Reference Range Comments SODIUM (BEAKER) (test 138 meq/L 136-145 xztd=985) POTASSIUM (BEAKER) (test 4.0 meq/L 3.5-5.1 zviv=257) CHLORIDE (BEAKER) (test 105 meq/L 98-107 abty=594) CO2 (BEAKER) (test 24 meq/L 22-29 rcsv=828) BLOOD UREA NITROGEN 12 mg/dL 7-21 (BEAKER) (test avqu=191) CREATININE (BEAKER) (test 0.60 mg/dL 0.57-1.25 mlck=597) GLUCOSE RANDOM (BEAKER) 137 mg/dL 70-105 (test qzwb=438) CALCIUM (BEAKER) (test 8.6 mg/dL 8.4-10.2 qrep=083) EGFR (BEAKER) (test 140 mL/min/1.73 sq m ESTIMATED GFR IS NOT twwa=6696) ACCURATE CREATININE CLEARANCE IN PREDICTING GLOMERULAR FILTRATION RATE. ESTIMATED GFR IS NOT APPLICABLE FOR DIALYSIS PATIENTS. POCT-GLUCOSE [id number] 21:48:00 Test Item Value Reference Range Comments POC-GLUCOSE METER (BEAKER) 175 mg/dL 70-[address] [facility] [address] [facility] (test kqfi=8580) [facility] [address] POCT-GLUCOSE [id number] 17:34:00 Test Item Value Reference Range Comments POC-GLUCOSE METER (BEAKER) 130 mg/dL 70-[address] [facility] [address] [facility] (test rbzm=6694) [facility] [address] CBC W/PLT COUNT & AUTO [id number] 11:37:00 Test Item Value Reference Range Comments WHITE BLOOD CELL COUNT (BEAKER) (test tpij=406) 28.7 K/ L 3.5-10.5 RED BLOOD CELL COUNT (BEAKER) (test oxdf=405) 3.24 M/ L 4.63-6.08 HEMOGLOBIN (BEAKER) (test qvlo=794) 9.1 GM/DL 13.7-17.5 HEMATOCRIT (BEAKER) (test wxhm=235) 29.8 % 40.1-51.0 MEAN CORPUSCULAR VOLUME (BEAKER) (test osxb=836) 92.0 fL 79.0-92.2 MEAN CORPUSCULAR HEMOGLOBIN (BEAKER) (test 28.1 pg 25.7-32.2 qdpm=151) MEAN CORPUSCULAR HEMOGLOBIN CONC (BEAKER) (test 30.5 GM/DL 32.3-36.5 tvxi=799) RED CELL DISTRIBUTION WIDTH (BEAKER) (test 13.7 % 11.6-14.4 zbnd=258) PLATELET COUNT (BEAKER) (test mysx=880) 443 K/CU MM 150-450 MEAN PLATELET VOLUME (BEAKER) (test ocua=766) 9.5 fL 9.4-12.4 NUCLEATED RED BLOOD CELLS (BEAKER) (test 0 /100 WBC 0-0 ihry=661) (CELLAVISION MANUAL DIFF)2018-12-01 11:37:00 Test Item Value Reference Range Comments NEUTROPHILS - REL (CELLAVISION)(BEAKER) (test 83 % yqlk=2064) LYMPHOCYTES - REL (CELLAVISION)(BEAKER) (test 13 % sakb=4323) MONOCYTES - REL (CELLAVISION)(BEAKER) (test 3 % caiu=7809) BANDS - REL (CELLAVISION)(BEAKER) (test 1 % 0-10 sypz=3615) NEUTROPHILS - ABS (CELLAVISION)(BEAKER) (test 23.82 K/ul 1.78-5.38 qdcs=1149) LYMPHOCYTES - ABS (CELLAVISION)(BEAKER) (test 3.73 K/ul 1.32-3.57 oeil=2617) MONOCYTES - ABS (CELLAVISION)(BEAKER) (test 0.86 K/uL 0.30-0.82 kbtw=9437) BANDS - ABS (CELLAVISION)(BEAKER) (test 0.29 K/uL 0.00-0.80 klpm=3696) TOTAL COUNTED (BEAKER) (test ctxk=4108) 100 WBC MORPHOLOGY (BEAKER) (test lmkr=615) Normal PLT MORPHOLOGY (BEAKER) (test ddoe=363) Normal ANISOCYTOSIS (BEAKER) (test ubme=506) 1+ few MICROCYTES (BEAKER) (test xauu=854) 1+ few ARTIFACT (CELLAVISION)(BEAKER) (test iycb=5753) Present PLATELET CONCENTRATION (CELLAVISION)(BEAKER) Adequate (test hwjz=7151) Received comment: User comments: Slide comments:RAD, CHEST, 1 VIEW, NON [id number] 09:38:00Reason for exam:->PneumoniaShould this be performed at [...] MDRmike Verified Date/Time: 12/01/2018 09:38:12 Reading Location: [facility] Radiology Reading Room POCT-GLUCOSE [id number] 07:57:00 Test Item Value Reference Range Comments POC-GLUCOSE METER (BEAKER) 114 mg/dL 70-[address] [facility] [address] [facility] (test jiiw=7800) [facility] [address] BASIC METABOLIC [id number] 06:35:00 Test Item Value Reference Range Comments SODIUM (BEAKER) (test 138 meq/L 136-145 stki=119) POTASSIUM (BEAKER) (test 4.3 meq/L 3.5-5.1 flnk=519) CHLORIDE (BEAKER) (test 107 meq/L 98-107 cigq=170) CO2 (BEAKER) (test 25 meq/L 22-29 rrvk=708) BLOOD UREA NITROGEN 13 mg/dL 7-21 (BEAKER) (test arle=296) CREATININE (BEAKER) (test 0.59 mg/dL 0.57-1.25 qdmf=702) GLUCOSE RANDOM (BEAKER) 137 mg/dL 70-105 (test vtov=752) CALCIUM (BEAKER) (test 8.5 mg/dL 8.4-10.2 nicg=564) EGFR (BEAKER) (test 143 mL/min/1.73 sq m ESTIMATED GFR IS NOT gyvz=5721) ACCURATE CREATININE CLEARANCE IN PREDICTING GLOMERULAR FILTRATION RATE. ESTIMATED GFR IS NOT APPLICABLE FOR DIALYSIS PATIENTS. COMPREHENSIVE METABOLIC [id number] 01:01:00 Test Item Value Reference Range Comments TOTAL PROTEIN (BEAKER) 7.5 gm/dL 6.0-8.3 (test rlvm=675) ALBUMIN (BEAKER) (test 2.7 g/dL 3.5-5.0 geua=3310) ALKALINE PHOSPHATASE 129 U/L 40-150 (BEAKER) (test wyhs=769) BILIRUBIN TOTAL (BEAKER) 0.8 mg/dL 0.2-1.2 (test guuf=007) SODIUM (BEAKER) (test 139 meq/L 136-145 skhl=780) POTASSIUM (BEAKER) (test 4.3 meq/L 3.5-5.1 lhtc=498) CHLORIDE (BEAKER) (test 104 meq/L 98-107 pqii=676) CO2 (BEAKER) (test 27 meq/L 22-29 iwtd=901) BLOOD UREA NITROGEN 12 mg/dL 7-21 (BEAKER) (test umtj=808) CREATININE (BEAKER) (test 0.68 mg/dL 0.57-1.25 tano=106) GLUCOSE RANDOM (BEAKER) 138 mg/dL 70-105 (test ezmg=041) CALCIUM (BEAKER) (test 9.2 mg/dL 8.4-10.2 bdfc=637) AST (SGOT) (BEAKER) (test 15 U/L 5-34 sfhu=555) ALT (SGPT) (BEAKER) (test 19 U/L 6-55 avys=734) EGFR (BEAKER) (test 121 mL/min/1.73 sq ESTIMATED GFR IS NOT onew=4558) m ACCURATE CREATININE CLEARANCE IN PREDICTING GLOMERULAR FILTRATION RATE. ESTIMATED GFR IS NOT APPLICABLE FOR DIALYSIS PATIENTS.
[2018-12-27] MEDS ORDERED: HYDROMORPHONE HCL 2 MG/ML inj IV PRN (17:04)
[2018-12-27] MEDS ORDERED: ACETAMINOPHEN 650MG/RECT SUPP PR PRN (17:04)
[2018-12-27] MEDS ORDERED: ATROPINE 1% OPTH DROPS 5ML SL PRN (17:04)
[2018-12-27] MEDS ORDERED: LORazepam 2 MG/ML VIAL IV PRN (17:04)
[2018-12-27] MEDS ORDERED: PROMETHAZINE 25 MG/ML VIAL IV PRN (17:04)
[2018-12-27] MEDS ORDERED: MORPHINE 2 MG/ML SYR IV PRN (17:04)
[2018-12-27 17:09] VITALS: O2SAT 98; BMI 21.3
[2018-12-27 17:40] VITALS: BP 107/73; TEMP 100.1
[2018-12-27] MEDS ORDERED: SCOPOLAMINE HYDROBROMIDE PATCH TD SCH (18:00)
[2018-12-27] MEDS ORDERED: ALBUTEROL 2.5 MG/3 ML NEB SOL NEB PRN (18:17)
[2018-12-27] MEDS ORDERED: IPRATROPIUM BROM 0.5MG/2.5ML IH PRN (18:17)
[2018-12-27] MEDS ORDERED: levETIRAcetam 1,500 MG in NA CHLORIDE 0.9% 100 ML IV SCH (21:00)
== END 2018-12-27 19:33 | disposition expired | DRG 951 ==
LOC: 2ND 16:41
PROVIDERS: ADMIT Family Medicine; ATTEND Family Medicine
DX: Z51.5 Encounter for palliative care (principal); C34.90 Malignant neoplasm of unspecified part of unspecified bronchus or lung; C79.31 Secondary malignant neoplasm of brain; Z66 Do not resuscitate
CPT/HCPCS: J1953; J2270